=== PATIENT | female | born 1995 | race Caucasian/White ===

== ENCOUNTER → 2016-07-22 | Outpatient (CLI) | payer MEDICAID ==
[2016-07-22 14:05] LABS: ABSOLUTE EOSINOPHILS # (AUTO) 0.1 10^3/uL (0.0-0.6); ABSOLUTE LYMPHOCYTES (AUTO) 1.4 10^3/uL (0.5-4.7); ABSOLUTE MONOCYTES (AUTO) 1.1 10^3/uL (0.1-1.4); ABSOLUTE NEUT (AUTO) 6.2 10^3/uL (1.7-8.2); BASOPHILS % (AUTO) 0.4 % (0-2); EOSINOPHILS % (AUTO) 0.9 % (0-6); HEMATOCRIT 36.9 % (36.0-47.0); HEMOGLOBIN 12.8 g/dL (12.0-15.5); HGB HCT DIFFERENCE 1.5; LYMPHOCYTES % (AUTO) 15.9 % (13-45); MEAN CORPUSCULAR HEMOGLOBIN 30.3 pg (27.0-33.4); MEAN CORPUSCULAR HGB CONC 34.6 g/dL (32.0-36.0); MEAN CORPUSCULAR VOLUME 87 fl (80-97); MONOCYTES % (AUTO) 12.1 % (3-13); RED BLOOD COUNT 4.23 10^6/uL (3.72-5.28); RED CELL DISTRIBUTION WIDTH 12.3 % (11.5-14.0); SEGMENTED NEUTROPHILS % (AUTO) 70.7 % (42-78); WHITE BLOOD COUNT 8.8 10^3/uL (4.0-10.5)
[2016-07-22 14:32] LABS: ALANINE AMINOTRANSFERASE 37 U/L (5-35); ALBUMIN 4.2 g/dL (3.7-5.6); ALKALINE PHOSPHATASE 87 U/L (50-135); ANION GAP 15 (5-19); ASPARTATE AMINO TRANSFERASE 22 U/L (5-30); BILIRUBIN,TOTAL 1.2 mg/dL (0.2-1.3); BLOOD UREA NITROGEN 6 mg/dL (7-20); CALCIUM 9.5 mg/dL (8.4-10.2); CARBON DIOXIDE 23 mmol/L (22-30); CHLORIDE 104 mmol/L (98-107); GLUCOSE 73 mg/dL (75-110); POTASSIUM 3.9 mmol/L (3.6-5.0); SODIUM 141.9 mmol/L (137-145)
== END ==
LOC: OD 12:55
PROVIDERS: ATTEND Nurse Practitioner Acute Care
DX: R19.7 Diarrhea, unspecified (principal); R50.9 Fever, unspecified
CPT/HCPCS: 36415; 80053; 85025; 87804

== ENCOUNTER 2016-08-16 15:06 | Emergency (ER) | payer MEDICAID ==
--- NOTE | 2016-08-16 15:33 | ER Document Report ---
ED Medical Screen (RME) - General Stated Complaint: ABDOMINAL PAIN Notes: compalins of abdominal pain and orange vaginal discharge yesterday did just start a period and gave birht 5 months ago. I greeted and performed a rapid initial assessment of this patient. Comprehensive ED assessment and evaluation of the patient, analysis of test results and completion of the medical decision making process will be conducted by additional ED providers. TRAVEL OUTSIDE OF THE [place] IN LAST 30 DAYS: No - Related Data Allergies/Adverse Reactions: azithromycin [From Zithromax Z-Mark] Allergy (Mild, Verified 05/22/16 09:19) rash adhesive [Adhesive] Allergy (Verified 05/22/16 09:19) codeine [Codeine] Allergy (Verified 05/22/16:19) ITCHING, HIVES latex [Latex] Allergy (Verified 05/22/16 09:19) morphine [Morphine] Allergy (Verified 05/22/16 09:19) ITCHING, HIVES Past Medical History - Past Medical History Cardiac Medical History: Denies: Hx Hypertension - KEN SYNDROME/murmur Pulmonary Medical History: Denies: Hx Asthma Musculoskeltal Medical History: Reports Hx Musculoskeletal Trauma Skin Medical History: Reports Hx Eczema Psychiatric Medical History: Reports: Hx Anxiety, Hx Attention Deficit Hyperactivity Disorder Past Surgical History: Reports: Hx Orthopedic Surgery - left knee, Hx Tonsillectomy - Immunizations Immunizations up to date: Yes Hx Diphtheria, Pertussis, Tetanus Vaccination: Yes Physical Exam - Vital signs Vitals: Temp Pulse Resp BP Pulse Ox 98.0 F 82 18 117/68 100 08/16/16 15:08/16/16 15:08/16/16 15:08/16/16 15:29 08/16/16 15:29 Course - Vital Signs Vital signs: Temp Pulse Resp BP Pulse Ox 98.0 F 82 18 117/68 100 08/16/16 15:29 08/16/16 15:29 08/16/16 15:29 08/16/16 15:29 08/16/16 15:29
[2016-08-16 18:42] LABS: APPEARANCE,URINE SLIGHTLY-CLOUDY; BILIRUBIN,URINE NEGATIVE (NEGATIVE); GLUCOSE, URINE NEGATIVE (NEGATIVE); KETONES,URINE NEGATIVE (NEGATIVE); LEUKOCYTE ESTERASE,URINE TRACE (NEGATIVE); NITRITE,URINE NEGATIVE (NEGATIVE); PROTEIN,URINE NEGATIVE (NEGATIVE); URINE SPECIFIC GRAVITY 1.026; UROBILINOGEN,URINE NEGATIVE mg/dL (<2.0)
[2016-08-16] MEDS ORDERED: AZITHROMYCIN 1 GM SUSP PACKET PO ONE (18:54)
[2016-08-16] MEDS ORDERED: FLUCONAZOLE 100 MG TABLET PO ONE (18:55)
--- NOTE | 2016-08-16 20:07 | ER Document Report ---
ED GI/ - General Chief Complaint: Vaginal Bleeding Stated Complaint: ABDOMINAL PAIN Notes: Patient says that she's had an orange discharge for the past 2 weeks. It's been a daily occurrence and been associated with some abdominal and back pains. Last night, she also noted she was passing some blood with chunks of butler. Patient saw her local [employer] doctor just last Wednesday, 5 days ago, and she did a pelvic exam and took specimens. Patient says that when she told that about the orange discharge, she didn't say anything. Patient is not on any current medications or knows of nothing in her diet that would possibly cause the orange color. Patient has some urinary frequency as well as some burning with urination. Had a fever of the 100.1 last night. Patient is on Depakote for control. Her last cycle was June 24. TRAVEL OUTSIDE OF THE [place] IN LAST 30 DAYS: No - Related Data Allergies/Adverse Reactions: azithromycin [From Zithromax Z-Mark] Allergy (Mild, Verified 08/16/16 20:04) rash adhesive [Adhesive] Allergy (Verified 08/16/16 20:04) codeine [Codeine] Allergy (Verified 08/16/16 20:04) ITCHING, HIVES latex [Latex] Allergy (Verified 08/16/16 20:04) morphine [Morphine] Allergy (Verified 08/16/16 20:04) ITCHING, HIVES Past Medical History - Social History Smoking Status: Unknown if Ever Smoked Cigarette use (# per day): No Family History: Reviewed & Not Pertinent, CVA Patient has suicidal ideation: No Patient has homicidal ideation: No Musculoskeltal Medical History: Reports Hx Musculoskeletal Trauma Skin Medical History: Reports Hx Eczema Psychiatric Medical History: Reports: Hx Anxiety, Hx Attention Deficit Hyperactivity Disorder Past Surgical History: Reports: Hx Cholecystectomy, Hx Orthopedic Surgery - left knee, Hx Tonsillectomy - Immunizations Immunizations up to date: Yes Hx Diphtheria, Pertussis, Tetanus Vaccination: Yes Review of Systems - Review of Systems Notes: REVIEW OF SYSTEMS: CONSTITUTIONAL : Denies fever except for last night of 100.1. EENT: Denies eye, ear, nose or mouth or throat pain or other symptoms. CARDIOVASCULAR: Denies chest pain. RESPIRATORY: Denies cough, chest congestion, or shortness of breath. GASTROINTESTINAL: See history of present illness. GENITOURINARY: See history of present illness. MUSCULOSKELETAL: Denies back or neck pain. Denies joint pain or swelling. SKIN: Denies rash or skin lesions. NEUROLOGICAL: Denies LOC or altered mental status. Denies headache. Denies sensory loss or motor deficits. ALL OTHER SYSTEMS REVIEWED AND NEGATIVE. Physical Exam - Vital signs Vitals: Temp Pulse Resp BP Pulse Ox 98.0 F 82 18 117/68 100 08/16/16 15:29 08/16/16 15:29 08/16/16 15:29 08/16/16 15:29 08/16/16 15:29 - Notes Notes: PHYSICAL EXAMINATION: GENERAL: Well-appearing, in no acute distress. Vital signs are normal. HEAD: Atraumatic, normocephalic. NECK: Normal range of motion, supple. LUNGS: Breath sounds clear and equal bilaterally. HEART: Regular rate and rhythm without murmurs. ABDOMEN: Soft, nontender. No guarding or rebound. BACK: No tenderness throughout entire back. EXTREMITIES: Normal range of motion without pain. NEUROLOGICAL: Normal speech, normal gait. Normal sensory, motor, and reflex exams. Awake, alert, and oriented x3. Cranial nerves normal. SKIN: Warm, dry, no rashes. - Genitourinary External exam: Normal Speculum exam: Cervix closed, Other - Nothing orange seen in the vaginal exam.. No: Vaginal discharge Vaginal bleeding: Mild - couple of small droplets of blood are present at the cervical os. It's a relatively bright, pink color not deep burgundy colored like total blood. I don't characterize it as orange, however. Bimanuel exam: Normal. No: Cervical motion tender, Adnexal mass, Adnexal tenderness, Uterus enlarged Course - Re-evaluation Re-evalutation: 08/16/16 20:39 Plan is to treat the patient is a bacterial vaginosis with multi drug treatment. If her symptoms do not resolve in 3-4 days, advised her to follow back up with Dr. Salamanca in a week. Should she develop fever or significant abdominal pains, patient is advised to return for reevaluation and further testing such as an ultrasound. - Vital Signs Vital signs: Temp Pulse Resp BP Pulse Ox 98.3 F 86 20 115/72 99 08/16/16 20:24 08/16/16 20:24 08/16/16 20:24 08/16/16 20:24 08/16/16 20:24 - Laboratory Laboratory results interpreted by me: 08/16/16 18:10 Urine Blood SMALL H Ur Leukocyte Esterase TRACE H 08/16/16 20:40 Urine test negative. Discharge - Discharge Clinical Impression: Bacterial vaginosis Condition: Stable Disposition: HOME, SELF-CARE Additional Instructions: VAGINITIS: Your exam shows that you have vaginitis, a vaginal infection. The infection can be caused by a many different organisms, including trichomonas or Gardnerella. The usual symptoms are vaginal irritation and discharge. The treatment is usually antibiotics such as Flagyl. Laboratory tests can determine which germ is responsible. Use the medication as prescribed. Because this infection can be transmitted sexually, your sexual partner may need to be checked and treated also. If your physician has not discussed this with you, please check before resuming sexual relations. If a culture shows gonorrhea or chlamydia, the infection must be reported to the health department. Call the doctor if you develop pelvic pain, fever, or problems with urination, or if you don't improve as expected. VAGINOSIS, BACTERIAL: Your exam shows you have bacterial vaginosis. This condition is due to an overgrowth of bacteria in the vagina. Symptoms may include vaginal itching or pain, a smelly discharge, and sometimes burning with urination. Normally this is not transmitted by sexual contact. Vaginosis can be treated with oral or topical antibiotics. Metronidazole ( Flagyl) pills are usually effective. Topical vaginal creams include Cleocin and Metro-Gel. You should avoid sexual contact until your symptoms are all better. Call the doctor if you develop pelvic pain, fever, or problems with urination, or if you don't improve as expected. VAGINAL YEAST INFECTION: You have evidence of a yeast infection -- called "marisela." A vaginal yeast infection often causes itching and discharge. While not dangerous, it can be very unpleasant. A yeast infection often follows the use of powerful antibiotics. It is more likely to occur in diabetics. The treatment now is usually a single pill of Diflucan, but also an antifungal cream or suppository may be used for a few days. You do not need to avoid sexual intercourse. Recurrences are common. You can make a recurrence less likely by wearing cotton underwear and avoiding tight clothing. For mild recurrences, you can try ungo-keh-hozpnrm creams or suppositories that are made specifically for yeast. If the symptoms do not resolve, you should follow up for re-examination. Sometimes treatment of the sexual partner is necessary if infections are recurrent. VAGINAL TRICHOMONAS INFECTION: Trichomoniasis is infection of the vagina or male genital tract with Trichomonas vaginalis. It can be asymptomatic or cause urethritis, vaginitis, or occasionally cystitis, epididymitis, or prostatitis. Diagnosis is by microscopic examination of vaginal or prostatic secretions or by urethral culture. Patients and sex partners are treated with metronidazole. T. vaginalis is a flagellated, sexually transmitted protozoan that more often infects women (about 20% of women of reproductive age) than men. Infection may be asymptomatic in either sex, but asymptomatic is the rule for men. In men, protozoa may persist for long periods in the tract without causing symptoms; thus, protozoa may be transmitted unwittingly to sex partners. Trichomoniasis may account for up to 5% of nongonococcal, nonchlamydial urethritis in men in some areas. Co-infection with gonorrhea and other sexually transmitted diseases (STDs) is common. In women, symptoms range from none to copious, yellow-green, frothy vaginal discharge with soreness of the vulva and perineum, dyspareunia, and dysuria. Asymptomatic infection may become symptomatic at any time as the vulva and perineum become inflamed and edema develops in the labia. The vaginal quinn and surface of the cervix may have punctate, red "strawberry" spots. Urethritis and possibly cystitis may also occur. Men are usually asymptomatic; however, sometimes urethritis results in a discharge that may be transient, frothy, or purulent or that causes dysuria and frequency, usually early in the morning. Often, urethritis is mild and causes only minimal urethral irritation and occasional moisture at the urethral meatus , under the foreskin, or both. Epididymitis and prostatitis are rare complications. Trichomoniasis is suspected in women with vaginitis, in men with urethritis , and in their sex partners. Suspicion is high if symptoms persist after patients have been evaluated and treated for other infections such as gonorrhea and chlamydial, mycoplasmal, and ureaplasmal infections. In women, diagnosis is based on clinical criteria and in-office testing. The saline wet mount is examined microscopically as soon as possible to detect trichomonads.In men, microscopy of urine is insensitive, although occasionally organisms are visible in a first-voided morning specimen or a centrifuged specimen. Cultures of urine and urethral swabs are more sensitive. As with diagnosis of any STD, patients with trichomoniasis should be tested to exclude other common STDs such as gonorrhea and chlamydial infection. Metronidazole or tinidazole 2 g po in a single dose cures up to 95% of women if sex partners are treated simultaneously. Effectiveness of single-dose regimens in men is not as clear, so treatment is typically with metronidazole or tinidazole 500 mg bid for 5 to 7 days. Sex partners should be screened and treated for trichomoniasis and other STDs. If poor adherence to follow-up is likely, treatment can be initiated in sex partners of patients with documented trichomoniasis without confirming the diagnosis in the partner. Metronidazole Metronidazole (Flagyl) has been prescribed. This medication is used to kill a type of bacteria called anaerobes, and protozoan parasites such as trichomonas and Giardia. Flagyl often causes a metallic taste in the mouth and mild nausea. Do not use alcohol in any form with Flagyl (including alcohol in medication elixirs). Flagyl interacts with alcohol to cause flushing, palpitations, headache, stomach cramps, and vomiting. Do not use Flagyl if you are taking Antabuse (disulfiram). Call the doctor at once if you develop rash, shortness of breath, itching, or lightheadedness. Doxycycline Doxycycline (Vibramycin, Doryx) is an antibiotic of the tetracycline family. This type of drug is useful for infections of the respiratory tract and genital tract, and is sometimes used for intestinal infections. Unlike most tetracyclines, doxycycline can be taken with food. It is longer acting, and (usually) less prone to side effects than regular tetracycline. Tetracycline antibiotics can stain immature teeth and SHOULD NOT BE TAKEN BY CHILDREN, NURSING MOTHERS, OR WOMEN. Tetracyclines can make you more prone to sunburn. Abdominal cramping, nausea, and diarrhea are occasional side effects. Women may experience vaginal yeast infections. Call the doctor at once if you develop hives, itching, shortness of breath , or lightheadedness. FLUCONAZOLE: Fluconazole (Diflucan) is an antifungal drug. It is useful for serious fungal infections, but is also excellent for oral or vaginal yeast infections. Diflucan interacts with some medicines. This is a concern if you are taking anticoagulants (such as Coumadin), phenytoin (Dilantin), cyclosporin, or oral hypoglycemics (such as tolbutamide, Orinase, glipizide, Glucotrol, glyburide, DiaBeta, Glynase, and Micronase). Be sure the doctor knows if you are taking one of these medicines. We don't know how Diflucan affects . If you are planning to become , discuss this with your doctor. Diflucan has few side effects. Minor side effects may include nausea, headache, or diarrhea. Call the doctor if you develop a skin rash, shortness of breath, or other new symptoms. FOLLOW-UP CARE: If you have been referred to a physician for follow-up care, call the physician s office for an appointment as you were instructed or within the next two days. If you experience worsening or a significant change in your symptoms, notify the physician immediately or return to the Emergency Department at any time for re-evaluation. Don't nurse your baby while you are taking these prescribed medications. Prescriptions: Doxycycline Hyclate 100 mg PO BID #14 capsule Fluconazole [Diflucan] 150 mg PO ONCE PRN #1 tablet PRN Reason: Metronidazole 500 mg PO BID #14 tablet Promethazine HCl [Phenergan 25 mg Tablet] 1 - 2 tab PO Q6H PRN #20 tablet PRN Reason: Referrals: JONATHAN SALAMANCA MD [[facility]] - Follow up in 3-5 days
[2016-08-16 20:13] LABS: CHLAM PCR NOT DETECTED (NOT DETECT)
[2016-08-16 20:25] VITALS: BP 115/72
== END 2016-08-16 20:26 | disposition home or self-care (01) ==
LOC: ER 15:06
DX: N76.0 Acute vaginitis (principal); B96.89 Other specified bacterial agents as the cause of diseases classified elsewhere; Z91.040 Latex allergy status; Z88.6 Allergy status to analgesic agent; Z88.3 Allergy status to other anti-infective agents; Z90.49 Acquired absence of other specified parts of digestive tract
CPT/HCPCS: 81001; 81025; 87210; 87491; 87591; 99283

== ENCOUNTER → 2016-09-18 | Outpatient (CLI) | payer MEDICAID | LOC: WI 07:04 | PROVIDERS: ATTEND Nurse Practitioner | DX: R10.9 Unspecified abdominal pain (principal) | CPT/HCPCS: 76700; 76856 ==

== ENCOUNTER → 2016-09-29 | Outpatient (CLI) | payer MEDICAID | LOC: RAD 10:49 | PROVIDERS: ATTEND Nurse Practitioner | DX: R10.9 Unspecified abdominal pain (principal) | CPT/HCPCS: 76830 ==

== ENCOUNTER 2016-10-20 13:39 | Emergency (ER) | payer MEDICAID ==
[2016-10-20] MEDS ORDERED: KETOROLAC TROMETHAMINE 60 MG/2 ML SDV IM ONE (14:52)
[2016-10-20] MEDS ORDERED: NORMAL SALINE 1000 ML 1,000 ML IV ONE (14:52)
[2016-10-20] MEDS ORDERED: ONDANSETRON 4 MG TAB.RAPDIS PO ONE (14:52)
--- NOTE | 2016-10-20 15:00 | ER Document Report ---
ED Medical Screen (RME) - General Mode of Arrival: Ambulatory Information source: Patient TRAVEL OUTSIDE OF THE [place] IN LAST 30 DAYS: No - HPI Patient complains to provider of: Abdominal pain and vomiting Onset: Other - 2 days ago Associated Symptoms: Other - see notes above <ZE TRUJILLO - Last Filed: 10/20/16 14:52> <BETTY BEASLEY - Last Filed: 10/20/16 15:24> - General Chief Complaint: Nausea/Vomiting Stated Complaint: VOMITING Notes: 20 year old female with history of emergency cholecystectomy presents to the ED complaining of vomiting and right abdominal pain that started 2 days ago. Patient reports that ever since she had the cholecystectomy she has been passing dark urine with some blood. Patient was seen by her primary care physician 3 weeks ago where there was a positive test of blood in her urine. Patient denies dysuria or history of kidney stones. (ZE TRUJILLO) - Related Data Allergies/Adverse Reactions: azithromycin [From Zithromax Z-Mark] Allergy (Mild, Verified 10/20/16 14:49) rash adhesive [Adhesive] Allergy (Verified 10/20/16 14:49) codeine [Codeine] Allergy (Verified 10/20/16 14:49) ITCHING, HIVES latex [Latex] Allergy (Verified 10/20/16 14:49) morphine [Morphine] Allergy (Verified 10/20/16 14:49) ITCHING, HIVES Home Medications: Current Home Medications No Home Medications 10/20/16 [History] Past Medical History - General Information source: Patient - Past Medical History Cardiac Medical History: Denies: Hx Hypertension - KEN SYNDROME/murmur Pulmonary Medical History: Denies: Hx Asthma Renal/ Medical History: Denies: Hx Peritoneal Dialysis Musculoskeltal Medical History: Reports Hx Musculoskeletal Trauma Skin Medical History: Reports Hx Eczema Psychiatric Medical History: Reports: Hx Anxiety, Hx Attention Deficit Hyperactivity Disorder Past Surgical History: Reports: Hx Cholecystectomy, Hx Orthopedic Surgery - left knee, Hx Tonsillectomy - Immunizations Immunizations up to date: Yes Hx Diphtheria, Pertussis, Tetanus Vaccination: Yes <ZE TRUJILLO - Last Filed: 10/20/16 14:52> Review of Systems - Review of Systems Constitutional: No symptoms reported EENT: No symptoms reported Cardiovascular: No symptoms reported Respiratory: No symptoms reported Gastrointestinal: See HPI, Abdominal pain - right side, Vomiting Genitourinary: No symptoms reported Female Genitourinary: No symptoms reported Musculoskeletal: No symptoms reported Skin: No symptoms reported Hematologic/Lymphatic: No symptoms reported Neurological/Psychological: No symptoms reported -: Yes All other systems reviewed and negative <ZE TRUJILLO - Last Filed: 10/20/16 14:52> Physical Exam - General General appearance: Alert In distress: None - Respiratory Respiratory status: No respiratory distress - Abdominal Inspection: Normal Distension: No distension Tenderness: Tender - RUQ and RLQ tenderness to palpation <ZE TRUJILLO - Last Filed: 10/20/16 14:52> Course <ZE TRUJILLO - Last Filed: 10/20/16 14:52> - Laboratory Result Diagrams: 10/20/16 14:59 10/20/16 14:59 <BETTY BEASLEY - Last Filed: 10/20/16 15:24> - Re-evaluation Re-evalutation: 10/20/16 15:24 I personally performed the services described in the documentation, reviewed and edited the documentation which was dictated to the scribe in my presence, and it accurately records my words and actions. (BETTY BEASLEY) - Vital Signs Vital signs: Temp Pulse Resp BP Pulse Ox 97.4 F 90 16 128/62 H 99 10/20/16 13:47 10/20/16 13:47 10/20/16 13:47 10/20/16 13:47 10/20/16 13:47 - Laboratory Laboratory results interpreted by me: 10/20/16 14:59 Urine Ketones TRACE H Scribe Documentation - Scribe Written by Scribe:: Luis Felipe Greenberg, 10/20/2016 1500 acting as scribe for :: Olga <ZE TRUJILLO - Last Filed: 10/20/16 14:52>
[2016-10-20 15:11] LABS: ABSOLUTE BASOPHILS # (AUTO) 0.1 10^3/uL (0.0-0.2); ABSOLUTE EOSINOPHILS # (AUTO) 0.2 10^3/uL (0.0-0.6); ABSOLUTE LYMPHOCYTES (AUTO) 2.3 10^3/uL (0.5-4.7); ABSOLUTE MONOCYTES (AUTO) 0.7 10^3/uL (0.1-1.4); BASOPHILS % (AUTO) 0.8 % (0-2); EOSINOPHILS % (AUTO) 2.3 % (0-6); HEMATOCRIT 43.1 % (36.0-47.0); HEMOGLOBIN 14.5 g/dL (12.0-15.5); HGB HCT DIFFERENCE 0.4; MEAN CORPUSCULAR HEMOGLOBIN 29.2 pg (27.0-33.4); MEAN CORPUSCULAR HGB CONC 33.7 g/dL (32.0-36.0); MEAN CORPUSCULAR VOLUME 87 fl (80-97); MONOCYTES % (AUTO) 8.5 % (3-13); RED BLOOD COUNT 4.97 10^6/uL (3.72-5.28); RED CELL DISTRIBUTION WIDTH 13.9 % (11.5-14.0); SEGMENTED NEUTROPHILS % (AUTO) 60.4 % (42-78); WHITE BLOOD COUNT 8.4 10^3/uL (4.0-10.5)
[2016-10-20 15:16] LABS: APPEARANCE,URINE SLIGHTLY-CLOUDY; BILIRUBIN,URINE NEGATIVE (NEGATIVE); GLUCOSE, URINE NEGATIVE (NEGATIVE); KETONES,URINE TRACE mg/dL (NEGATIVE); LEUKOCYTE ESTERASE,URINE NEGATIVE (NEGATIVE); NITRITE,URINE NEGATIVE (NEGATIVE); PROTEIN,URINE NEGATIVE (NEGATIVE); URINE SPECIFIC GRAVITY 1.031; UROBILINOGEN,URINE NEGATIVE mg/dL (<2.0)
[2016-10-20 15:28] LABS: ALANINE AMINOTRANSFERASE 28 U/L (5-35); ALKALINE PHOSPHATASE 91 U/L (50-135); ANION GAP 13 (5-19); ASPARTATE AMINO TRANSFERASE 20 U/L (5-30); BILIRUBIN,DIRECT 0.1 mg/dL (0.0-0.4); BILIRUBIN,TOTAL 0.7 mg/dL (0.2-1.3); BLOOD UREA NITROGEN 11 mg/dL (7-20); CALCIUM 10.7 mg/dL (8.4-10.2); CARBON DIOXIDE 28 mmol/L (22-30); CHLORIDE 104 mmol/L (98-107); CREATININE RESULT 0.78 mg/dL (0.52-1.25); GLUCOSE 52 mg/dL (75-110); POTASSIUM 4.2 mmol/L (3.6-5.0); SODIUM 145.4 mmol/L (137-145); TOTAL PROTEIN 7.8 g/dL (6.3-8.2)
--- NOTE | 2016-10-20 15:32 | ER Document Report ---
ED GI/ - General Chief Complaint: Nausea/Vomiting Stated Complaint: VOMITING Mode of Arrival: Ambulatory Information source: Patient TRAVEL OUTSIDE OF THE [place] IN LAST 30 DAYS: No - HPI Patient complains to provider of: Abdominal pain. No: Diarrhea Onset: Other - 2 days ago Quality of pain: Dull Severity at maximum: Moderate Associated symptoms: Diarrhea, Nausea, Vomiting. denies: Chest pain, Chills, Constipation, Dizzy, Dysuria, Fever, Hard stool, Hematuria, Odor, Shortness of breath, Sweaty, Syncope, Urinary hesitancy, Urinary frequency, Urinary retention , Urinary urgency, Vaginal discharge Notes: 10/20/16 15:30 Patient arrives with complaints of abdominal pain. She states she's had constant right-sided abdominal pain for the last few days. She had associated nausea vomiting and diarrhea as well. No fever. No dysuria or hematuria. She had her gallbladder removed in May. She states that she was seen by her primary care physician approximately 3 weeks ago was noted to have blood in her urine. She denies any history of kidney stones. She denies any rash. No injury. She is breast-feeding at this time. She denies any other complaints at this time. Nothing makes the pain better or worse. - Related Data Allergies/Adverse Reactions: azithromycin [From Zithromax Z-Mrak] Allergy (Mild, Verified 10/20/16 14:49) rash adhesive [Adhesive] Allergy (Verified 10/20/16 14:49) codeine [Codeine] Allergy (Verified 10/20/16 14:49) ITCHING, HIVES latex [Latex] Allergy (Verified 10/20/16 14:49) morphine [Morphine] Allergy (Verified 10/20/16 14:49) ITCHING, HIVES Past Medical History - General Information source: Patient - Social History Smoking Status: Unknown if Ever Smoked Family History: Reviewed & Not Pertinent, CVA Patient has suicidal ideation: No Patient has homicidal ideation: No - Past Medical History Cardiac Medical History: Denies: Hx Hypertension - KEN SYNDROME/murmur Pulmonary Medical History: Denies: Hx Asthma Renal/ Medical History: Denies: Hx Peritoneal Dialysis Musculoskeltal Medical History: Reports Hx Musculoskeletal Trauma Skin Medical History: Reports Hx Eczema Psychiatric Medical History: Reports: Hx Anxiety, Hx Attention Deficit Hyperactivity Disorder Past Surgical History: Reports: Hx Cholecystectomy, Hx Orthopedic Surgery - left knee, Hx Tonsillectomy - Immunizations Immunizations up to date: Yes Hx Diphtheria, Pertussis, Tetanus Vaccination: Yes Review of Systems - Review of Systems -: Yes All other systems reviewed and negative Physical Exam - Vital signs Vitals: Temp Pulse Resp BP Pulse Ox 97.4 F 90 16 128/62 H 99 10/20/16 13:47 10/20/16 13:47 10/20/16 13:47 10/20/16 13:47 10/20/16 13:47 Interpretation: Normal - General General appearance: Appears well, Alert - HEENT Head: Normocephalic, Atraumatic Eyes: Normal Pupils: PERRL Mucous membranes: Normal Pharynx: Normal - Respiratory Respiratory status: No respiratory distress Breath sounds: Normal - Cardiovascular Rhythm: Regular Heart sounds: Normal auscultation Murmur: No - Abdominal Inspection: Normal Distension: No distension Bowel sounds: Normal Tenderness: Tender - Right mid abdomen. No guarding or rebound. Organomegaly: No organomegaly - Back Back: Normal, Nontender, CVA tenderness - Extremities General upper extremity: Normal inspection, Nontender, Normal color, Normal ROM , Normal temperature General lower extremity: Normal inspection, Nontender, Normal color, Normal ROM , Normal temperature, Normal weight bearing. No: Esequiel's sign - Neurological Neuro grossly intact: Yes Cognition: Normal Orientation: AAOx4 Edda Coma Scale Eye Opening: Spontaneous Edda Coma Scale Verbal: Oriented Edda Coma Scale Motor: Obeys Commands [place] Coma Scale Total: 15 Speech: Normal Motor strength normal: LUE, RUE, LLE, RLE Sensory: Normal - Psychological Associated symptoms: Normal affect, Normal mood - Skin Skin Temperature: Warm Skin Moisture: Dry Skin Color: Normal Course - Re-evaluation Re-evalutation: 10/20/16 17:42 Patient is nontoxic-appearing and stable vitals. The patient arrives with right sided abdominal pain for the last few days. She has mild tenderness to palpation of the right abdomen. There is no rebound or guarding. Lab work is all unremarkable with a normal white count and normal LFTs. Urine shows no signs of infection. is negative. Patient is breast-feeding and refused IV contrast as this would cause her to have to pump and dump her breast milk for 24 hours, therefore a noncontrast CT was obtained. There were not able to visualize the appendix, but there was no other signs of inflammation noted, and the patient was noted to have a large amount of stool within the ascending colon. It is possible that this constipation could be the source of her pain. I also explained to the patient that the fact that we did a noncontrast study that is not completely impossible to completely rule out acute appendicitis although this is less likely with a normal white count as well. She was instructed to follow up if her pain does not improve in the next 24-48 hours and return sooner if her pain worsens or she may require a contrasted CAT scan to further evaluate her symptoms. Patient will be discharged home with MiraLAX Zoan. She is instructed Tylenol or Motrin is here for pain. The patient is noted to have elevated blood pressure during today's emergency department visit. The patient was informed of this finding. The patient was instructed that this may be related to pre-hypertension and requires further evaluation with a primary care provider. The patient has no hypertensive symptoms at this time. The patient's evaluation of abdominal pain showed no obvious reason for pain during this emergency department visit today. I explained that there is the possibility that there could be a serious reason for the abdominal pain that was not discovered with today's workup. I stressed the importance of close observation as well as close follow-up for re-evaluation of the abdominal pain. The patient and/or family verbalized understanding of these instructions. He will be instructed to return immediately to the emergency department for increased abdominal pain, persistent vomiting, blood in vomit or stool, or any other change in symptoms or concerns. The patient's emergency department workup and current diagnosis were explained to the patient and or family. Follow-up instructions were provided. Medications if prescribed were discussed. Instructions for when to return to the emergency department including specific worrisome symptoms were discussed with the patient and/or family. - Vital Signs Vital signs: Temp Pulse Resp BP Pulse Ox 97.4 F 90 16 128/62 H 99 10/20/16 13:47 10/20/16 13:47 10/20/16 13:47 10/20/16 13:47 10/20/16 13:47 - Laboratory Result Diagrams: 10/20/16 14:59 10/20/16 14:59 Laboratory results interpreted by me: 10/20/16 10/20/16 14:59 14:59 Sodium 145.4 H Glucose 52 L Calcium 10.7 H Urine Ketones TRACE H - Diagnostic Test Radiology reviewed: Image reviewed, Reports reviewed - CT shows nonvisualization of the appendix, no other signs of inflammation, large amount of stool within the ascending colon. Discharge - Discharge Clinical Impression: Abdominal pain Qualifiers: Abdominal location: right lower quadrant Qualified Code(s): R10.31 - Right lower quadrant pain Constipation Qualifiers: Constipation type: unspecified constipation type Qualified Code(s): K59.00 - Constipation, unspecified Condition: Stable Disposition: HOME, SELF-CARE Instructions: Abdominal Pain ([facility]), Constipation ([facility]) Additional Instructions: Take medications as prescribed. Drink plenty of fluids. Follow-up with your doctor if not better in 24-48 hours, return to emergency Department for increased pain, high fever, persistent vomiting, or any further concerns. Your blood pressure was elevated during today's visit. Have this rechecked with your doctor. Prescriptions: Ondansetron HCl [Zofran 4 mg Tablet] 1 tab PO Q6H PRN #10 tablet PRN Reason: Polyethylene Glycol 3350 [Miralax] 119 gm PO DAILY #1 bottle Forms: Elevated Blood Pressure
[2016-10-20 17:53] VITALS: BP 103/63
== END 2016-10-20 18:01 | disposition home or self-care (01) ==
LOC: ER 13:39
DX: R10.31 Right lower quadrant pain (principal); K59.00 Constipation, unspecified; R11.2 Nausea with vomiting, unspecified; R10.9 Unspecified abdominal pain
CPT/HCPCS: 99284; 96372; 36415; 84703; 85025; 80053; 81001; 74176; J1885; S0119; J7030

== ENCOUNTER → 2016-11-10 | Outpatient (CLI) | payer MEDICAID ==
[2016-11-10 15:19] LABS: CHLAM PCR NOT DETECTED (NOT DETECT)
== END ==
LOC: LAB 13:41
PROVIDERS: ATTEND Nurse Practitioner Acute Care
DX: N91.2 Amenorrhea, unspecified (principal); N89.8 Other specified noninflammatory disorders of vagina
CPT/HCPCS: 36415; 84703; 87210; 87491; 87591

== ENCOUNTER 2016-11-21 14:07 | Emergency (ER) | payer MEDICAID ==
--- NOTE | 2016-11-21 14:55 | ER Document Report ---
HPI - HPI Patient complains to provider of: streaking in her right breast, vaginal itch, Onset: Other - Few days Onset/Duration: Gradual Pain Level: 4 Context: 20-year-old female that is breast-feeding with multiple complaints. The thing this bothering her most is the red streaks in her right breast and vaginal itching. She also states that she is now taking acyclovir for recurrent left facial shingles. She also got a itchy Yudy area mid upper thoracic back the base of her neck and was worried that she was developing shingles there is well. The pain from that area radiates to both shoulders. Associated Symptoms: None Exacerbated by: Denies Relieved by: Denies Similar symptoms previously: No Recently seen / treated by doctor: No - ROS ROS below otherwise negative: Yes Systems Reviewed and Negative: Yes All other systems reviewed and negative - REPRODUCTIVE Reproductive: DENIES: : - DERM Skin Color: Normal Past Medical History - General Information source: Patient - Social History Smoking Status: Never Smoker Frequency of alcohol use: None Drug Abuse: None Family History: Reviewed & Not Pertinent, CVA Patient has suicidal ideation: No Patient has homicidal ideation: No Renal/ Medical History: Denies: Hx Peritoneal Dialysis Musculoskeltal Medical History: Reports Hx Musculoskeletal Trauma Skin Medical History: Reports Hx Eczema Psychiatric Medical History: Reports: Hx Anxiety, Hx Attention Deficit Hyperactivity Disorder Past Surgical History: Reports: Hx Cholecystectomy, Hx Orthopedic Surgery - left knee, Hx Tonsillectomy - Immunizations Immunizations up to date: Yes Hx Diphtheria, Pertussis, Tetanus Vaccination: Yes Vertical Provider Document - CONSTITUTIONAL Agree With Documented VS: Yes Exam Limitations: No Limitations - INFECTION CONTROL TRAVEL OUTSIDE OF THE [place] IN LAST 30 DAYS: No - HEENT HEENT: Normocephalic, Pharyngeal Erythema. negative: Tympanic Membrane Red Notes: no rash on upper back or face - NECK Neck: Supple. negative: Lymphadenopathy-Left, Lymphadenopathy-Right - RESPIRATORY Respiratory: Breath Sounds Normal, No Respiratory Distress O2 Sat by Pulse Oximetry: 100 Notes: pink streaks, no mass right breast, pt states nipple is sore - CARDIOVASCULAR Cardiovascular: Regular Rate, Regular Rhythm - GI/ABDOMEN Gastrointestinal: Abdomen Soft, Abdomen Non-Tender, No Organomegaly - BACK Back: Normal Inspection - MUSCULOSKELETAL/EXTREMETIES Musculoskeletal/Extremeties: FIDE NINO - NEURO Level of Consciousness: Awake, Alert, Appropriate - DERM Integumentary: Warm, Dry Course - Vital Signs Vital signs: Temp Pulse Resp BP Pulse Ox 97.6 F 84 18 111/72 100 11/21/16 14:14 11/21/16 14:14 11/21/16 14:14 11/21/16 14:14 11/21/16 14:14 Discharge - Discharge Clinical Impression: early mastitis, Vaginal itching Condition: Good Disposition: HOME, SELF-CARE Instructions: Nystatin ([facility]), Cephalexin ([facility]) Additional Instructions: see your doctor for follow up to er any increased swelling, pain, fever, reddness it is OK to nurse after applying the nystatin to nipples Please complete the patient satisfaction survey if you get one, and return it.. If you do not receive a survey, then you can go to the [facility] website, [email or web address] and place your comments about your very good care. Thank you very much. It was a pleasure being your medical provider today. Prescriptions: Cephalexin Monohydrate [Keflex 500 mg Capsule] 500 mg PO QID #28 capsule Nystatin 100,000 unit TOP QID #60 ml Referrals: XAVI THOMAS, MONONITROTOLUENE OPERATOR [Primary Care Provider] - Follow up as needed
[2016-11-21 16:39] VITALS: BP 108/57
== END 2016-11-21 16:39 | disposition home or self-care (01) ==
LOC: ER 14:07
DX: N61.0 Mastitis without abscess (principal); L29.8 Other pruritus; B02.9 Zoster without complications; R20.2 Paresthesia of skin
CPT/HCPCS: 87210; 99283

== ENCOUNTER 2016-12-06 03:00 | Emergency (ER) | payer MEDICAID ==
[2016-12-06 05:17] VITALS: BP 101/67
== END 2016-12-06 05:20 | disposition left against medical advice (07) ==
LOC: ER 03:00
DX: Z53.9 Procedure and treatment not carried out, unspecified reason (principal); F41.9 Anxiety disorder, unspecified

== ENCOUNTER 2016-12-29 20:59 | Emergency (ER) | payer MEDICAID ==
--- NOTE | 2016-12-29 22:29 | EKG REPORT ---
SEVERITY:- BORDERLINE ECG - SINUS TACHYCARDIA PROBABLE LEFT ATRIAL ABNORMALITY : Confirmed by: Whitley Arenas 29-Dec-2016 22:28:23
--- NOTE | 2016-12-30 00:14 | ER Document Report ---
ED General - General Mode of Arrival: Ambulatory Information source: Patient TRAVEL OUTSIDE OF THE [place] IN LAST 30 DAYS: No <MARY JO FUENTES - Last Filed: 12/30/16 03:54> <LUIS FERNANDO CEDEÑO - Last Filed: 01/11/17 11:21> - General Chief Complaint: Chest Pain Stated Complaint: CHEST PAIN Time Seen by Provider: 12/29/16 23:43 Notes: patient is a 21-year-old female that presents to the emergency department today with complaints of chest pain that began around 2030 today. Patient states the pain seemed to radiate to her back and she noticed that she was feeling tingling around her lips and her fingertip when this occurred. Patient states she does have a history of panic attacks. Patient complains of left calf pain as well. Patient denies a history of any clotting disorders or usage of control. (MARY JO FUENTES) - Related Data Allergies/Adverse Reactions: azithromycin [From Zithromax Z-Mark] Allergy (Mild, Verified 01/09/17 17:07) rash adhesive [Adhesive] Allergy (Verified 01/09/17 17:07) codeine [Codeine] Allergy (Verified 01/09/17 17:07) ITCHING, HIVES latex [Latex] Allergy (Verified 01/09/17 17:07) morphine [Morphine] Allergy (Verified 01/09/17 17:07) ITCHING, HIVES Past Medical History - General Information source: Patient - Social History Smoking Status: Never Smoker Frequency of alcohol use: None Drug Abuse: None Lives with: Family Family History: Reviewed & Not Pertinent, CVA Patient has suicidal ideation: No Patient has homicidal ideation: No - Past Medical History Cardiac Medical History: Denies: Hx Hypertension - KEN SYNDROME/murmur Pulmonary Medical History: Denies: Hx Asthma Renal/ Medical History: Denies: Hx Peritoneal Dialysis Musculoskeltal Medical History: Reports Hx Musculoskeletal Trauma Skin Medical History: Reports Hx Eczema Psychiatric Medical History: Reports: Hx Anxiety, Hx Attention Deficit Hyperactivity Disorder Past Surgical History: Reports: Hx Cholecystectomy, Hx Orthopedic Surgery - left knee, Hx Tonsillectomy - Immunizations Immunizations up to date: Yes Hx Diphtheria, Pertussis, Tetanus Vaccination: Yes <MARY JO FUENTES - Last Filed: 12/30/16 03:54> Review of Systems - Review of Systems Constitutional: No symptoms reported EENT: No symptoms reported Cardiovascular: See HPI, Chest pain Respiratory: No symptoms reported Gastrointestinal: No symptoms reported Genitourinary: No symptoms reported Female Genitourinary: No symptoms reported Musculoskeletal: See HPI, Other - left calf pain Skin: No symptoms reported Hematologic/Lymphatic: No symptoms reported Neurological/Psychological: No symptoms reported -: Yes All other systems reviewed and negative <MARY JO FUENTES - Last Filed: 12/30/16 03:54> Physical Exam <MARY JO FUENTES - Last Filed: 12/30/16 03:54> <LUIS FERNANDO CEDEÑO - Last Filed: 01/11/17 11:21> - Vital signs Vitals: Temp Pulse Resp BP Pulse Ox 97.9 F 113 H 16 127/65 H 96 12/29/16 21:13 12/29/16 21:13 12/29/16 21:13 12/29/16 21:13 12/29/16 21:13 - Notes Notes: Physical Exam: General: Alert, appears well. HEENT: Normocephalic. Atraumatic. PERRL. Extraocular movements intact. Oropharynx clear. Neck: Supple. Non-tender. Respiratory: No respiratory distress. Clear and equal breath sounds bilaterally. Cardiovascular: Regular rate and rhythm. Abdominal: Normal Inspection. Non-tender. No distension. Normal Bowel Sounds. Back: Non-tender. No deformity or step off. Extremities: Moves all four extremities. Upper extremities: Normal inspection. Normal ROM. Lower extremities: Normal inspection. No edema. Normal ROM. Calves are symmetric in size and nontender bilaterally. Neurological: Normal cognition. AAOx4. Normal speech. Psychological: Normal affect. Normal Mood. Skin: Warm. Dry. Normal color. (MARY JO FUENTES) Course - Laboratory Result Diagrams: 12/30/16 00:37 12/30/16 00:37 <MARY JO FUENTES - Last Filed: 12/30/16 03:54> - Laboratory Result Diagrams: 12/30/16 00:37 12/30/16 00:37 <LUIS FERNANDO CEDEÑO - Last Filed: 01/11/17 11:21> - Re-evaluation Re-evalutation: 12/30/16 03:04 Patient presents emergency department chief complaint of chest pain panic attack. She states prior to arrival she started to develop sharp stabbing chest pain that hurt when she took a deep breath. She does run a 30 at night took some aspirin. She has a history of anxiety and depression but states did not feel like an anxiety attack. She denies any recent history of travel surgery immobilization DVT or pulmonary emboli. On arrival she is afebrile normotensive slightly tachycardic with sinus tachycardia on EKG. No reproducible tenderness palpation left anterior chest wall. Concerns for pulmonary embolism and there is some genetic disorder in the family which she thinks predisposes to that. She is initially refusing to CT contrast because she breast-feeds and states that her daughter will not eat anything that breast milk. She asked her to bring a breast pump down which we have. This delayed the CT scan. (LUIS FERNANDO CEDEÑO) - Vital Signs Vital signs: Temp Pulse Resp BP Pulse Ox 98.4 F 75 18 109/62 99 12/30/16 03:37 12/30/16 04:42 12/30/16 04:42 12/30/16 04:42 12/30/16 04:42 - Laboratory Laboratory results interpreted by me: 12/30/16 00:37 Potassium 3.3 L Discharge <MARY JO FUENTES - Last Filed: 12/30/16 03:54> <LUIS FERNANDO CEDEÑO - Last Filed: 01/11/17 11:21> - Discharge Clinical Impression: Pleurodynia, Tachycardia Condition: Stable Disposition: HOME, SELF-CARE Additional Instructions: Chest Pain of Unclear Cause The exact cause of your chest pain isn't clear. Fortunately, there is no evidence of a dangerous medical condition. Further testing may be required to find the source of the pain. Most often, we find that this pain is coming from the chest wall -- the muscles or rib joints in the chest. But chest pain can come from the lung and lung lining, the esophagus, the heart valves or heart lining, and even the stomach or gallbladder. Rest. Eat lightly until the pain is gone. We may prescribe medicine for pain and inflammation. You should call the physician immediately if the pain radiates to the shoulder, jaw or arms; if you start to run a fever or develop a cough; or if you develop shortness of breath, or other new or alarming symptoms. Referrals: JORDIN ZIMMERMAN MD [Primary Care Provider] - (Call for an appointment to be seen in follow-up in 2-3 days return for increasing worsening or new symptoms) Scribe Attestation: 12/30/16 04:22 12/30/16 04:23 I personally performed the services described in the documentation reviewed the documentation recorded by my scribe in my presence and it accurately and completely records my words and actions (LUIS FERNANDO CEDEÑO) Scribe Documentation - Scribe Written by [employer]:: Luis Felipe Christensen, 12/30/2016 [id number] acting as scribe for :: Delgado <MARY JO FUENTES - Last Filed: 12/30/16 03:54>
[2016-12-30 00:54] LABS: ANION GAP 14 (5-19); BLOOD UREA NITROGEN 10 mg/dL (7-20); CARBON DIOXIDE 24 mmol/L (22-30); CHLORIDE 106 mmol/L (98-107); CREATININE RESULT 0.73 mg/dL (0.52-1.25); GLUCOSE 102 mg/dL (75-110); POTASSIUM 3.3 mmol/L (3.6-5.0)
[2016-12-30 00:55] LABS: ABSOLUTE EOSINOPHILS # (AUTO) 0.2 10^3/uL (0.0-0.6); ABSOLUTE LYMPHOCYTES (AUTO) 2.1 10^3/uL (0.5-4.7); ABSOLUTE MONOCYTES (AUTO) 0.6 10^3/uL (0.1-1.4); ABSOLUTE NEUT (AUTO) 5.4 10^3/uL (1.7-8.2); BASOPHILS % (AUTO) 0.5 % (0-2); EOSINOPHILS % (AUTO) 2.5 % (0-6); HEMATOCRIT 38.5 % (36.0-47.0); HEMOGLOBIN 13.1 g/dL (12.0-15.5); HGB HCT DIFFERENCE 0.8; LYMPHOCYTES % (AUTO) 25.4 % (13-45); MEAN CORPUSCULAR VOLUME 88 fl (80-97); RED BLOOD COUNT 4.36 10^6/uL (3.72-5.28); RED CELL DISTRIBUTION WIDTH 12.9 % (11.5-14.0); SEGMENTED NEUTROPHILS % (AUTO) 64.6 % (42-78); WHITE BLOOD COUNT 8.4 10^3/uL (4.0-10.5)
--- NOTE | 2016-12-30 04:21 | RADIOLOGY REPORT (SQ) ---
EXAM DESCRIPTION: CTA CHEST COMPLETED DATE/TIME: 12/30/2016 3:45 am REASON FOR STUDY: pleuritic chest pain tachycardia COMPARISON: Chest x-ray 10/22/2010. TECHNIQUE: CT scan of the chest performed using helical scanning technique with dynamic intravenous contrast injection. Images reviewed with lung, soft tissue and bone windows. Reconstructed coronal and sagittal MPR images reviewed. Additional 3 dimensional post-processing performed to develop Maximal Intensity Projection images (MT P). All images stored on PACS. All CT scanners at this facility use dose modulation, iterative reconstruction, and/or weight based d osing when appropriate to reduce radiation dose to as low as reasonably achievable (ALARA). [facility]: Dose Right [facility]: CareDose [facility]: Dose Right [facility]: Teradose 4D [facility]: CORD:USE Cord Blood Bank CONTRAST TYPE AND DOSE: contrast/concentration: Isovue 370 mg/ml; Total Contrast Delivered: 63.0 ml; Total Saline Delivered: 104.0 ml RENAL FUNCTION: Creatinine 0.73. RADIATION DOSE: 27.67 . LIMITATIONS: None. FINDINGS: LUNGS AND PLEURA: No consolidation, pleural effusion or pneumothorax. AORTA AND GREAT VESSELS: No thoracic aortic aneurysm. HEART: No pericardial effusion. PULMONARY ARTERIES: No emboli visualized in the main pulmonary arteries or the segmental branches. HILAR AND MEDIASTINAL STRUCTURES: No identified masses or abnormal nodes. HARDWARE: None in the chest. UPPER ABDOMEN: No significant findings. Limited exam. THYROID AND OTHER SOFT TISSUES: No masses. No adenopathy. BONES: No acute finding. 3D MIPS: Confirm above findings. IMPRESSION: No pulmonary emboli. TECHNICAL DOCUMENTATION: JOB ID: [id number] IN-64 Quality ID # [id number]: Final reports with documentation of one or more dose reduction techniques (e.g., Au tomated exposure control, adjustment of the mA and/or kV according to patient size, use of iterative reconstruction technique) 2010 [employer]- All Rights Reserved
[2016-12-30 04:43] VITALS: BP 109/62
== END 2016-12-30 04:42 | disposition home or self-care (01) ==
LOC: ER 20:59
DX: R07.81 Pleurodynia (principal); R00.0 Tachycardia, unspecified; R07.9 Chest pain, unspecified; R20.2 Paresthesia of skin; Z88.3 Allergy status to other anti-infective agents; Z88.6 Allergy status to analgesic agent; Z91.040 Latex allergy status
CPT/HCPCS: 36415; 71275; 80048; 85025; 93005; 93010; 99285

== ENCOUNTER 2017-01-09 17:03 | Emergency (ER) | payer MEDICAID ==
--- NOTE | 2017-01-09 17:15 | ER Document Report ---
ED Medical Screen (RME) - General Chief Complaint: Abdominal Pain Stated Complaint: SIDE PAIN Time Seen by Provider: 01/09/17 17:11 TRAVEL OUTSIDE OF THE [place] IN LAST 30 DAYS: No - HPI Notes: 01/09/17 17:14 Pain nausea vomiting no fevers no chills seen in by urgent care - Related Data Allergies/Adverse Reactions: azithromycin [From Zithromax Z-Mark] Allergy (Mild, Verified 01/09/17 17:07) rash adhesive [Adhesive] Allergy (Verified 01/09/17 17:07) codeine [Codeine] Allergy (Verified 01/09/17 17:07) ITCHING, HIVES latex [Latex] Allergy (Verified 01/09/17 17:07) morphine [Morphine] Allergy (Verified 01/09/17 17:07) ITCHING, HIVES Past Medical History - Past Medical History Cardiac Medical History: Denies: Hx Hypertension - KEN SYNDROME/murmur Pulmonary Medical History: Denies: Hx Asthma Renal/ Medical History: Denies: Hx Peritoneal Dialysis Musculoskeltal Medical History: Reports Hx Musculoskeletal Trauma Skin Medical History: Reports Hx Eczema Psychiatric Medical History: Reports: Hx Anxiety, Hx Attention Deficit Hyperactivity Disorder Past Surgical History: Reports: Hx Cholecystectomy, Hx Orthopedic Surgery - left knee, Hx Tonsillectomy - Immunizations Immunizations up to date: Yes Hx Diphtheria, Pertussis, Tetanus Vaccination: Yes Review of Systems - Review of Systems Gastrointestinal: Abdominal pain Physical Exam - Vital signs Vitals: Temp Pulse Resp BP Pulse Ox 98.5 F 70 14 114/53 L 98 01/09/17 17:07 01/09/17 17:07 01/09/17 17:07 01/09/17 17:07 01/09/17 17:07 - Notes Notes: no Pain upon jumping on her right leg Course - Re-evaluation Re-evalutation: 01/09/17 17:14 - Vital Signs Vital signs: Temp Pulse Resp BP Pulse Ox 98.5 F 70 14 114/53 L 98 01/09/17 17:07 01/09/17 17:07 01/09/17 17:07 01/09/17 17:07 01/09/17 17:07
[2017-01-09 17:50] LABS: ABSOLUTE BASOPHILS # (AUTO) 0.1 10^3/uL (0.0-0.2); ABSOLUTE EOSINOPHILS # (AUTO) 0.8 10^3/uL (0.0-0.6); ABSOLUTE LYMPHOCYTES (AUTO) 2.2 10^3/uL (0.5-4.7); ABSOLUTE MONOCYTES (AUTO) 0.6 10^3/uL (0.1-1.4); ABSOLUTE NEUT (AUTO) 4.3 10^3/uL (1.7-8.2); BASOPHILS % (AUTO) 1.2 % (0-2); EOSINOPHILS % (AUTO) 10.5 % (0-6); HEMATOCRIT 36.6 % (36.0-47.0); HEMOGLOBIN 11.9 g/dL (12.0-15.5); HGB HCT DIFFERENCE -0.9; LYMPHOCYTES % (AUTO) 27.1 % (13-45); MEAN CORPUSCULAR HEMOGLOBIN 29.4 pg (27.0-33.4); MEAN CORPUSCULAR HGB CONC 32.4 g/dL (32.0-36.0); MEAN CORPUSCULAR VOLUME 91 fl (80-97); MONOCYTES % (AUTO) 7.8 % (3-13); RED BLOOD COUNT 4.03 10^6/uL (3.72-5.28); RED CELL DISTRIBUTION WIDTH 12.9 % (11.5-14.0); SEGMENTED NEUTROPHILS % (AUTO) 53.4 % (42-78)
[2017-01-09 17:52] LABS: APPEARANCE,URINE SLIGHTLY-CLOUDY; BILIRUBIN,URINE NEGATIVE (NEGATIVE); GLUCOSE, URINE NEGATIVE (NEGATIVE); KETONES,URINE NEGATIVE (NEGATIVE); LEUKOCYTE ESTERASE,URINE TRACE (NEGATIVE); NITRITE,URINE NEGATIVE (NEGATIVE); PROTEIN,URINE 30 mg/dL (NEGATIVE); URINE SPECIFIC GRAVITY 1.033
[2017-01-09 18:00] LABS: BACTERIA,URINE TRACE /HPF; RBC,URINE 0-1 /HPF; WBC,URINE 0-1 /HPF
[2017-01-09 18:06] LABS: ALANINE AMINOTRANSFERASE 32 U/L (9-52); ALBUMIN 4.3 g/dL (3.5-5.0); ALKALINE PHOSPHATASE 83 U/L (38-126); ANION GAP 10 (5-19); ASPARTATE AMINO TRANSFERASE 18 U/L (14-36); BILIRUBIN,DIRECT 0.3 mg/dL (0.0-0.4); BILIRUBIN,TOTAL 0.6 mg/dL (0.2-1.3); BLOOD UREA NITROGEN 10 mg/dL (7-20); CALCIUM 9.6 mg/dL (8.4-10.2); CARBON DIOXIDE 28 mmol/L (22-30); CHLORIDE 106 mmol/L (98-107); CREATININE RESULT 0.89 mg/dL (0.52-1.25); GLUCOSE 71 mg/dL (75-110); LIPASE 82.5 U/L (23-300); POTASSIUM 3.7 mmol/L (3.6-5.0); SODIUM 143.8 mmol/L (137-145); TOTAL PROTEIN 7.1 g/dL (6.3-8.2)
--- NOTE | 2017-01-09 18:14 | ER Document Report ---
ED General - General Chief Complaint: Abdominal Pain Stated Complaint: SIDE PAIN Time Seen by Provider: 01/09/17 17:11 Mode of Arrival: Ambulatory Information source: Patient Notes: 21-year-old female presents with complaints of right lower quadrant abdominal pain. Patient denies any fevers or chills nausea vomiting or diarrhea. Patient notes she was seen in urgent care, concern for appy . TRAVEL OUTSIDE OF THE [place] IN LAST 30 DAYS: No - HPI Onset: Other - 3 days Onset/Duration: Persistent Quality of pain: Achy Severity: Mild Pain Level: 1 Associated symptoms: None Exacerbated by: Denies Relieved by: Denies Similar symptoms previously: Yes Recently seen / treated by doctor: Yes - Related Data Allergies/Adverse Reactions: azithromycin [From Zithromax Z-Mark] Allergy (Mild, Verified 01/09/17 17:07) rash adhesive [Adhesive] Allergy (Verified 01/09/17 17:07) codeine [Codeine] Allergy (Verified 01/09/17 17:07) ITCHING, HIVES latex [Latex] Allergy (Verified 01/09/17 17:07) morphine [Morphine] Allergy (Verified 01/09/17 17:07) ITCHING, HIVES Past Medical History - Social History Smoking Status: Never Smoker Cigarette use (# per day): No Chew tobacco use (# tins/day): No Smoking Education Provided: No Frequency of alcohol use: Rare Drug Abuse: None Family History: Reviewed & Not Pertinent, CVA Patient has suicidal ideation: No Patient has homicidal ideation: No - Past Medical History Cardiac Medical History: Denies: Hx Hypertension - KEN SYNDROME/murmur Pulmonary Medical History: Denies: Hx Asthma Renal/ Medical History: Denies: Hx Peritoneal Dialysis Musculoskeltal Medical History: Reports Hx Musculoskeletal Trauma Skin Medical History: Reports Hx Eczema Psychiatric Medical History: Reports: Hx Anxiety, Hx Attention Deficit Hyperactivity Disorder, Hx Depression - & anxiety Past Surgical History: Reports: Hx Cholecystectomy, Hx Orthopedic Surgery - left knee, Hx Tonsillectomy - Immunizations Immunizations up to date: Yes Hx Diphtheria, Pertussis, Tetanus Vaccination: Yes Review of Systems - Review of Systems Notes: REVIEW OF SYSTEMS: CONSTITUTIONAL : Denies fever, chills, or sweats. Denies recent illness. EENT: Denies eye, ear, throat, or mouth pain or symptoms. Denies nasal or sinus congestion or discharge. Denies throat, tongue, or mouth swelling or difficulty swallowing. CARDIOVASCULAR: Denies chest pain. Denies palpitations or racing or irregular heart beat. Denies ankle edema. RESPIRATORY: Denies cough, cold, or chest congestion. Denies shortness of breath, difficulty breathing, or wheezing. GASTROINTESTINAL: admits to abd pain RLQ . GENITOURINARY: Denies difficulty urinating, painful urination, burning, frequency, blood in urine, or discharge. FEMALE GENITOURINARY: Denies vaginal bleeding, heavy or abnormal periods, irregular periods. Denies vaginal discharge or odor. MUSCULOSKELETAL: Denies back or neck pain or stiffness. Denies joint pain or swelling. SKIN: Denies rash, lesions or sores. HEMATOLOGIC : Denies easy bruising or bleeding. LYMPHATIC: Denies swollen, enlarged glands. NEUROLOGICAL: Denies confusion or altered mental status. Denies passing out or loss of consciousness. Denies dizziness or lightheadedness. Denies headache. Denies weakness or paralysis or loss of use of either side. Denies problems with gait or speech. Denies sensory loss, numbness, or tingling. Denies seizures. PSYCHIATRIC: Denies anxiety or stress. Denies depression, suicidal ideation, or homicidal ideation. ALL OTHER SYSTEMS REVIEWED AND NEGATIVE. PHYSICAL EXAMINATION: GENERAL: Well-appearing, well-nourished and in no acute distress. HEAD: Atraumatic, normocephalic. EYES: Pupils equal round and reactive to light, extraocular movements intact, conjunctiva are normal. ENT: Nares patent, oropharynx clear without exudates. Moist mucous membranes. NECK: Normal range of motion, supple without lymphadenopathy LUNGS: Breath sounds clear to auscultation bilaterally and equal. No wheezes rales or rhonchi. HEART: Regular rate and rhythm without murmurs ABDOMEN: Soft, mildly tender in the RLQ no rebound or guarding Female : deferred Musculoskeletal: Normal range of motion, no pitting or edema. No cyanosis. NEUROLOGICAL: Cranial nerves grossly intact. Normal speech, normal gait. Normal sensory, motor exams PSYCH: Normal mood, normal affect. SKIN: Warm, Dry, normal turgor, no rashes or lesions noted. Dictation was performed using [employer] voice recognition software Physical Exam - Vital signs Vitals: Temp Pulse Resp BP Pulse Ox 98.5 F 70 14 114/53 L 98 01/09/17 17:07 01/09/17 17:07 01/09/17 17:07 01/09/17 17:07 01/09/17 17:07 Course - Re-evaluation Re-evalutation: 01/09/17 18:[address] abd pelvis for rule out appy, she wishes to have an u/s for ovary instead , pt understands this will not rule out an appy. 01/09/17 20:31 Ultrasound notes no acute abnormality, patient still defers on a CT, I explained risks benefits and she wishes ot watch and wait After performing a Medical Screening Examination, I estimate there is LOW risk for ACUTE APPENDICITIS, BOWEL OBSTRUCTION, ACUTE CHOLECYSTITIS, PERFORATED DIVERTICULITIS, INCARCERATED HERNIA, PANCREATITIS, PELVIC INFLAMMATORY DISEASE, PERFORATED ULCER, ECTOPIC , or TUBO-OVARIAN ABSCESS, thus I consider the discharge disposition reasonable. Also, there is no evidence or peritonitis , sepsis, or toxicity. I have reevaluated this patient multiple times and no significant life threatening changes are noted. The patient and I have discussed the diagnosis and risks, and we agree with discharging home with close follow-up with the understanding that symptoms and presentations can change. We also discussed returning to the Emergency Department immediately if new or worsening symptoms occur. We have discussed the symptoms which are most concerning (e.g., bloody stool, fever, changing or worsening pain, vomiting) that necessitate immediate return. - Vital Signs Vital signs: Temp Pulse Resp BP Pulse Ox 98.5 F 70 14 114/53 L 98 01/09/17 17:07 01/09/17 17:07 01/09/17 17:07 01/09/17 17:07 01/09/17 17:07 - Laboratory Result Diagrams: 01/09/17 17:40 01/09/17 17:40 Laboratory results interpreted by me: 01/09/17 01/09/17 01/09/17 17:40 17:40 17:40 Hgb 11.9 L Eosinophils % 10.5 H Absolute Eosinophils 0.8 H Glucose 71 L Urine Protein 30 H Urine Urobilinogen 2.0 H Ur Leukocyte Esterase TRACE H - Diagnostic Test Radiology reviewed: Image reviewed, Reports reviewed - No acute abnormality Discharge - Discharge Clinical Impression: RLQ abdominal pain Condition: Stable Disposition: HOME, SELF-CARE Instructions: Abdominal Pain ([facility]) Referrals: SHIN CLARK NP-C [Primary Care Provider] - Follow up tomorrow
[2017-01-09] MEDS ORDERED: ACETAMINOPHEN 325 MG TABLET PO ONE (19:04)
--- NOTE | 2017-01-09 20:13 | RADIOLOGY REPORT (SQ) ---
EXAM DESCRIPTION: U/S NON OB PEL TV W/DOPPLER COMPLETED DATE/TIME: 01/09/2017 8:04 pm REASON FOR STUDY: RLQ pain COMPARISON: 09/29/2016 TECHNIQUE: Dynamic and static grayscale images acquired of the pelvis via transvaginal approach and recorded on PACS. Additional selected color Doppler and spectral images recorded. LIMITATIONS: None. FINDINGS: UTERUS: Contour normal. No mass. ENDOMETRIAL STRIPE: No focal or generalized thickening. No masses. CERVIX: No nabothian cysts. RIGHT OVARY: No abnormal masses. RIGHT OVARY DOPPLER: Normal arterial vascular flow without evidence for torsion. LEFT OVARY: No abnormal masses. LEFT OVARY DOPPLER: Normal arterial vascular flow without evidence for torsion. FREE FLUID: Small amount of physiologic free fluid. OTHER: No other significant finding. MEASUREMENTS: UTERUS: 6.3 x 4.3 x 3.2 cm ENDOMETRIAL STRIPE: 0.2 cm RIGHT OVARY: 2.7 x 1.7 x 1.4 cm LEFT OVARY: 2.6 x 1.9 x 1.8 cm IMPRESSION: NORMAL TRANSVAGINAL PELVIC ULTRASOUND. TECHNICAL DOCUMENTATION: JOB ID: [id number]- All Rights Reserved
[2017-01-09 20:56] VITALS: BP 124/77
== END 2017-01-09 20:40 | disposition home or self-care (01) ==
LOC: ER 17:03
DX: R10.31 Right lower quadrant pain (principal)
CPT/HCPCS: 36415; 76830; 80053; 81001; 83690; 84702; 85025; 93976; 99284

== ENCOUNTER 2017-01-15 17:58 | Emergency (ER) | payer MEDICAID ==
--- NOTE | 2017-01-15 19:17 | ER Document Report ---
ED Medical Screen (RME) - General Mode of Arrival: Ambulatory Information source: Patient TRAVEL OUTSIDE OF THE [place] IN LAST 30 DAYS: No - HPI Patient complains to provider of: Abdominal Pain Onset: Last week Associated Symptoms: Other - see notes above <ZE TRUJILLO - Last Filed: 01/15/17 20:15> <DAYAN CRUM - Last Filed: 01/15/17 21:13> - General Chief Complaint: Abdominal Pain Stated Complaint: VAGINAL IRRITATION Time Seen by Provider: 01/15/17 19:06 Notes: 21 year old female presents to the ED complaining of RLQ abdominal pain and nausea that started last week. Patient was seen by UrgentCare last week and was told to come to the ED for possible appendicitis. Work up of the patient was benign, but she was told that she is . Patient has taken 4 home tests which have resulted in a 'slightly positive' reading and was called by a nurse from [facility] 2 days ago stating that the patient had an elevated hCG level. Patient is also concerned over genital warts, but denies seeing any lesions on herself, but states her boyfriend has cauliflower like lesions. ( ZE TRUJILLO) - Related Data Allergies/Adverse Reactions: azithromycin [From Zithromax Z-Mark] Allergy (Mild, Verified 01/09/17 17:07) rash adhesive [Adhesive] Allergy (Verified 01/09/17 17:07) codeine [Codeine] Allergy (Verified 01/09/17 17:07) ITCHING, HIVES latex [Latex] Allergy (Verified 01/09/17 17:07) morphine [Morphine] Allergy (Verified 01/09/17 17:07) ITCHING, HIVES Past Medical History - General Information source: Patient - Past Medical History Cardiac Medical History: Denies: Hx Hypertension - KEN SYNDROME/murmur Pulmonary Medical History: Denies: Hx Asthma Renal/ Medical History: Denies: Hx Peritoneal Dialysis Musculoskeltal Medical History: Reports Hx Musculoskeletal Trauma Skin Medical History: Reports Hx Eczema Psychiatric Medical History: Reports: Hx Anxiety, Hx Attention Deficit Hyperactivity Disorder, Hx Depression - & anxiety Past Surgical History: Reports: Hx Cholecystectomy, Hx Orthopedic Surgery - left knee, Hx Tonsillectomy - Immunizations Immunizations up to date: Yes Hx Diphtheria, Pertussis, Tetanus Vaccination: Yes <ZE TRUJILLO - Last Filed: 01/15/17 20:15> Review of Systems - Review of Systems Constitutional: No symptoms reported EENT: No symptoms reported Cardiovascular: No symptoms reported Respiratory: No symptoms reported Gastrointestinal: See HPI, Abdominal pain, Nausea Genitourinary: No symptoms reported Female Genitourinary: No symptoms reported Musculoskeletal: No symptoms reported Skin: No symptoms reported Hematologic/Lymphatic: No symptoms reported Neurological/Psychological: No symptoms reported -: Yes All other systems reviewed and negative <ZE TRUJILLO - Last Filed: 01/15/17 20:15> Physical Exam - General General appearance: Alert In distress: None - Respiratory Respiratory status: No respiratory distress - Abdominal Inspection: Normal Distension: No distension Bowel sounds: Normal Tenderness: Tender - Transient RLQ tenderness to palpation. Gas bubble was palpated to the RLQ., Other - no rigidity. No: Guarding, Rebound <ZE TRUJILLO - Last Filed: 01/15/17 20:15> Course - Laboratory Result Diagrams: 01/15/17 19:42 01/15/17 19:42 <ZE TRUJILLO - Last Filed: 01/15/17 20:15> - Laboratory Result Diagrams: 01/15/17 19:42 01/15/17 19:42 <DAYAN CRUM - Last Filed: 01/15/17 21:13> - Vital Signs Vital signs: Temp Pulse Resp BP Pulse Ox 98.2 F 78 15 114/46 L 100 01/15/17 18:33 01/15/17 18:33 01/15/17 18:33 01/15/17 18:33 01/15/17 18:33 - Laboratory Laboratory results interpreted by me: 01/15/17 19:42 Glucose 67 L Scribe Documentation - Scribe Written by Luis Felipe:: Luis Felipe Greenberg, 01/15/[id number] acting as scribe for :: Hollie <ZE TRUJILLO - Last Filed: 01/15/17 20:15>
[2017-01-15 20:28] LABS: ABSOLUTE BASOPHILS # (AUTO) 0.1 10^3/uL (0.0-0.2); ABSOLUTE EOSINOPHILS # (AUTO) 0.3 10^3/uL (0.0-0.6); ABSOLUTE LYMPHOCYTES (AUTO) 2.1 10^3/uL (0.5-4.7); ABSOLUTE MONOCYTES (AUTO) 0.7 10^3/uL (0.1-1.4); ABSOLUTE NEUT (AUTO) 4.9 10^3/uL (1.7-8.2); BASOPHILS % (AUTO) 1.1 % (0-2); EOSINOPHILS % (AUTO) 4.3 % (0-6); HEMATOCRIT 39.2 % (36.0-47.0); HEMOGLOBIN 12.7 g/dL (12.0-15.5); HGB HCT DIFFERENCE -1.1; LYMPHOCYTES % (AUTO) 26.5 % (13-45); MEAN CORPUSCULAR HEMOGLOBIN 29.3 pg (27.0-33.4); MEAN CORPUSCULAR HGB CONC 32.3 g/dL (32.0-36.0); MEAN CORPUSCULAR VOLUME 91 fl (80-97); MONOCYTES % (AUTO) 8.1 % (3-13); RED BLOOD COUNT 4.33 10^6/uL (3.72-5.28); RED CELL DISTRIBUTION WIDTH 12.8 % (11.5-14.0); WHITE BLOOD COUNT 8.1 10^3/uL (4.0-10.5)
[2017-01-15 20:41] LABS: ALANINE AMINOTRANSFERASE 39 U/L (9-52); ALBUMIN 4.7 g/dL (3.5-5.0); ALKALINE PHOSPHATASE 92 U/L (38-126); ANION GAP 13 (5-19); ASPARTATE AMINO TRANSFERASE 24 U/L (14-36); BILIRUBIN,DIRECT 0.3 mg/dL (0.0-0.4); BILIRUBIN,TOTAL 0.7 mg/dL (0.2-1.3); BLOOD UREA NITROGEN 9 mg/dL (7-20); CALCIUM 9.3 mg/dL (8.4-10.2); CARBON DIOXIDE 27 mmol/L (22-30); CHLORIDE 104 mmol/L (98-107); CREATININE RESULT 0.83 mg/dL (0.52-1.25); GLUCOSE 67 mg/dL (75-110); POTASSIUM 3.8 mmol/L (3.6-5.0); SODIUM 144.3 mmol/L (137-145); TOTAL PROTEIN 7.4 g/dL (6.3-8.2)
[2017-01-15] MEDS ORDERED: PROMETHAZINE HCL 25 MG TABLET PO ONE (21:33)
--- NOTE | 2017-01-15 21:35 | ER Document Report ---
ED GI/ - General Chief Complaint: Abdominal Pain Stated Complaint: VAGINAL IRRITATION Time Seen by Provider: 01/15/17 19:06 Mode of Arrival: Ambulatory Notes: Patient is a 21-year-old female that comes emergency department for chief complaint of intermittent right lower quadrant pain over the past week, she states she was evaluated for this once before already, she states that in addition to this she has occasional vaginal discharge, she states that she has some nausea but no vomiting, she denies fever, she denies flank pain, she denies dysuria. She denies any rash. She takes no daily medications, past medical history of cholecystectomy and ovarian cysts. TRAVEL OUTSIDE OF THE [place] IN LAST 30 DAYS: No - Related Data Allergies/Adverse Reactions: azithromycin [From Zithromax Z-Mark] Allergy (Mild, Verified 01/09/17 17:07) rash adhesive [Adhesive] Allergy (Verified 01/09/17 17:07) codeine [Codeine] Allergy (Verified 01/09/17 17:07) ITCHING, HIVES latex [Latex] Allergy (Verified 01/09/17 17:07) morphine [Morphine] Allergy (Verified 01/09/17 17:07) ITCHING, HIVES Past Medical History - General Information source: Patient - Social History Smoking Status: Never Smoker Frequency of alcohol use: Occasional Drug Abuse: None Lives with: Family Family History: Reviewed & Not Pertinent, CVA Patient has suicidal ideation: No Patient has homicidal ideation: No - Past Medical History Cardiac Medical History: Denies: Hx Hypertension - KEN SYNDROME/murmur Pulmonary Medical History: Denies: Hx Asthma Renal/ Medical History: Denies: Hx Peritoneal Dialysis Musculoskeltal Medical History: Reports Hx Musculoskeletal Trauma Skin Medical History: Reports Hx Eczema Psychiatric Medical History: Reports: Hx Anxiety, Hx Attention Deficit Hyperactivity Disorder, Hx Depression - & anxiety Past Surgical History: Reports: Hx Cholecystectomy, Hx Orthopedic Surgery - left knee, Hx Tonsillectomy - Immunizations Immunizations up to date: Yes Hx Diphtheria, Pertussis, Tetanus Vaccination: Yes Review of Systems - Review of Systems Constitutional: No symptoms reported EENT: No symptoms reported Cardiovascular: No symptoms reported Respiratory: No symptoms reported Gastrointestinal: See HPI Genitourinary: See HPI Female Genitourinary: See HPI Musculoskeletal: No symptoms reported Skin: No symptoms reported Hematologic/Lymphatic: No symptoms reported Neurological/Psychological: No symptoms reported Physical Exam - Vital signs Vitals: Temp Pulse Resp BP Pulse Ox 98.2 F 78 15 114/46 L 100 01/15/17 18:33 01/15/17 18:33 01/15/17 18:33 01/15/17 18:33 01/15/17 18:33 Interpretation: Normal - General General appearance: Appears well, Alert In distress: None - HEENT Head: Normocephalic, Atraumatic Eyes: Normal Conjunctiva: Normal Extraocular movements intact: Yes Eyelashes: Normal Pupils: PERRL Nasal: Normal Mouth/Lips: Normal Mucous membranes: Normal Pharynx: Normal Neck: Normal - Respiratory Respiratory status: No respiratory distress Chest status: Nontender Breath sounds: Normal. No: Decreased air movement, Wheezing Chest palpation: Normal - Cardiovascular Rhythm: Regular Heart sounds: Normal auscultation Murmur: No - Abdominal Inspection: Normal Distension: No distension Bowel sounds: Normal Tenderness: Nontender - Completely nontender abdomen, no guarding, no tenderness even in the right lower quadrant, no rebound tenderness, no rigidity or distention. No: Tender Organomegaly: No organomegaly - Genitourinary External exam: Normal. No: Lesions Speculum exam: Cervix closed, Vaginal discharge - Moderately large amount of whitish vaginal discharge, slightly irritated cervix in appearance, no lesions, no other abnormalities noted Vaginal bleeding: None Bimanuel exam: No: Cervical motion tender - Back Back: Normal, Nontender. No: Tender, CVA tenderness - Extremities General upper extremity: Normal inspection, Nontender, Normal ROM, Normal strength General lower extremity: Normal inspection, Nontender, Normal ROM, Normal strength - Neurological Neuro grossly intact: Yes Cognition: Normal Orientation: AAOx4 Edda Coma Scale Eye Opening: Spontaneous [place] Coma Scale Verbal: Oriented Edda Coma Scale Motor: Obeys Commands Edda Coma Scale Total: 15 Speech: Normal Motor strength normal: LUE, RUE, LLE, RLE Sensory: Normal - Psychological Associated symptoms: Normal affect, Normal mood - Skin Skin Temperature: Warm Skin Moisture: Dry Skin Color: Normal Course - Re-evaluation Re-evalutation: Patient just had an ultrasound that showed no cysts or abnormalities. Patient with soft abdomen, CBC and chemistry reviewed, unremarkable except for some hypoglycemia, will give nourishment. Physical examination unremarkable except for vaginal exam showing moderately large amount of vaginal discharge, no cervical motion tenderness, no fever. Trichomonas, gonorrhea, chlamydia all negative. 4+ Bacteria and white blood cells on wet mount, treating for bacterial vaginosis. Patient telling me that her has genital warts, advised her that she probably has HPV exposure as a result, however patient has no warts or rash on exam, recommended persistent follow-up with primary care/PHYSIOLOGIST for Pap smears and general monitoring/management. Patient states understanding and agreement. Discussed treatment, return precautions, patient verbalizes understanding. - Vital Signs Vital signs: Temp Pulse Resp BP Pulse Ox 97.6 F 61 16 114/76 100 01/15/17 22:51 01/15/17 22:51 01/15/17 22:51 01/15/17 22:51 01/15/17 22:51 - Laboratory Result Diagrams: 01/15/17 19:42 01/15/17 19:42 Laboratory results interpreted by me: 01/15/17 19:42 Glucose 67 L Discharge - Discharge Clinical Impression: Vaginal discharge, Nausea Abdominal pain Qualifiers: Abdominal location: generalized Qualified Code(s): R10.84 - Generalized abdominal pain Condition: Stable Disposition: HOME, SELF-CARE Additional Instructions: Examination and workup shows bacterial vaginosis, no other concerning abnormalities are found. Recent ultrasound was normal. Take Zofran if needed for nausea, take the prescribed medication for bacterial vaginosis to completion. Follow-up with primary care. Return to emergency department for any concerning or worsening symptoms including return or worsening pain, fever, vomiting, or any other concerning symptoms. Prescriptions: Metronidazole [Metrogel-Vaginal] 70 gm VG ASDIR #1 gel.w.appl Ondansetron [Zofran Odt 4 mg Tablet] 1 - 2 tab PO Q4H PRN #12 tab.rapdis PRN Reason: For Nausea/Vomiting
[2017-01-15 21:40] LABS: CHLAM PCR NOT DETECTED (NOT DETECT)
[2017-01-15] MEDS ORDERED: ONDANSETRON ODT 4 MG TAB (6 TAB/DSPK) PO PRN (22:31)
[2017-01-15 22:53] VITALS: BP 114/76
== END 2017-01-15 22:53 | disposition home or self-care (01) ==
LOC: ER 17:58
DX: N76.0 Acute vaginitis (principal); B96.89 Other specified bacterial agents as the cause of diseases classified elsewhere; R10.84 Generalized abdominal pain; R11.0 Nausea; E16.2 Hypoglycemia, unspecified; Z90.49 Acquired absence of other specified parts of digestive tract; Z87.42 Personal history of other diseases of the female genital tract; Z88.1 Allergy status to other antibiotic agents; Z91.048 Other nonmedicinal substance allergy status; Z88.5 Allergy status to narcotic agent; Z91.040 Latex allergy status; Z20.2 Contact with and (suspected) exposure to infections with a predominantly sexual mode of transmission
CPT/HCPCS: 36415; 80053; 84703; 85025; 87210; 87491; 87591; 99284

== ENCOUNTER 2017-02-17 09:03 | Emergency (ER) | payer MEDICAID ==
[2017-02-17 09:12] VITALS: BP 123/74
[2017-02-17 10:22] LABS: APPEARANCE,URINE SLIGHTLY-CLOUDY; BILIRUBIN,URINE NEGATIVE (NEGATIVE); GLUCOSE, URINE NEGATIVE (NEGATIVE); KETONES,URINE NEGATIVE (NEGATIVE); LEUKOCYTE ESTERASE,URINE NEGATIVE (NEGATIVE); NITRITE,URINE NEGATIVE (NEGATIVE); PROTEIN,URINE NEGATIVE (NEGATIVE); URINE SPECIFIC GRAVITY 1.025
[2017-02-17 10:48] LABS: ABSOLUTE EOSINOPHILS # (AUTO) 0.2 10^3/uL (0.0-0.6); ABSOLUTE LYMPHOCYTES (AUTO) 1.7 10^3/uL (0.5-4.7); ABSOLUTE MONOCYTES (AUTO) 0.6 10^3/uL (0.1-1.4); BASOPHILS % (AUTO) 0.7 % (0-2); EOSINOPHILS % (AUTO) 2.7 % (0-6); HEMATOCRIT 36.9 % (36.0-47.0); HEMOGLOBIN 12.6 g/dL (12.0-15.5); HGB HCT DIFFERENCE 0.9; LYMPHOCYTES % (AUTO) 26.1 % (13-45); MEAN CORPUSCULAR HEMOGLOBIN 30.8 pg (27.0-33.4); MEAN CORPUSCULAR HGB CONC 34.2 g/dL (32.0-36.0); MEAN CORPUSCULAR VOLUME 90 fl (80-97); MONOCYTES % (AUTO) 9.5 % (3-13); RED CELL DISTRIBUTION WIDTH 12.8 % (11.5-14.0); WHITE BLOOD COUNT 6.5 10^3/uL (4.0-10.5)
--- NOTE | 2017-02-17 10:50 | ER Document Report ---
ED Medical Screen (RME) - General Chief Complaint: Abdominal Pain Stated Complaint: ABDOMINAL PAIN Time Seen by Provider: 02/17/17 09:30 Notes: Patient reports several days of suprapubic abdominal pain. She denies vaginal bleeding or discharge. No pain with urination. Some nausea. TRAVEL OUTSIDE OF THE [place] IN LAST 30 DAYS: No - Related Data Allergies/Adverse Reactions: azithromycin [From Zithromax Z-Mark] Allergy (Mild, Verified 02/17/17 09:12) rash adhesive [Adhesive] Allergy (Verified 02/17/17 09:12) codeine [Codeine] Allergy (Verified 02/17/17 09:12) ITCHING, HIVES latex [Latex] Allergy (Verified 02/17/17 09:12) morphine [Morphine] Allergy (Verified 02/17/17 09:12) ITCHING, HIVES Past Medical History - Social History Chew tobacco use (# tins/day): No Frequency of alcohol use: Occasional Drug Abuse: None - Past Medical History Cardiac Medical History: Denies: Hx Hypertension - KEN SYNDROME/murmur Pulmonary Medical History: Denies: Hx Asthma Renal/ Medical History: Denies: Hx Peritoneal Dialysis Musculoskeltal Medical History: Reports Hx Musculoskeletal Trauma Skin Medical History: Reports Hx Eczema Psychiatric Medical History: Reports: Hx Anxiety, Hx Attention Deficit Hyperactivity Disorder, Hx Depression - & anxiety Past Surgical History: Reports: Hx Cholecystectomy, Hx Orthopedic Surgery - left knee, Hx Tonsillectomy - Immunizations Immunizations up to date: Yes Hx Diphtheria, Pertussis, Tetanus Vaccination: Yes Physical Exam - Vital signs Vitals: Temp Pulse Resp BP Pulse Ox 97.9 F 76 16 123/74 100 02/17/17 09:09 02/17/17 09:09 02/17/17 09:09 02/17/17 09:09 02/17/17 09:09 Course - Vital Signs Vital signs: Temp Pulse Resp BP Pulse Ox 97.9 F 76 16 123/74 100 02/17/17 09:09 02/17/17 09:09 02/17/17 09:09 02/17/17 09:09 02/17/17 09:09 - Laboratory Result Diagrams: 02/17/17 10:33 02/17/17 10:33 Laboratory results interpreted by me: 02/17/17 10:00 Urine Urobilinogen 2.0 H
[2017-02-17 10:58] LABS: ALANINE AMINOTRANSFERASE 29 U/L (9-52); ALBUMIN 4.4 g/dL (3.5-5.0); ALKALINE PHOSPHATASE 87 U/L (38-126); ANION GAP 10 (5-19); ASPARTATE AMINO TRANSFERASE 16 U/L (14-36); BILIRUBIN,DIRECT 0.2 mg/dL (0.0-0.4); BILIRUBIN,TOTAL 0.8 mg/dL (0.2-1.3); BLOOD UREA NITROGEN 7 mg/dL (7-20); CARBON DIOXIDE 27 mmol/L (22-30); CHLORIDE 106 mmol/L (98-107); CREATININE RESULT 0.78 mg/dL (0.52-1.25); GLUCOSE 71 mg/dL (75-110); POTASSIUM 4.6 mmol/L (3.6-5.0)
--- NOTE | 2017-02-17 12:47 | ER Document Report ---
ED GI/ - General Chief Complaint: Abdominal Pain Stated Complaint: ABDOMINAL PAIN Time Seen by Provider: 02/17/17 09:30 Mode of Arrival: Ambulatory Information source: Patient Notes: 21-year-old female presents to ED for suprapubic abdominal pain with vaginal discharge and some nausea. Denies any pain with urination TRAVEL OUTSIDE OF THE [place] IN LAST 30 DAYS: No - HPI Patient complains to provider of: Pelvic pain, Vaginal discharge Onset: Other - 4 days Timing/Duration: Intermittent Quality of pain: Cramping Severity at maximum: Moderate Severity in ED: Moderate Pain Level: 4 Location: Pelvis Vaginal bleeding (Compared to normal period): None Sexual history: Active Associated symptoms: Nausea, Other - Pain Exacerbated by: Denies Relieved by: Denies Similar symptoms previously: No Recently seen / treated by doctor: No - Related Data Allergies/Adverse Reactions: azithromycin [From Zithromax Z-Mark] Allergy (Mild, Verified 02/17/17 09:12) rash adhesive [Adhesive] Allergy (Verified 02/17/17 09:12) codeine [Codeine] Allergy (Verified 02/17/17 09:12) ITCHING, HIVES latex [Latex] Allergy (Verified 02/17/17 09:12) morphine [Morphine] Allergy (Verified 02/17/17 09:12) ITCHING, HIVES Past Medical History - General Information source: Patient - Social History Smoking Status: Never Smoker Cigarette use (# per day): No Chew tobacco use (# tins/day): No Smoking Education Provided: No Frequency of alcohol use: Occasional Drug Abuse: None Lives with: Family Family History: Reviewed & Not Pertinent, CVA Patient has suicidal ideation: No Patient has homicidal ideation: No - Past Medical History Cardiac Medical History: Denies: Hx Hypertension - KEN SYNDROME/murmur Pulmonary Medical History: Reports: None EENT Medical History: Reports: None Neurological Medical History: Reports: None Endocrine Medical History: Reports: None Renal/ Medical History: Reports: None GI Medical History: Reports: None Musculoskeltal Medical History: Reports Hx Musculoskeletal Trauma Skin Medical History: Reports Hx Eczema Psychiatric Medical History: Reports: Hx Anxiety, Hx Attention Deficit Hyperactivity Disorder, Hx Depression - & anxiety Traumatic Medical History: Reports: None Infectious Medical History: Reports: None Past Surgical History: Reports: Hx Cholecystectomy, Hx Orthopedic Surgery - left knee, Hx Tonsillectomy - Immunizations Immunizations up to date: Yes Hx Diphtheria, Pertussis, Tetanus Vaccination: Yes Review of Systems - Review of Systems Constitutional: No symptoms reported EENT: No symptoms reported Cardiovascular: No symptoms reported Respiratory: No symptoms reported Gastrointestinal: No symptoms reported Genitourinary: No symptoms reported Female Genitourinary: Other - Pain Musculoskeletal: No symptoms reported Skin: No symptoms reported Hematologic/Lymphatic: No symptoms reported Neurological/Psychological: No symptoms reported -: Yes All other systems reviewed and negative Physical Exam - Vital signs Vitals: Temp Pulse Resp BP Pulse Ox 97.9 F 76 16 123/74 100 02/17/17 09:09 02/17/17 09:09 02/17/17 09:09 02/17/17 09:09 02/17/17 09:09 Interpretation: Normal - General General appearance: Appears well, Alert - HEENT Head: Normocephalic, Atraumatic Eyes: Normal Pupils: PERRL - Respiratory Respiratory status: No respiratory distress Chest status: Nontender Breath sounds: Normal Chest palpation: Normal - Cardiovascular Rhythm: Regular Heart sounds: Normal auscultation Murmur: No - Abdominal Inspection: Normal Distension: No distension Bowel sounds: Normal Tenderness: Nontender Organomegaly: No organomegaly - Genitourinary External exam: Normal Speculum exam: Normal Vaginal bleeding: None Bimanuel exam: Cervical motion tender, Adnexal tenderness - Back Back: Normal, Nontender - Extremities General upper extremity: Normal inspection, Nontender, Normal color, Normal ROM , Normal temperature General lower extremity: Normal inspection, Nontender, Normal color, Normal ROM , Normal temperature, Normal weight bearing. No: Esequiel's sign - Neurological Neuro grossly intact: Yes Cognition: Normal Orientation: AAOx4 [place] Coma Scale Eye Opening: Spontaneous [place] Coma Scale Verbal: Oriented [place] Coma Scale Motor: Obeys Commands [place] Coma Scale Total: 15 Speech: Normal Motor strength normal: LUE, RUE, LLE, RLE Sensory: Normal - Psychological Associated symptoms: Normal affect, Normal mood - Skin Skin Temperature: Warm Skin Moisture: Dry Skin Color: Normal Course - Re-evaluation Re-evalutation: 02/17/17 21:22 Labs and ultrasound discussed with patient patient discharged home to follow-up with her primary doctor and [employer] - Vital Signs Vital signs: Temp Pulse Resp BP Pulse Ox 97.9 F 76 16 123/74 100 08/02/17 09:09 02/17/17 09:09 02/17/17 09:09 02/17/17 09:09 02/17/17 09:09 - Laboratory Result Diagrams: 02/17/17 10:33 02/17/17 10:33 Laboratory results interpreted by me: 02/17/17 02/17/17 10:00 10:33 Glucose 71 L Urine Urobilinogen 2.0 H - Diagnostic Test Radiology reviewed: Image reviewed, Reports reviewed Discharge - Discharge Clinical Impression: Ovarian cyst Condition: Stable Disposition: HOME, SELF-CARE Additional Instructions: Ovarian Cyst Your examination shows the presence of an ovarian cyst. This is a ball of fluid attached to the ovary. Ovarian cysts in women of child-bearing age are usually innocent. However, the cyst may cause pain when it grows or bursts. An innocent ovarian cyst will usually go away by itself. When the cyst becomes painful, you should rest. Pain medication may be required. Some women find a hot water bottle soothing. The pain usually resolves within one or two days. After menopause, an ovarian cyst may mean a tumor, and requires more aggressive evaluation -- usually surgery is recommended to remove or biopsy the cyst. A very large cyst requires evaluation at any age. Most cysts (even the innocent ones) require follow-up examination. Call the doctor or return at any time if the pain increases significantly, if you become faint, or if you experience vaginal bleeding. USE OF [id number] IBUPROFEN: Ibuprofen (Advil, Nuprin, Medipren, Motrin IB) is a medication for fever and pain control. In addition, it has anti- inflammatory effects which may be beneficial, especially in the treatment of injuries. It's best to take ibuprofen with food. Persons with ulcer disease or allergy to aspirin should notify their physician of this before taking ibuprofen. Ibuprofen can be given every four to six hours, for a total of four doses daily. Age Pain or fever dose Antiinflammatory dose 6-8 yr 200 mg (1 tab) 200 mg (1 tab) 9-11 yr 200 mg (1 tab) 200-400 mg (1-2 tab) 11-14 yr 200-400 mg (1-2 tab) 400 mg (2 tab) 15-adult 400 mg (2 tab) 600 mg (3 tab) FOLLOW-UP CARE: If you have been referred to a physician for follow-up care, call the physician s office for an appointment as you were instructed or within the next two days. If you experience worsening or a significant change in your symptoms, notify the physician immediately or return to the Emergency Department at any time for re-evaluation. Referrals: SHIN CLARK NP-C [Primary Care Provider] - Follow up as needed
--- NOTE | 2017-02-17 13:12 | RADIOLOGY REPORT (SQ) ---
EXAM DESCRIPTION: U/S NON-OB PELVIS TV W/O DOP COMPLETED DATE/TIME: 02/17/2017 1:02 pm REASON FOR STUDY: pelvic pain COMPARISON: 01/09/2017 TECHNIQUE: Dynamic and static grayscale images acquired of the pelvis via transvaginal approach and recorded on PACS. Additional selected color Doppler and spectral images recorded. LIMITATIONS: None. FINDINGS: UTERUS: Contour normal. No mass. ENDOMETRIAL STRIPE: No focal or generalized thickening. No masses. CERVIX: No nabothian cysts. RIGHT OVARY: No abnormal masses. Simple cyst noted measuring 1.9 x 1.7 x 1.4 cm RIGHT OVARY DOPPLER: Normal arterial vascular flow without evidence for torsion. LEFT OVARY: No abnormal masses. LEFT OVARY DOPPLER: Normal arterial vascular flow without evidence for torsion. FREE FLUID: Small amount of free fluid noted in the posterior cul-de-sac. OTHER: No other significant finding. MEASUREMENTS: UTERUS: In 7.4 x 5.4 x 4.0 cm ENDOMETRIAL STRIPE: 9 mm RIGHT OVARY: 2.7 x 2.3 x 1.9 cm LEFT OVARY: 2.6 x 1.8 x 1.8 Cm IMPRESSION: Simple right ovarian cyst. Small amount of free fluid within the pelvis, a normal findi ng for menstruating female. No other significant abnormality identified. COMMENT: Followup of asymptomatic benign ovarian cysts detected by ultrasound in PREMENOPAUSAL erick ents Simple cyst: *? 5 cm: no followup *> 5 and ? 7 cm: yearly followup ultrasound *> 7 cm: further imaging (MRI) or surgical followup Hemorrhagic cyst *? 5 cm: no followup *> 5 cm: 6-12 week followup ultrasound to ensure resolution Endometrioma *Initial followup ultrasound 6-12 weeks, then yearly if not surgically removed Dermoid *Yearly followup ultrasound if not surgically removed Note: If cyst is clinically symptomatic or otherwise concerning, other followup may be warranted. Based on recommendations of the Society for Radiologists in Ultrasound Consensus Conference Statement 2010 on management of asymptomatic ovarian and other adnexal cysts imaged at ultrasound. TECHNICAL DOCUMENTATION: JOB ID: [id number] [employer]- All Rights Reserved
[2017-02-17 13:24] LABS: CHLAM PCR NOT DETECTED (NOT DETECT)
== END 2017-02-17 13:59 | disposition home or self-care (01) ==
LOC: ER 09:03
DX: N83.291 Other ovarian cyst, right side (principal); R11.0 Nausea; N89.8 Other specified noninflammatory disorders of vagina; R10.2 Pelvic and perineal pain; Z88.1 Allergy status to other antibiotic agents; Z91.048 Other nonmedicinal substance allergy status; Z88.5 Allergy status to narcotic agent; Z91.040 Latex allergy status
CPT/HCPCS: 36415; 76830; 80053; 81001; 81025; 84703; 85025; 87210; 87491; 87591; 99284

== ENCOUNTER 2017-02-19 19:25 | Emergency (ER) | payer MEDICAID ==
[2017-02-19] MEDS ORDERED: DIPHENHYDRAMINE HCL 50 MG/ML VIAL IV ONE (20:34)
[2017-02-19] MEDS ORDERED: PROCHLORPERAZINE EDISYLATE INJ 10 MG/2 ML VIAL IV ONE (20:34)
[2017-02-19] MEDS ORDERED: KETOROLAC TROMETHAMINE INJ/PF 30 MG/1 ML SDV IV ONE (20:34)
[2017-02-19] MEDS ORDERED: LORAZEPAM INJ 2 MG/1 ML VIAL IV ONE (20:34)
[2017-02-19] MEDS ORDERED: NORMAL SALINE 1000 ML 1,000 ML IV ONE (20:35)
--- NOTE | 2017-02-19 20:39 | ER Document Report ---
ED General - General Chief Complaint: Chest Pain Stated Complaint: ABDOMINAL PAIN Time Seen by Provider: 02/19/17 20:06 Notes: Patient is a 21-year-old female with past medical history of pseudoseizures, Ken disease, who presents after having multiple near syncopal or syncopal episode at work and presents stating that she is unable to move her bilateral upper extremities. She does also complain of an associated dull, throbbing headache. States since arriving the emergency room she has also developed a constant, stabbing sensation over her left chest without associated shortness of breath. No use of estrogen. No cardiac history or history of DVT or pulmonary embolus. States her symptoms progressively worse while at work. Nothing improves or worsens her symptoms. Has a history of similar episodes in the past. She has not seen a primary care doctor regarding today's concerns. Denies any new or recent medication changes. Does admit to significant anxiety. TRAVEL OUTSIDE OF THE [place] IN LAST 30 DAYS: No - Related Data Allergies/Adverse Reactions: azithromycin [From Zithromax Z-Mark] Allergy (Mild, Verified 02/19/17 19:57) rash adhesive [Adhesive] Allergy (Verified 02/19/17 19:57) codeine [Codeine] Allergy (Verified 02/19/17 19:57) ITCHING, HIVES latex [Latex] Allergy (Verified 02/19/17 19:57) morphine [Morphine] Allergy (Verified 02/19/17 19:57) ITCHING, HIVES Past Medical History - General Information source: Patient - Social History Smoking Status: Never Smoker Frequency of alcohol use: None Drug Abuse: None Lives with: Spouse/Significant other Family History: Reviewed & Not Pertinent, CVA Patient has suicidal ideation: No Patient has homicidal ideation: No - Past Medical History Cardiac Medical History: Denies: Hx Hypertension - KEN SYNDROME/murmur Pulmonary Medical History: Denies: Hx Asthma Renal/ Medical History: Denies: Hx Peritoneal Dialysis Musculoskeltal Medical History: Reports Hx Musculoskeletal Trauma Skin Medical History: Reports Hx Eczema Psychiatric Medical History: Reports: Hx Anxiety, Hx Attention Deficit Hyperactivity Disorder, Hx Depression - & anxiety Past Surgical History: Reports: Hx Cholecystectomy, Hx Orthopedic Surgery - left knee, Hx Tonsillectomy - Immunizations Immunizations up to date: Yes Hx Diphtheria, Pertussis, Tetanus Vaccination: Yes Review of Systems - Review of Systems Notes: Constitutional: Negative for fever. HENT: Negative for sore throat. Eyes: Negative for visual changes. Cardiovascular: Positive for chest pain. Respiratory: Negative for shortness of breath. Gastrointestinal: Negative for abdominal pain, vomiting or diarrhea. Genitourinary: Negative for dysuria. Musculoskeletal: Negative for back pain. Skin: Negative for rash. Neurological: Positive for headaches, negative for weakness or numbness. 10 point ROS negative except as marked above and in HPI. Physical Exam - Vital signs Vitals: Temp Pulse Resp BP Pulse Ox 97.9 F 98 12 122/86 H 100 02/19/17 19:47 02/19/17 19:47 02/19/17 19:47 02/19/17 19:47 02/19/17 19:47 Interpretation: Normal Notes: PHYSICAL EXAMINATION: GENERAL: Well-appearing, well-nourished and in no acute distress. HEAD: Atraumatic, normocephalic. EYES: Pupils equal round and reactive to light, extraocular movements intact, sclera anicteric, conjunctiva are normal. ENT: nares patent, oropharynx clear without exudates. Moderately dry mucous membranes. NECK: Normal range of motion, supple without lymphadenopathy LUNGS: Breath sounds clear to auscultation bilaterally and equal. No wheezes rales or rhonchi. HEART: Regular rate and rhythm without murmurs ABDOMEN: Soft, nontender, normoactive bowel sounds. No guarding, no rebound. No masses appreciated. EXTREMITIES: Normal range of motion, no pitting or edema. No cyanosis. NEUROLOGICAL: No focal neurological deficits. Moves all extremities spontaneously and on command. PSYCH: Somewhat anxious SKIN: Warm, Dry, normal turgor, no rashes or lesions noted. Course - Re-evaluation Re-evalutation: 02/19/17 20:36 Patient presents with multiple vague complaints that did not appear to be concerning for any acute life-threatening pathology. Vitals are within normal limits at triage and at time of discharge. Physical examination is unremarkable. Patient has tolerated oral intake without difficulty. Patient was not noted to be in distress at any point during their ER visit. At this time, based on the reassuring evaluation, I do not suspect an acute IA, pulmonary embolus, aortic dissection, acute intra-abdominal pathology, stroke, or sepsis. Suspect large portion of patient's symptoms are secondary to anxiety given her reported inability to move her bilateral upper extremities which however she does without difficulty when she is not thinking about it. Repeat labs today unremarkable. Patient also has POTS disease and reports multiple near syncopal episodes which she states is typical for her pots disease. EKG unremarkable. Patient did have resolution of her symptoms after receiving IV Ativan, Benadryl and Compazine. Will discharge with return precautions and follow-up recommendations. Verbal discharge instructions given a the bedside and opportunity for questions given. Medication warnings reviewed. Patient is in agreement with this plan and has verbalized understanding of return precautions and the need for primary care follow-up in the next 24-72 hours. - Vital Signs Vital signs: Temp Pulse Resp BP Pulse Ox 98.4 F 81 16 119/79 99 02/19/17 22:29 02/19/17 22:29 02/19/17 22:29 02/19/17 22:29 02/19/17 22:29 - Laboratory Result Diagrams: 02/19/17 20:35 - EKG Interpretation by Me Additional EKG results interpreted by me: 02/19/17 22:17 Normal sinus rhythm. Rate 92. No ST elevations or depressions. QTC is 451. Discharge - Discharge Clinical Impression: Chest wall pain, Anxiety reaction Syncope Qualifiers: Syncope type: unspecified Qualified Code(s): R55 - Syncope and collapse Headache Qualifiers: Headache type: unspecified Headache chronicity pattern: acute headache Intractability: not intractable Qualified Code(s): R51 - Headache Condition: Good Disposition: HOME, SELF-CARE Additional Instructions: Please return to the emergency room immediately if you experience any concerning symptoms including high fevers, severe headache, chest pain, difficulty breathing, abdominal pain, slurred speech, numbness or weakness in your arms or legs, or any other symptom that concerns you. Referrals: XAVI THOMAS NP [Primary Care Provider] - Follow up as needed
[2017-02-19 21:17] LABS: ABSOLUTE EOSINOPHILS # (AUTO) 0.1 10^3/uL (0.0-0.6); ABSOLUTE LYMPHOCYTES (AUTO) 1.5 10^3/uL (0.5-4.7); ABSOLUTE MONOCYTES (AUTO) 0.8 10^3/uL (0.1-1.4); ABSOLUTE NEUT (AUTO) 7.8 10^3/uL (1.7-8.2); BASOPHILS % (AUTO) 0.5 % (0-2); EOSINOPHILS % (AUTO) 0.5 % (0-6); HEMATOCRIT 37.1 % (36.0-47.0); HEMOGLOBIN 12.7 g/dL (12.0-15.5); LYMPHOCYTES % (AUTO) 14.6 % (13-45); MEAN CORPUSCULAR HEMOGLOBIN 30.7 pg (27.0-33.4); MEAN CORPUSCULAR HGB CONC 34.1 g/dL (32.0-36.0); MEAN CORPUSCULAR VOLUME 90 fl (80-97); MONOCYTES % (AUTO) 7.7 % (3-13); RED BLOOD COUNT 4.13 10^6/uL (3.72-5.28); SEGMENTED NEUTROPHILS % (AUTO) 76.7 % (42-78); WHITE BLOOD COUNT 10.1 10^3/uL (4.0-10.5)
[2017-02-19 22:31] VITALS: BP 119/79
--- NOTE | 2017-02-20 09:53 | EKG REPORT ---
SEVERITY:- ABNORMAL ECG - SINUS RHYTHM PROBABLE LEFT ATRIAL ABNORMALITY BORDERLINE RIGHT AXIS DEVIATION INFERIOR Q WAVES, PROBABLY NORMAL VARIATION BORDERLINE T ABNORMALITIES, ANTERIOR LEADS : Confirmed by: Giovanny Brito MD 20-Feb-2017 09:53:15
== END 2017-02-19 22:29 | disposition home or self-care (01) ==
LOC: ER 19:25
DX: R07.89 Other chest pain (principal); R55 Syncope and collapse; R51 Headache; F41.1 Generalized anxiety disorder; Z88.1 Allergy status to other antibiotic agents; Z91.048 Other nonmedicinal substance allergy status; Z88.5 Allergy status to narcotic agent; Z91.040 Latex allergy status; Z86.79 Personal history of other diseases of the circulatory system
CPT/HCPCS: 93005; 99285; 96361; 96374; 96375; 36415; 84703; 85025; 93010; J1200; J1885; J2060; J0780; J7030

== ENCOUNTER 2017-02-23 13:56 | Emergency (ER) | payer MEDICAID ==
[2017-02-23] MEDS ORDERED: KETOROLAC TROMETHAMINE 60 MG/2 ML SDV IM ONE (15:01)
[2017-02-23] MEDS ORDERED: ONDANSETRON 4 MG TAB.RAPDIS PO ONE (15:01)
--- NOTE | 2017-02-23 15:05 | ER Document Report ---
ED Headache - General Chief Complaint: Headache Stated Complaint: URINARY PROBLEM Time Seen by Provider: 02/23/17 14:50 Mode of Arrival: Ambulatory Notes: 21-year-old female presents to ED for headache and urinary tract infection. She states she went to the urgent care and was told that she needed to come to the ED for her urinary tract infection. TRAVEL OUTSIDE OF THE [place] IN LAST 30 DAYS: No - HPI Patient complains to provider of: Headache Patient reports: Hx chronic headaches Onset: Other - Wednesday Onset was: Gradual Timing: Still present Quality of pain: Sharp Severity: Moderate Pain Level: 4 Associated symptoms: Nausea/vomiting, Other - headache Exacerbated by: Movement Similar symptoms previously: Yes Recently seen / treated by doctor: Yes - Related Data Allergies/Adverse Reactions: azithromycin [From Zithromax Z-Mark] Allergy (Mild, Verified 02/23/17 13:58) rash adhesive [Adhesive] Allergy (Verified 02/23/17 13:58) codeine [Codeine] Allergy (Verified 02/23/17 13:58) ITCHING, HIVES latex [Latex] Allergy (Verified 02/23/17 13:58) morphine [Morphine] Allergy (Verified 02/23/17 13:58) ITCHING, HIVES Past Medical History - General Information source: Patient - Social History Smoking Status: Never Smoker Cigarette use (# per day): No Chew tobacco use (# tins/day): No Smoking Education Provided: No Frequency of alcohol use: None Drug Abuse: None Lives with: Family Family History: Reviewed & Not Pertinent, CVA Patient has suicidal ideation: No Patient has homicidal ideation: No - Past Medical History Cardiac Medical History: Reports: Other - POTS Pulmonary Medical History: Reports: None EENT Medical History: Reports: None Neurological Medical History: Reports: None Endocrine Medical History: Reports: None Renal/ Medical History: Reports: Hx Ovarian Cysts Malignancy Medical History: Reports: None GI Medical History: Reports: None Musculoskeltal Medical History: Reports Hx Musculoskeletal Trauma Skin Medical History: Reports Hx Eczema Psychiatric Medical History: Reports: Hx Anxiety, Hx Attention Deficit Hyperactivity Disorder, Hx Depression - & anxiety Traumatic Medical History: Reports: None Infectious Medical History: Reports: None Past Surgical History: Reports: Hx Cholecystectomy, Hx Orthopedic Surgery - left knee, Hx Tonsillectomy - Immunizations Immunizations up to date: Yes Hx Diphtheria, Pertussis, Tetanus Vaccination: Yes Review of Systems - Review of Systems Constitutional: No symptoms reported EENT: No symptoms reported Cardiovascular: No symptoms reported Respiratory: No symptoms reported Gastrointestinal: Nausea Genitourinary: Frequency Female Genitourinary: Other - pelvic pain Musculoskeletal: No symptoms reported Skin: No symptoms reported Hematologic/Lymphatic: No symptoms reported Neurological/Psychological: Headaches -: Yes All other systems reviewed and negative Physical Exam - Vital signs Vitals: Temp Pulse Resp BP Pulse Ox 98.4 F 75 15 120/67 100 02/23/17 13:59 02/23/17 13:59 02/23/17 13:59 02/23/17 13:59 02/23/17 13:59 Interpretation: Normal - General General appearance: Appears well, Alert - HEENT Head: Normocephalic, Atraumatic Eyes: Normal Pupils: PERRL - Respiratory Respiratory status: No respiratory distress Chest status: Nontender Breath sounds: Normal Chest palpation: Normal - Cardiovascular Rhythm: Regular Heart sounds: Normal auscultation Murmur: No - Abdominal Inspection: Normal Distension: No distension Bowel sounds: Normal Tenderness: Nontender Organomegaly: No organomegaly - Back Back: Normal, Nontender - Extremities General upper extremity: Normal inspection, Nontender, Normal color, Normal ROM , Normal temperature General lower extremity: Normal inspection, Nontender, Normal color, Normal ROM , Normal temperature, Normal weight bearing. 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 Urine was negative. Patient requested Toradol and Zofran for her headache. She was seen in the emergency room on Wednesday and Wednesday and had complete workups. She knows she has an ovarian cyst and she states that is hurting some. She was given Toradol and Zofran for the pain in her pelvic and for her headache. She states her headache was much better before leaving. She was discharged home to follow-up with primary doctor. - Vital Signs Vital signs: Temp Pulse Resp BP Pulse Ox 98.4 F 75 15 120/67 100 02/23/17 13:59 02/23/17 13:59 02/23/17 13:59 02/23/17 13:59 02/23/17 13:59 - Laboratory Laboratory results interpreted by me: 02/23/17 15:06 Urine Urobilinogen 4.0 H Ur Leukocyte Esterase TRACE H Discharge - Discharge Clinical Impression: Headache Qualifiers: Headache type: unspecified Headache chronicity pattern: acute headache Intractability: not intractable Qualified Code(s): R51 - Headache Condition: Stable Disposition: HOME, SELF-CARE Additional Instructions: HEADACHE: The physician does not feel that the headache you are experiencing has a serious underlying cause. Most headaches are due to emotional stress, with resultant muscle tension (tension headache). Occasionally, headaches are secondary to changes in the blood vessels of the scalp (vascular headache and migraine headache). Sometimes, a headache is the first symptom of another developing illness, such as a viral infection. You have no evidence of stroke, bleeding, meningitis, or other serious cause of your headache. The treatment of headaches varies with the severity and cause of the pain. Not all headaches need pain shots. In fact, there is evidence that using narcotics for headaches may make them worse in the long run. The physician will determine the therapy that's in your best interest. If you develop a fever, if the headache is different from any you've previously experienced, or if the headache progressively worsens, then call your physician at once or go to the emergency room. ANT[place]AUSEA MEDICATION: You have been given a medication to suppress nausea and vomiting. This type of medication can be given as a shot, pill, or suppository. It will usually last for many hours. Pills and shots usually last six to eight hours, suppositories last about 12 hours. For the typical illness, only one or two doses of the medication may be necessary. Mild lightheadedness may occur. This type of medicine can cause drowsiness. Do not drive or operate dangerous machinery while under its influence. Do not mix with alcohol. See your doctor at once if you have muscle spasms or tightness, or uncontrollable motions (particularly of the neck, mouth, or jaw). Persistent vomiting or severe lightheadedness should also be evaluated by the physician. TORADOL INJECTION: You have been given an injection of ketorolac tromethamine (Toradol). This is an excellent, safe drug for pain control. It also has potent antiinflammatory action. You should have significant pain relief within about one hour. Toradol is not addicting and is non-sedating. It does not interfere with driving or work. Call or return if you develop itching, hives, shortness of breath, or rash. FOLLOW-UP CARE: If you have been referred to a physician for follow-up care, call the physician s office for an appointment as you were instructed or within the next two days. If you experience worsening or a significant change in your symptoms, notify the physician immediately or return to the Emergency Department at any time for re-evaluation. Prescriptions: Ibuprofen 600 mg PO Q6HP PRN #20 tablet PRN Reason: Ondansetron [Zofran Odt 4 mg Tablet] 1 tab PO Q6H #15 tab.leticia Referrals: SHIN CLARK NP-C [Primary Care Provider] - Follow up as needed
[2017-02-23 15:17] LABS: APPEARANCE,URINE SLIGHTLY-CLOUDY; BILIRUBIN,URINE NEGATIVE (NEGATIVE); GLUCOSE, URINE NEGATIVE (NEGATIVE); KETONES,URINE NEGATIVE (NEGATIVE); LEUKOCYTE ESTERASE,URINE TRACE (NEGATIVE); NITRITE,URINE NEGATIVE (NEGATIVE); PROTEIN,URINE NEGATIVE (NEGATIVE); URINE SPECIFIC GRAVITY 1.016
[2017-02-23 15:59] VITALS: BP 120/67
== END 2017-02-23 16:06 | disposition home or self-care (01) ==
LOC: ER 13:56
DX: R51 Headache (principal); R35.0 Frequency of micturition; R11.2 Nausea with vomiting, unspecified; Z88.3 Allergy status to other anti-infective agents; Z91.040 Latex allergy status; Z90.49 Acquired absence of other specified parts of digestive tract
CPT/HCPCS: 99284; 96372; 87086; 87088; 81001; J1885; S0119

== ENCOUNTER 2017-03-04 01:38 | Emergency (ER) | payer MEDICAID ==
[2017-03-04 01:46] VITALS: BP 105/56
== END 2017-03-04 03:18 | disposition left against medical advice (07) ==
LOC: ER 01:38
DX: Z53.21 Procedure and treatment not carried out due to patient leaving prior to being seen by health care provider (principal)

== ENCOUNTER 2017-03-04 14:32 | Emergency (ER) | payer MEDICAID ==
[2017-03-04 15:05] VITALS: BP 112/50
--- NOTE | 2017-03-04 15:21 | ER Document Report ---
ED Medical Screen (RME) - General Chief Complaint: Abdominal Pain Stated Complaint: ABDOMINAL PAIN Time Seen by Provider: 03/04/17 15:18 Notes: Patient says that she is here for abdominal cramping and a bloody discharge that began last night. Says that she is in her fourth , but is not certain as to her dates. Her last period was in January 31. Denies fever. Denies vomiting or diarrhea or UTI symptoms. PMH: Cholecystectomy. Only medication vitamins. TRAVEL OUTSIDE OF THE [place] IN LAST 30 DAYS: No - Related Data Allergies/Adverse Reactions: azithromycin [From Zithromax Z-Mark] Allergy (Mild, Verified 03/04/17 15:04) rash adhesive [Adhesive] Allergy (Verified 03/04/17 15:04) codeine [Codeine] Allergy (Verified 03/04/17 15:04) ITCHING, HIVES latex [Latex] Allergy (Verified 03/04/17 15:04) morphine [Morphine] Allergy (Verified 03/04/17 15:04) ITCHING, HIVES Past Medical History - Social History Chew tobacco use (# tins/day): No Frequency of alcohol use: None Drug Abuse: None - Past Medical History Cardiac Medical History: Denies: Hx Hypertension - KEN SYNDROME/murmur Pulmonary Medical History: Denies: Hx Asthma Renal/ Medical History: Reports: Hx Ovarian Cysts. Denies: Hx Peritoneal Dialysis Musculoskeltal Medical History: Reports Hx Musculoskeletal Trauma Skin Medical History: Reports Hx Eczema Psychiatric Medical History: Reports: Hx Anxiety, Hx Attention Deficit Hyperactivity Disorder, Hx Depression - & anxiety Past Surgical History: Reports: Hx Cholecystectomy, Hx Orthopedic Surgery - left knee, Hx Tonsillectomy - Immunizations Immunizations up to date: Yes Hx Diphtheria, Pertussis, Tetanus Vaccination: Yes Physical Exam - Vital signs Vitals: Temp Pulse Resp BP Pulse Ox 98.3 F 76 16 112/50 L 100 03/04/17 15:03 03/04/17 15:03 03/04/17 15:03 03/04/17 15:03 03/04/17 15:03 Course - Vital Signs Vital signs: Temp Pulse Resp BP Pulse Ox 98.3 F 76 16 112/50 L 100 03/04/17 15:03 03/04/17 15:03 03/04/17 15:03 03/04/17 15:03 03/04/17 15:03
[2017-03-04 16:23] LABS: ABSOLUTE BASOPHILS # (AUTO) 0.1 10^3/uL (0.0-0.2); ABSOLUTE EOSINOPHILS # (AUTO) 0.3 10^3/uL (0.0-0.6); ABSOLUTE MONOCYTES (AUTO) 0.7 10^3/uL (0.1-1.4); ABSOLUTE NEUT (AUTO) 5.5 10^3/uL (1.7-8.2); BASOPHILS % (AUTO) 0.8 % (0-2); EOSINOPHILS % (AUTO) 3.3 % (0-6); HEMATOCRIT 38.3 % (36.0-47.0); HEMOGLOBIN 12.8 g/dL (12.0-15.5); HGB HCT DIFFERENCE 0.1; LYMPHOCYTES % (AUTO) 23.2 % (13-45); MEAN CORPUSCULAR HEMOGLOBIN 29.8 pg (27.0-33.4); MEAN CORPUSCULAR HGB CONC 33.4 g/dL (32.0-36.0); MEAN CORPUSCULAR VOLUME 89 fl (80-97); MONOCYTES % (AUTO) 8.7 % (3-13); RED CELL DISTRIBUTION WIDTH 13.4 % (11.5-14.0); WHITE BLOOD COUNT 8.6 10^3/uL (4.0-10.5)
--- NOTE | 2017-03-05 15:17 | RADIOLOGY REPORT (SQ) ---
EXAM DESCRIPTION: U/S OB TRANSVAG W/DOPPLER COMPLETED DATE/TIME: 03/04/2017 5:46 pm REASON FOR STUDY: , abdominal cramping, bloody discharge COMPARISON: None. TECHNIQUE: Dynamic and static grayscale images acquired of the pelvis via transvaginal approach and recorded on PACS. Additional selected color Doppler and spectral images recorded. LIMITATIONS: None. FINDINGS: UTERUS: Contour normal. No mass. ENDOMETRIAL STRIPE: No focal or generalized thickening. No masses. CERVIX: No nabothian cysts. RIGHT OVARY: 2 x 1.6 x 1.1 cm complex cyst. RIGHT OVARY DOPPLER: Normal arterial vascular flow without evidence for torsion. LEFT OVARY: No abnormal masses. LEFT OVARY DOPPLER: Normal arterial vascular flow without evidence for torsion. FREE FLUID: Trace cul-de-sac free fluid. OTHER: No other significant finding. MEASUREMENTS: UTERUS: 6.1 x 5.3 x 4.4 cm ENDOMETRIAL STRIPE: 11 mm RIGHT OVARY: 3.4 x 1.8 x 1.7 cm LEFT OVARY: 1.4 x 1.5 x 2.2 cm IMPRESSION: 2 x 1.6 x 1.1 cm complex right ovarian cyst. Otherwise unremarkable exam. TECHNICAL DOCUMENTATION: JOB ID: [id number] [employer]- All Rights Reserved
== END 2017-03-04 17:18 | disposition home or self-care (01) ==
LOC: ER 14:32
DX: O26.891 Other specified pregnancy related conditions, first trimester (principal); R10.9 Unspecified abdominal pain; O20.9 Hemorrhage in early pregnancy, unspecified; Z3A.01 Less than 8 weeks gestation of pregnancy; Z53.29 Procedure and treatment not carried out because of patient's decision for other reasons
CPT/HCPCS: 36415; 76817; 84702; 85025; 86900; 86901; 93976; 99284

== ENCOUNTER 2017-04-28 14:09 | Emergency (ER) | payer MEDICAID ==
[2017-04-28] MEDS ORDERED: IBUPROFEN 600 MG TABLET PO ONE (15:13)
[2017-04-28 16:03] LABS: ABSOLUTE BASOPHILS # (AUTO) 0.1 10^3/uL (0.0-0.2); ABSOLUTE EOSINOPHILS # (AUTO) 0.1 10^3/uL (0.0-0.6); ABSOLUTE MONOCYTES (AUTO) 0.6 10^3/uL (0.1-1.4); ABSOLUTE NEUT (AUTO) 6.1 10^3/uL (1.7-8.2); BASOPHILS % (AUTO) 0.7 % (0-2); EOSINOPHILS % (AUTO) 1.6 % (0-6); HEMATOCRIT 32.5 % (36.0-47.0); HEMOGLOBIN 11.3 g/dL (12.0-15.5); HGB HCT DIFFERENCE 1.4; LYMPHOCYTES % (AUTO) 22.6 % (13-45); MEAN CORPUSCULAR HEMOGLOBIN 30.8 pg (27.0-33.4); MEAN CORPUSCULAR HGB CONC 34.7 g/dL (32.0-36.0); MEAN CORPUSCULAR VOLUME 89 fl (80-97); RED BLOOD COUNT 3.66 10^6/uL (3.72-5.28); SEGMENTED NEUTROPHILS % (AUTO) 68.1 % (42-78)
[2017-04-28 16:14] LABS: APPEARANCE,URINE SLIGHTLY-CLOUDY; BILIRUBIN,URINE NEGATIVE (NEGATIVE); GLUCOSE, URINE NEGATIVE (NEGATIVE); KETONES,URINE NEGATIVE (NEGATIVE); LEUKOCYTE ESTERASE,URINE TRACE (NEGATIVE); NITRITE,URINE NEGATIVE (NEGATIVE); PROTEIN,URINE NEGATIVE (NEGATIVE); URINE SPECIFIC GRAVITY 1.019; UROBILINOGEN,URINE NEGATIVE mg/dL (<2.0)
[2017-04-28 16:16] LABS: ALANINE AMINOTRANSFERASE 37 U/L (9-52); ALBUMIN 4.9 g/dL (3.5-5.0); ALKALINE PHOSPHATASE 78 U/L (38-126); ANION GAP 15 (5-19); ASPARTATE AMINO TRANSFERASE 20 U/L (14-36); BILIRUBIN,DIRECT 0.4 mg/dL (0.0-0.4); BILIRUBIN,TOTAL 0.7 mg/dL (0.2-1.3); BLOOD UREA NITROGEN 11 mg/dL (7-20); CARBON DIOXIDE 25 mmol/L (22-30); CHLORIDE 103 mmol/L (98-107); CREATININE RESULT 0.73 mg/dL (0.52-1.25); GLUCOSE 82 mg/dL (75-110); POTASSIUM 4.2 mmol/L (3.6-5.0); SODIUM 142.6 mmol/L (137-145); TOTAL PROTEIN 7.7 g/dL (6.3-8.2)
--- NOTE | 2017-04-28 16:28 | RADIOLOGY REPORT (SQ) ---
EXAM DESCRIPTION: U/S NON-OB PELVIS TV W/O DOP COMPLETED DATE/TIME: 04/28/2017 4:17 pm REASON FOR STUDY: ?retained products COMPARISON: 02/17/2017 TECHNIQUE: Dynamic and static grayscale images acquired of the pelvis via transvaginal approach and recorded on PACS. Additional selected color Doppler and spectral images recorded. LIMITATIONS: None. FINDINGS: UTERUS: Contour normal. No mass. ENDOMETRIAL STRIPE: No focal or generalized thickening. No masses. CERVIX: 2.4 cm. No nabothian cysts. RIGHT OVARY: There is a 14 x 12 x 7 mm cyst. RIGHT OVARY DOPPLER: Normal arterial vascular flow without evidence for torsion. LEFT OVARY: Not seen. LEFT OVARY DOPPLER: Ovary not seen. FREE FLUID: None noted. OTHER: No other significant finding. MEASUREMENTS: UTERUS: 6.6 x 5.2 x 4.6 cm. ENDOMETRIAL STRIPE: 11 mm. RIGHT OVARY: 3.4 x 2.1 x 1.6 cm. LEFT OVARY: Not seen. IMPRESSION: The study is essentially normal. There is a small right ovarian cyst. This is smaller than on the previous study. TECHNICAL DOCUMENTATION: JOB ID: [id number] [employer]- All Rights Reserved
[2017-04-28 18:26] VITALS: BP 104/60
--- NOTE | 2017-04-28 18:29 | ER Document Report ---
ED General - General Chief Complaint: Abdominal Pain Stated Complaint: DIZZY,ABDOMINAL PAIN,HEADACHE Time Seen by Provider: 04/28/17 15:07 Mode of Arrival: Ambulatory Information source: Patient Notes: Patient has bilateral lower abdominal crampy pain. She also has some vaginal bleeding. This began approximate 2 weeks ago after a D&C. She states she does have an appointment in 2 days with her [facility] however she is having trouble sleeping secondary to the pain. Therefore she in the emergency department for evaluation. The pain is constant and radiates to her low back. Nothing makes it better or worse. It is moderate in intensity. It is crampy in nature. She has some nausea but no vomiting. No problems with urine or stool. No fevers. TRAVEL OUTSIDE OF THE [place] IN LAST 30 DAYS: No - Related Data Allergies/Adverse Reactions: azithromycin [From Zithromax Z-Mark] Allergy (Mild, Verified 04/28/17 14:17) rash adhesive [Adhesive] Allergy (Verified 04/28/17 14:17) codeine [Codeine] Allergy (Verified 04/28/17 14:17) ITCHING, HIVES latex [Latex] Allergy (Verified 04/28/17 14:17) morphine [Morphine] Allergy (Verified 04/28/17 14:17) ITCHING, HIVES Past Medical History - Social History Smoking Status: Never Smoker Chew tobacco use (# tins/day): No Frequency of alcohol use: None Drug Abuse: None Family History: Reviewed & Not Pertinent, CVA - Past Medical History Cardiac Medical History: Denies: Hx Hypertension - KEN SYNDROME/murmur Pulmonary Medical History: Denies: Hx Asthma Renal/ Medical History: Reports: Hx Ovarian Cysts. Denies: Hx Peritoneal Dialysis Musculoskeltal Medical History: Reports Hx Musculoskeletal Trauma Skin Medical History: Reports Hx Eczema Psychiatric Medical History: Reports: Hx Anxiety, Hx Attention Deficit Hyperactivity Disorder, Hx Depression - & anxiety Past Surgical History: Reports: Hx Cholecystectomy, Hx Orthopedic Surgery - left knee, Hx Tonsillectomy - Immunizations Immunizations up to date: Yes Hx Diphtheria, Pertussis, Tetanus Vaccination: Yes Review of Systems - Review of Systems Constitutional: denies: Chills, Fever Cardiovascular: denies: Chest pain, Palpitations Respiratory: denies: Cough, Short of breath Musculoskeletal: Back pain -: Yes All other systems reviewed and negative Physical Exam - Vital signs Vitals: Temp Pulse Resp BP Pulse Ox 98.9 F 98 19 112/64 100 04/28/17 14:12 04/28/17 14:12 04/28/17 14:12 04/28/17 14:12 04/28/17 14:12 Interpretation: Normal - General General appearance: Appears well, Alert - HEENT Head: Normocephalic, Atraumatic Eyes: Normal Pupils: PERRL - Respiratory Respiratory status: No respiratory distress Chest status: Nontender Breath sounds: Normal Chest palpation: Normal - Cardiovascular Rhythm: Regular Heart sounds: Normal auscultation Murmur: No - Abdominal Inspection: Normal Distension: No distension Bowel sounds: Normal Tenderness: Tender - Patient has mild bilateral lower quadrant tenderness to palpation. No rebound or guarding. Organomegaly: No organomegaly - Back Back: Normal, Nontender - Extremities General upper extremity: Normal inspection, Nontender, Normal color, Normal ROM , Normal temperature General lower extremity: Normal inspection, Nontender, Normal color, Normal ROM , Normal temperature, Normal weight bearing. No: Esequiel's sign - Neurological Neuro grossly intact: Yes Cognition: Normal Orientation: AAOx4 [place] Coma Scale Eye Opening: Spontaneous [place]da Coma Scale Verbal: Oriented [place] Coma Scale Motor: Obeys Commands [place] Coma Scale Total: 15 Speech: Normal Motor strength normal: LUE, RUE, LLE, RLE Sensory: Normal - Psychological Associated symptoms: Normal affect, Normal mood - Skin Skin Temperature: Warm Skin Moisture: Dry Skin Color: Normal Course - Re-evaluation Re-evalutation: 04/28/17 18:28 I discussed the case with Dr. Crowe from [facility]. He felt that patient should follow-up with her [facility] within the next 1-2 days as scheduled. - Vital Signs Vital signs: Temp Pulse Resp BP Pulse Ox 98.9 F 98 19 112/64 100 04/28/17 14:12 04/28/17 14:12 04/28/17 14:12 04/28/17 14:12 04/28/17 14:12 - Laboratory Result Diagrams: 04/28/17 15:30 04/28/17 15:30 Laboratory results interpreted by me: 04/28/17 04/28/17 04/28/17 15:30 15:30 15:30 RBC 3.66 L Hgb 11.3 L Hct 32.5 L Beta HCG, Quant 455.73 H Urine Blood LARGE H Ur Leukocyte Esterase TRACE H Urine HCG, Qual POSITIVE H - Diagnostic Test Radiology reviewed: Image reviewed, Reports reviewed - Ultrasound shows no evidence of retained products. Discharge - Discharge Clinical Impression: Pelvic pain Condition: Stable Disposition: HOME, SELF-CARE Instructions: Abdominal Pain ([facility]) Additional Instructions: Please follow-up with your [facility] provider as scheduled. Prescriptions: Hydrocodone/Acetaminophen [[place] 5-325 mg Tablet] 1 tab PO Q6 PRN #15 tablet PRN Reason:
== END 2017-04-28 18:27 | disposition home or self-care (01) ==
LOC: ER 14:09
DX: R10.2 Pelvic and perineal pain (principal); R10.9 Unspecified abdominal pain; R42 Dizziness and giddiness; R51 Headache; M54.5 Low back pain
CPT/HCPCS: 36415; 84702; 85025; 81025; 80053; 81001; 76830; J3490

== ENCOUNTER 2017-05-14 20:25 | Emergency (ER) | payer MEDICAID ==
[2017-05-14] MEDS ORDERED: ASPIRIN 81 MG TABLET, CHEWABLE PO ONE (21:26)
[2017-05-14 22:07] LABS: ABSOLUTE BASOPHILS # (AUTO) 0.1 10^3/uL (0.0-0.2); ABSOLUTE EOSINOPHILS # (AUTO) 0.1 10^3/uL (0.0-0.6); ABSOLUTE LYMPHOCYTES (AUTO) 2.2 10^3/uL (0.5-4.7); ABSOLUTE MONOCYTES (AUTO) 0.7 10^3/uL (0.1-1.4); ABSOLUTE NEUT (AUTO) 7.7 10^3/uL (1.7-8.2); BASOPHILS % (AUTO) 0.7 % (0-2); EOSINOPHILS % (AUTO) 1.2 % (0-6); HEMATOCRIT 34.1 % (36.0-47.0); HEMOGLOBIN 11.5 g/dL (12.0-15.5); HGB HCT DIFFERENCE 0.4; LYMPHOCYTES % (AUTO) 20.8 % (13-45); MEAN CORPUSCULAR HEMOGLOBIN 29.7 pg (27.0-33.4); MEAN CORPUSCULAR HGB CONC 33.8 g/dL (32.0-36.0); MEAN CORPUSCULAR VOLUME 88 fl (80-97); MONOCYTES % (AUTO) 6.1 % (3-13); RED BLOOD COUNT 3.88 10^6/uL (3.72-5.28); RED CELL DISTRIBUTION WIDTH 13.3 % (11.5-14.0); SEGMENTED NEUTROPHILS % (AUTO) 71.2 % (42-78); WHITE BLOOD COUNT 10.8 10^3/uL (4.0-10.5)
[2017-05-14 22:25] LABS: ALANINE AMINOTRANSFERASE 29 U/L (9-52); ALBUMIN 4.5 g/dL (3.5-5.0); ALKALINE PHOSPHATASE 82 U/L (38-126); ANION GAP 13 (5-19); ASPARTATE AMINO TRANSFERASE 24 U/L (14-36); BILIRUBIN,DIRECT 0.4 mg/dL (0.0-0.4); BILIRUBIN,TOTAL 0.7 mg/dL (0.2-1.3); BLOOD UREA NITROGEN 12 mg/dL (7-20); CALCIUM 9.7 mg/dL (8.4-10.2); CARBON DIOXIDE 25 mmol/L (22-30); CHLORIDE 105 mmol/L (98-107); CREATINE KINASE 44 U/L (30-135); CREATININE RESULT 0.66 mg/dL (0.52-1.25); GLUCOSE 114 mg/dL (75-110); POTASSIUM 3.9 mmol/L (3.6-5.0); SODIUM 142.8 mmol/L (137-145)
[2017-05-14 22:37] LABS: CREATINE KINASE MB 0.25 ng/mL (<4.55)
--- NOTE | 2017-05-14 22:37 | RADIOLOGY REPORT (SQ) ---
EXAM DESCRIPTION: CHEST SINGLE VIEW COMPLETED DATE/TIME: 05/14/2017 10:19 pm REASON FOR STUDY: chest pain COMPARISON: 10/22/2010 EXAM PARAMETERS: NUMBER OF VIEWS: One view. TECHNIQUE: Single frontal radiographic view of the chest acquired. RADIATION DOSE: NA LIMITATIONS: None. FINDINGS: LUNGS AND PLEURA: No opacities, masses or pneumothorax. No pleural effusion. MEDIASTINUM AND HILAR STRUCTURES: No masses. Contour normal. HEART AND VASCULAR STRUCTURES: Heart normal in size. Normal vasculature. BONES: No acute findings. HARDWARE: None in the chest. OTHER: No other significant finding. IMPRESSION: NO ACUTE RADIOGRAPHIC FINDING IN THE CHEST. TECHNICAL DOCUMENTATION: JOB ID: [id number]
[2017-05-14 22:38] LABS: TROPONIN I < 0.012 ng/mL
[2017-05-14] MEDS ORDERED: FAMOTIDINE 20 MG TABLET PO ONE (23:44)
--- NOTE | 2017-05-14 23:44 | ER Document Report ---
ED General - General Chief Complaint: Chest Pain Stated Complaint: CHEST PAINS, NECK TIGHTNESS, DIFFICULTY BREATHING Time Seen by Provider: 05/14/17 23:08 Notes: Patient is a 21-year-old female presents with complaint of chest pain and tightness. She says it feels as if there is a burning sensation in her upper chest going into her throat. She says she is concerned because she has a history of some hyperthyroidism and the burning is right behind her thyroid gland in her throat. She also has a history of pulmonary stenosis. She is followed with yearly echocardiograms. She says that since the child her pulmonary stenosis has remained the same she does not require surgery. Her heart doctors in [place]. She denies any fevers. No infections. No abdominal pain. Some nausea but no vomiting. No other complaints at this time. TRAVEL OUTSIDE OF THE [place] IN LAST 30 DAYS: No - Related Data Allergies/Adverse Reactions: azithromycin [From Zithromax Z-Mark] Allergy (Mild, Verified 05/14/17 20:41) rash adhesive [Adhesive] Allergy (Verified 05/14/17 20:41) codeine [Codeine] Allergy (Verified 05/14/17 20:41) ITCHING, HIVES latex [Latex] Allergy (Verified 05/14/17 20:41) morphine [Morphine] Allergy (Verified 05/14/17 20:41) ITCHING, HIVES Past Medical History - Social History Smoking Status: Never Smoker Frequency of alcohol use: None Drug Abuse: None Family History: Reviewed & Not Pertinent, CVA Patient has suicidal ideation: No Patient has homicidal ideation: No - Past Medical History Cardiac Medical History: Denies: Hx Hypertension - KEN SYNDROME/murmur Pulmonary Medical History: Denies: Hx Asthma Renal/ Medical History: Reports: Hx Ovarian Cysts. Denies: Hx Peritoneal Dialysis Musculoskeltal Medical History: Reports Hx Musculoskeletal Trauma Skin Medical History: Reports Hx Eczema Psychiatric Medical History: Reports: Hx Anxiety, Hx Attention Deficit Hyperactivity Disorder, Hx Depression - & anxiety Past Surgical History: Reports: Hx Cholecystectomy, Hx Gynecologic Surgery - d&C , Hx Orthopedic Surgery - left knee, Hx Tonsillectomy - Immunizations Immunizations up to date: Yes Hx Diphtheria, Pertussis, Tetanus Vaccination: Yes Review of Systems - Review of Systems Notes: My Normal Review Basic REVIEW OF SYSTEMS: CONSTITUTIONAL : Denies fever, chills, or sweats. Denies recent illness. EENT: Denies eye, ear, throat, or mouth pain or symptoms. Denies nasal or sinus congestion. CARDIOVASCULAR: Some chest pain. RESPIRATORY: Denies cough, cold, or chest congestion. Denies shortness of breath, difficulty breathing, or wheezing. GASTROINTESTINAL: Denies abdominal pain. Denies nausea, vomiting, or diarrhea. Denies constipation. Last BM: MUSCULOSKELETAL: Denies neck or back pain or joint pain or swelling. SKIN: Denies rash or skin lesions. NEUROLOGICAL: Had a syncopal episode. denies headache. Denies weakness or paralysis or loss of use of either side. Denies problems with gait or speech. Denies sensory or motor loss. ALL OTHER SYSTEMS REVIEWED AND NEGATIVE. Physical Exam - Vital signs Vitals: Temp Pulse Resp BP Pulse Ox 98.4 F 87 16 118/70 100 05/14/17 20:41 05/14/17 20:41 05/14/17 20:41 05/14/17 20:41 05/14/17 20:41 - Notes Notes: General Appearance: Well nourished, alert, cooperative, no acute distress, no obvious discomfort. Well-appearing. Vitals: reviewed, See vital signs table. Head: no swelling or tenderness to the head Eyes: PERRL, EOMI, Conjuctiva clear Mouth: No decreasd moisture Throat: No tonsillar inflammation, No airway obstruction, No lymphadenopathy Neck: Supple, no neck tenderness, No thyromegaly Lungs: No wheezing, No rales, No rhonci, No accessory muscle use, good air exchange bilaterally. Heart: Normal rate, Regular rythm, No murmur, no rub Abdomen: Normal BS, soft, No rigidity, No abdominal tenderness, No guarding, no rebound, no abdominal masses, no organomegaly Extremities: strength 5/5 in all extremities, good pulses in all extremities, no swelling or tenderness in the extremities, no edema. Skin: warm, dry, appropriate color, no rash Neuro: speech clear, oriented x 3, normal affect, responds appropriately to questions. Course - Re-evaluation Re-evalutation: 05/15/17 06:09 Patient is very well-appearing on exam. Her laboratory evaluation and chest x- ray and EKG are negative. She describes her symptoms as a burning sensation going into her throat. This sounds most consistent with acid reflux. I will place her on Pepcid. She has no edema on her extremities. No edema in her lungs. I do not see any physical exam findings to suggest that her symptoms are related to her pulmonary valve stenosis. I do not suspect this hyperthyroidism being that her vital signs are normal. At this time I will have her follow-up closely with her primary care doctor and isolation washer for reevaluation this week. I will start on the Pepcid. Encouraged her return to ER immediately if she has syncopal episodes, worsening chest pain, difficulty breathing, or she feels unwell. Patient agrees with plan will be discharged home. Dictation of this chart was performed using voice recognition software; therefore, there may be some unintended grammatical errors. - Vital Signs Vital signs: Temp Pulse Resp BP Pulse Ox 98.7 F 86 20 114/65 100 05/15/17 00:11 05/15/17 00:11 05/15/17 00:11 05/15/17 00:11 05/15/17 00:11 - Laboratory Result Diagrams: 05/14/17 21:51 05/14/17 21:51 Laboratory results interpreted by me: 05/14/17 05/14/17 21:51 21:51 WBC 10.8 H Hgb 11.5 L Hct 34.1 L Glucose 114 H Discharge - Discharge Clinical Impression: Chest pain Qualifiers: Chest pain type: unspecified Qualified Code(s): R07.9 - Chest pain, unspecified Syncope Qualifiers: Syncope type: unspecified Qualified Code(s): R55 - Syncope and collapse Condition: Good Disposition: HOME, SELF-CARE Additional Instructions: Please return to the ER immediately if you develop recurrent passing out, worsening chest pain, fevers, or feel unwell. Please call your isolation washer for a close follow up appointment. Please rest over the next few days and do not do anything exertional. Prescriptions: Famotidine [Pepcid 20 mg Tablet] 20 mg PO DAILY #30 tablet
[2017-05-15 00:12] VITALS: BP 114/65
--- NOTE | 2017-05-15 13:33 | EKG REPORT ---
SEVERITY:- OTHERWISE NORMAL ECG - SINUS RHYTHM BORDERLINE RIGHT AXIS DEVIATION : Confirmed by: Whitley Arenas 15-May-2017 13:32:51
== END 2017-05-14 23:55 | disposition home or self-care (01) ==
LOC: ER 20:25
DX: R07.89 Other chest pain (principal); R55 Syncope and collapse; E05.90 Thyrotoxicosis, unspecified without thyrotoxic crisis or storm; I37.0 Nonrheumatic pulmonary valve stenosis; R11.0 Nausea; Z88.1 Allergy status to other antibiotic agents; Z91.048 Other nonmedicinal substance allergy status; Z91.040 Latex allergy status; Z88.5 Allergy status to narcotic agent
CPT/HCPCS: 93005; 99285; 36415; 82553; 82550; 85025; 80053; 84484; 71010; 93010; J3490

== ENCOUNTER → 2017-06-17 | Outpatient (CLI) | payer MEDICAID | LOC: OD 16:15 | PROVIDERS: ATTEND Physician Assistant | DX: Z32.01 Encounter for pregnancy test, result positive (principal); Z98.890 Other specified postprocedural states | CPT/HCPCS: 36415; 84702 ==

== ENCOUNTER 2017-07-24 19:30 | Emergency (ER) | payer MEDICAID ==
--- NOTE | 2017-07-24 19:50 | ER Document Report ---
ED GI/ - General Chief Complaint: Vaginal Bleeding Stated Complaint: VAGINAL BLEEDING Time Seen by Provider: 07/24/17 19:44 Mode of Arrival: Ambulatory Information source: Patient, [facility] Records Notes: 21-year-old female patient comes emergency room for red and brown blood spotting off and on since early June. She had her first positive test about 2 weeks ago at home. She did have a negative serum hCG on 2016. This was follow-up from a D&C in April done at just over 10 weeks to be sure her hormone level did go back to 0. There are no cramps, no clots, no pain. Other than the fact that she has been spotting and knows she has positive test, she feels fine. TRAVEL OUTSIDE OF THE [place] IN LAST 30 DAYS: No - Related Data Allergies/Adverse Reactions: azithromycin [From Zithromax Z-Mark] Allergy (Mild, Verified 05/25/17 17:33) rash adhesive [Adhesive] Allergy (Verified 05/25/17 17:33) codeine [Codeine] Allergy (Verified 05/25/17 17:33) ITCHING, HIVES latex [Latex] Allergy (Verified 05/25/17 17:33) morphine [Morphine] Allergy (Verified 05/25/17 17:33) ITCHING, HIVES Past Medical History - General Information source: Patient, [facility] Records - Social History Smoking Status: Never Smoker Cigarette use (# per day): No Chew tobacco use (# tins/day): No Smoking Education Provided: No Frequency of alcohol use: None Drug Abuse: None Lives with: Family Family History: Reviewed & Not Pertinent, CVA - Past Medical History Cardiac Medical History: Denies: Hx Hypertension - KEN SYNDROME/murmur Pulmonary Medical History: Reports: None EENT Medical History: Reports: None Neurological Medical History: Reports: None Endocrine Medical History: Reports: None Renal/ Medical History: Reports: Hx Ovarian Cysts GI Medical History: Reports: None Musculoskeltal Medical History: Reports Hx Musculoskeletal Trauma, 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 Skin Medical History: Reports Hx Eczema Psychiatric Medical History: Reports: Hx Anxiety, Hx Attention Deficit Hyperactivity Disorder, Hx Depression - & anxiety Past Surgical History: Reports: Hx Cholecystectomy, Hx Gynecologic Surgery - d&C , Hx Orthopedic Surgery - left knee, Hx Tonsillectomy - Immunizations Immunizations up to date: Yes Hx Diphtheria, Pertussis, Tetanus Vaccination: Yes Review of Systems - Review of Systems Constitutional: No symptoms reported EENT: No symptoms reported Cardiovascular: No symptoms reported Respiratory: No symptoms reported Gastrointestinal: No symptoms reported Genitourinary: No symptoms reported Female Genitourinary: See HPI Musculoskeletal: No symptoms reported Skin: No symptoms reported Hematologic/Lymphatic: No symptoms reported Neurological/Psychological: No symptoms reported Physical Exam - Vital signs Vitals: Temp Pulse Resp BP Pulse Ox 98.2 F 85 14 120/70 100 07/24/17 19:40 07/24/17 19:40 07/24/17 19:40 07/24/17 19:40 07/24/17 19:40 Interpretation: Normal - General General appearance: Appears well, Alert In distress: None - HEENT Head: Normocephalic, Atraumatic Eyes: Normal Pupils: PERRL - Respiratory Respiratory status: No respiratory distress - Cardiovascular Rhythm: Regular - Abdominal Inspection: Normal Tenderness: Nontender - Back Back: Normal - Extremities General upper extremity: Other - Upper extremity exam is consistent with the patient's description of having Quinten-Danlos syndrome General lower extremity: Normal inspection - Neurological Neuro grossly intact: Yes - Psychological Associated symptoms: Normal affect, Normal mood - Skin Skin Temperature: Warm Skin Moisture: Dry Skin Color: Normal Course - Re-evaluation Re-evalutation: 07/24/17 21:02 Serum hCG is 62.23 Given that she had a positive home 2 weeks ago, and her current symptoms she has most likely suffered a miscarriage. She will be advised to follow-up [facility] to recheck her hormone level and symptoms. 07/24/17 21:13 Late history the patient provided at discharge is that she had positive home test, saw Dr. Salamanca on 1229 and had a negative urine in the office and a serum sent off which came back negative. She reports having positive urine pregnancies since then at home. It is confusing if all these positive and negative pregnancies were accurate. - Vital Signs Vital signs: Temp Pulse Resp BP Pulse Ox 98.2 F 85 14 120/70 100 07/24/17 19:40 07/24/17 19:40 07/24/17 19:40 07/24/17 19:40 07/24/17 19:40 - Laboratory Result Diagrams: 07/24/17 20:10 Laboratory results interpreted by me: 07/24/17 07/24/17 20:10 20:10 Hgb 11.2 L Hct 34.2 L RDW 15.7 H Beta HCG, Quant 62.23 H Discharge - Discharge Clinical Impression: Miscarriage Condition: Stable Disposition: HOME, SELF-CARE Additional Instructions: Miscarriage: You have MOST LIKELY had a miscarriage (medically called a "spontaneous "). You should rest in bed for two or three days. As there is some risk of infection of the uterus, you should not have intercourse for one week (or until okayed by your physician). You might not have a period for six to eight weeks. You should not become again for at least three months -- the uterus requires time to get back to normal. Call the doctor or return for re-examination if there is heavy or persistent vaginal bleeding, fever, foul discharge, continued cramping pains, or abdominal pain. //////////////////////////////////////////////////////////////////////////////// //////////////////////////////////////////////////////////////////////////////// ///////////////// Your serum hCG level is only 62.23 Given that you had a positive home test 2 weeks ago, it should be a few thousand by now. With the symptoms you have been having along with a very low hormone level, it is most likely that you have suffered a miscarriage. You should follow-up with your [facility] doctor on Wednesday to repeat your hormone level and be sure that it is continuing to decline. RETURN TO THE EMERGENCY ROOM IF ANY NEW OR WORSENING SYMPTOMS.
[2017-07-24 20:23] LABS: ABSOLUTE EOSINOPHILS # (AUTO) 0.1 10^3/uL (0.0-0.6); ABSOLUTE LYMPHOCYTES (AUTO) 1.9 10^3/uL (0.5-4.7); ABSOLUTE MONOCYTES (AUTO) 0.6 10^3/uL (0.1-1.4); ABSOLUTE NEUT (AUTO) 3.8 10^3/uL (1.7-8.2); BASOPHILS % (AUTO) 0.8 % (0-2); EOSINOPHILS % (AUTO) 1.6 % (0-6); HEMATOCRIT 34.2 % (36.0-47.0); HEMOGLOBIN 11.2 g/dL (12.0-15.5); LYMPHOCYTES % (AUTO) 29.9 % (13-45); MEAN CORPUSCULAR HGB CONC 32.8 g/dL (32.0-36.0); MEAN CORPUSCULAR VOLUME 82 fl (80-97); MONOCYTES % (AUTO) 8.8 % (3-13); PLATELET COUNT 348 10^3/uL (150-450); RED BLOOD COUNT 4.16 10^6/uL (3.72-5.28); RED CELL DISTRIBUTION WIDTH 15.7 % (11.5-14.0); SEGMENTED NEUTROPHILS % (AUTO) 58.9 % (42-78); TOTAL CELLS COUNTED % (AUTO) 100 %; WHITE BLOOD COUNT 6.4 10^3/uL (4.0-10.5)
[2017-07-24 21:19] VITALS: BP 125/78
== END 2017-07-24 21:10 | disposition home or self-care (01) ==
LOC: ER 19:30
DX: O03.9 Complete or unspecified spontaneous abortion without complication (principal); Z88.1 Allergy status to other antibiotic agents; Z91.048 Other nonmedicinal substance allergy status; Z88.5 Allergy status to narcotic agent; Z91.040 Latex allergy status
CPT/HCPCS: 36415; 84702; 85025; 99284

== ENCOUNTER 2017-07-26 20:38 | Emergency (ER) | payer MEDICAID ==
[2017-07-26] MEDS ORDERED: ACETAMINOPHEN 325 MG TABLET PO ONE (20:42)
--- NOTE | 2017-07-26 22:29 | RADIOLOGY REPORT (SQ) ---
EXAM DESCRIPTION: HAND RIGHT 3 VIEWS COMPLETED DATE/TIME: 07/26/2017 10:00 pm REASON FOR STUDY: pain , slammed hand in the door. COMPARISON: Right wrist x-ray 07/04/2010. EXAM PARAMETERS: NUMBER OF VIEWS: Three views. TECHNIQUE: AP, lateral and oblique radiographic images acquired of the right hand. LIMITATIONS: None. FINDINGS: MINERALIZATION: Normal. BONES: No acute fracture or dislocation. SOFT TISSUES: No soft tissue swelling. No radiopaque foreign body. IMPRESSION: No radiographic evidence of acute injury. TECHNICAL DOCUMENTATION: JOB ID: [id number] 2010 [employer]- All Rights Reserved
--- NOTE | 2017-07-26 23:01 | ER Document Report ---
HPI - HPI Patient complains to provider of: Hand injury Pain Level: 5 Context: Patient is a 21-year-old female who is right-hand dominant presents to the ER complaining of right hand injury. Patient states that she was getting out of her car and her fianc accidentally closed the door on her hand. She admits to discomfort at the base of her thumb is full range of motion denies any numbness or tingling. He is able to make a fist with some pain. She did not take anything prior to arrival. Otherwise healthy female. - CONSTITUTIONAL Constitutional: DENIES: Fever, Chills - EENT EENT: DENIES: Sore Throat, Ear Pain, Eye problems - NEURO Neurology: DENIES: Headache, Weakness, Vision blurred, Dizzinesss / Vertigo - CARDIOVASCULAR Cardiovascular: DENIES: Chest pain - RESPIRATORY Respiratory: DENIES: Trouble Breathing, Coughing - GASTROINTESTINAL Gastrointestinal: REPORTS: Abdominal Pain. DENIES: Black / Bloody Stools - URINARY Urinary: DENIES: Dysuria, Urgency, Frequency - REPRODUCTIVE LMP: 06-21-17 Reproductive: DENIES: : - MUSCULOSKELETAL Musculoskeletal: REPORTS: Extremity pain - R hand/ arm Past Medical History - Social History Smoking Status: Never Smoker Family History: Reviewed & Not Pertinent, CVA Patient has suicidal ideation: No Patient has homicidal ideation: No - Past Medical History Cardiac Medical History: Comment Only: Hx Hypertension - KEN SYNDROME/murmur Pulmonary Medical History: Denies: Hx Asthma Renal/ Medical History: Reports: Hx Ovarian Cysts. Denies: Hx Peritoneal Dialysis Musculoskeltal Medical History: Reports Hx Musculoskeletal Trauma Skin Medical History: Reports Hx Eczema Psychiatric Medical History: Reports: Hx Anxiety, Hx Attention Deficit Hyperactivity Disorder, Hx Depression - & anxiety Past Surgical History: Reports: Hx Cholecystectomy, Hx Gynecologic Surgery - d&C , Hx Orthopedic Surgery - left knee, Hx Tonsillectomy - Immunizations Immunizations up to date: Yes Hx Diphtheria, Pertussis, Tetanus Vaccination: Yes Vertical Provider Document - CONSTITUTIONAL Agree With Documented VS: Yes Notes: PHYSICAL EXAM GENERAL: Alert, interacts well. EXTREMITIES: Moves all 4 extremities spontaneously with guarding of the right thumb. Mild bruising along the base and across the palm of the right hand but full range of motion in all digits. Cap refill less than 2 seconds in all upper extremity digits. Wrist full range of motion nontender. No edema, radial pulses 2/4 bilaterally. No cyanosis. NEUROLOGICAL: Alert and oriented x4. Normal speech. PSYCH: Normal affect, normal mood. SKIN: Warm, dry, normal turgor. No rashes or lesions noted. - INFECTION CONTROL TRAVEL OUTSIDE OF THE [place] IN LAST 30 DAYS: No - RESPIRATORY O2 Sat by Pulse Oximetry: 100 Course - Re-evaluation Re-evalutation: 07/26/17 23:01 Patient is a 21-year-old female is hemodynamically stable, no acute distress. No evidence of a dislocation, or fracture on exam and imaging. Vitals wnl. At this time, I do not see an indication for labs or further imaging. Will discharge with conservative measures, return precautions, and follow-up recommendations. - Vital Signs Vital signs: Temp Pulse Resp BP Pulse Ox 98.2 F 94 16 115/68 100 07/26/17 20:48 07/26/17 20:48 07/26/17 20:48 07/26/17 20:48 07/26/17 20:48 - Diagnostic Test Radiology reviewed: Image reviewed, Reports reviewed Discharge - Discharge Clinical Impression: Hand injury Qualifiers: Encounter type: initial encounter Laterality: right Qualified Code(s): S69.91XA - Unspecified injury of right wrist, hand and finger(s), initial encounter Condition: Good Disposition: HOME, SELF-CARE Instructions: Contusion ([facility]), Use of [id number] Ibuprofen ([facility]), Ice & Elevation ([facility]) Referrals: SHIN CLARK NP-C [Primary Care Provider] - Follow up as needed
[2017-07-26 23:34] VITALS: BP 108/61
== END 2017-07-26 23:25 | disposition home or self-care (01) ==
LOC: ER 20:38
DX: S69.91XA Unspecified injury of right wrist, hand and finger(s), initial encounter (principal); W20.8XXA Other cause of strike by thrown, projected or falling object, initial encounter; Z90.49 Acquired absence of other specified parts of digestive tract
CPT/HCPCS: 99283; 73130; J3490

== ENCOUNTER 2017-09-29 15:45 | Emergency (ER) | payer MEDICAID ==
[2017-09-29] MEDS ORDERED: ACETAMINOPHEN 325 MG TABLET PO ONE (16:00)
[2017-09-29] MEDS ORDERED: METOCLOPRAMIDE HCL INJ/PF 10 MG/2 ML SDV IV ONE (16:00)
[2017-09-29] MEDS ORDERED: DIPHENHYDRAMINE HCL 50 MG/ML VIAL IV ONE (16:00)
--- NOTE | 2017-09-29 16:03 | ER Document Report ---
ED General - General Chief Complaint: Headache, Worst Ever Stated Complaint: SEVERE HEADACHES/ NUMBNESS ON LT SIDE Time Seen by Provider: 09/29/17 15:55 Mode of Arrival: Ambulatory Information source: Patient Notes: 21-year-old female presents with 1 week duration of generalized headache. 14 week Patient notes it has been gradual worsening over the past 2-3 days. She notes only left facial numbness. She denies any weakness or other neurological deficits. Patient denies any trauma Patient notes she has had headaches before TRAVEL OUTSIDE OF THE [place] IN LAST 30 DAYS: No - HPI Onset: Last week Onset/Duration: Intermittent Quality of pain: Pressure Severity: Moderate Pain Level: 2 Associated symptoms: Headache Exacerbated by: Denies Relieved by: Denies Similar symptoms previously: No Recently seen / treated by doctor: No - Related Data Allergies/Adverse Reactions: azithromycin [From Zithromax Z-Mark] Allergy (Mild, Verified 09/29/17 15:48) rash adhesive [Adhesive] Allergy (Verified 09/29/17 15:48) codeine [Codeine] Allergy (Verified 09/29/17 15:48) ITCHING, HIVES latex [Latex] Allergy (Verified 09/29/17 15:48) morphine [Morphine] Allergy (Verified 09/29/17 15:48) ITCHING, HIVES Past Medical History - Social History Smoking Status: Never Smoker Cigarette use (# per day): No Chew tobacco use (# tins/day): No Smoking Education Provided: No Family History: Reviewed & Not Pertinent, CVA - Past Medical History Cardiac Medical History: Comment Only: Hx Hypertension - KEN SYNDROME/murmur Pulmonary Medical History: Denies: Hx Asthma Renal/ Medical History: Reports: Hx Ovarian Cysts. Denies: Hx Peritoneal Dialysis Musculoskeltal Medical History: Reports Hx Musculoskeletal Trauma Skin Medical History: Reports Hx Eczema Psychiatric Medical History: Reports: Hx Anxiety, Hx Attention Deficit Hyperactivity Disorder, Hx Depression - & anxiety Past Surgical History: Reports: Hx Cholecystectomy, Hx Gynecologic Surgery - d&C , Hx Orthopedic Surgery - left knee, Hx Tonsillectomy - Immunizations Immunizations up to date: Yes Hx Diphtheria, Pertussis, Tetanus Vaccination: Yes Review of Systems - Review of Systems Notes: REVIEW OF SYSTEMS: CONSTITUTIONAL : Denies fever, chills, or sweats. Denies recent illness. EENT: Denies eye, ear, throat, or mouth pain or symptoms. Denies nasal or sinus congestion or discharge. Denies throat, tongue, or mouth swelling or difficulty swallowing. CARDIOVASCULAR: Denies chest pain. Denies palpitations or racing or irregular heart beat. Denies ankle edema. RESPIRATORY: Denies cough, cold, or chest congestion. Denies shortness of breath, difficulty breathing, or wheezing. GASTROINTESTINAL: Denies abdominal pain or distention. Denies nausea, vomiting , or diarrhea. Denies blood in vomitus, stools, or per rectum. Denies black, tarry stools. Denies constipation. GENITOURINARY: Denies difficulty urinating, painful urination, burning, frequency, blood in urine, or discharge. FEMALE GENITOURINARY: Denies vaginal bleeding, heavy or abnormal periods, irregular periods. Denies vaginal discharge or odor. MUSCULOSKELETAL: Denies back or neck pain or stiffness. Denies joint pain or swelling. SKIN: Denies rash, lesions or sores. HEMATOLOGIC : Denies easy bruising or bleeding. LYMPHATIC: Denies swollen, enlarged glands. NEUROLOGICAL: Admits to headache PSYCHIATRIC: Denies anxiety or stress. Denies depression, suicidal ideation, or homicidal ideation. ALL OTHER SYSTEMS REVIEWED AND NEGATIVE. PHYSICAL EXAMINATION: GENERAL: Well-appearing, well-nourished and in no acute distress. HEAD: Atraumatic, normocephalic. EYES: Pupils equal round and reactive to light, extraocular movements intact, conjunctiva are normal. ENT: Nares patent, oropharynx clear without exudates. Moist mucous membranes. NECK: Normal range of motion, supple without lymphadenopathy LUNGS: Breath sounds clear to auscultation bilaterally and equal. No wheezes rales or rhonchi. HEART: Regular rate and rhythm without murmurs ABDOMEN: Soft, nontender, nondistended abdomen. No guarding, no rebound. No masses appreciated. Female : deferred Musculoskeletal: Normal range of motion, no pitting or edema. No cyanosis. NEUROLOGICAL: Cranial nerves grossly intact. Normal speech, normal gait. Normal sensory, motor exams except for subjective paresthesia of the left cheek PSYCH: Normal mood, normal affect. SKIN: Warm, Dry, normal turgor, no rashes or lesions noted. Dictation was performed using [employer] voice recognition software Physical Exam - Vital signs Vitals: Resp Pulse Ox 16 100 09/29/17 16:07 03/14/18 16:07 Course - Re-evaluation Re-evalutation: 09/29/17 16:02 Patient's neurological exam is quite benign she looks quite well, patient will be treated for a headache limited medication since she is CT was immediately ordered, I did discuss the use of lumbar puncture if CT was normal patient is already deferring on this, I talked about risks and benefits and will readdress this again 09/29/17 16:28 Patient's heart rate suddenly went to 150s 160s, patient notes that she does have a history of anxiety EKG was performed initially was believe she was in SVT now appears to be in sinus tachycardia 09/29/17 16:43 Patient's heart rate has improved to 120s, no intervention was performed IV fluids will be started 09/29/17 18:03 Patient's heart rate has improved to 97 after fluids, she is in no distress she is no longer anxious well-appearing and is stable for discharge she has had no abdominal pain no pelvic pain I spoke with the patient at length in regards to having a lumbar puncture performed. Pt was told the risks and benefits of the procedure in length. I do not believe the patient should leave without the LP being performed but the patient is alert oriented x4, understands the risks and benefits of staying and leaving including disability and . Pt understands that she can return at any time for further care and is more than welcome to do so. After performing a Medical Screening Examination, I estimate there is LOW risk for ACUTE GLAUCOMA, TEMPORAL ARTERITIS, MENINGITIS, INCRANIAL HEMORRHAGE, or ISCHEMIC STROKE thus I consider the discharge disposition reasonable. I have reevaluated this patient multiple times and no significant life threatening changes are noted. The patient and I have discussed the diagnosis and risks, and we agree with discharging home with close follow-up with the understanding that symptoms and presentations can change. We also discussed returning to the Emergency Department immediately if new or worsening symptoms occur. We have discussed the symptoms which are most concerning (e.g., changing or worsening symptoms, new numbness or weakness, vomiting, fever) that necessitate immediate return. - Vital Signs Vital signs: Temp Pulse Resp BP Pulse Ox 15 100 09/29/17 17:01 09/29/17 17:01 - Laboratory Result Diagrams: 09/29/17 16:10 09/29/17 16:10 Laboratory results interpreted by me: 09/29/17 09/29/17 09/29/17 16:10 16:10 16:10 WBC 10.6 H RDW 16.3 H Glucose 73 L TSH 0.18 L - Diagnostic Test Radiology reviewed: Image reviewed - no acute abnormality , report given to patient, Reports reviewed Discharge - Discharge Clinical Impression: Anxiety Headache Qualifiers: Headache type: unspecified Headache chronicity pattern: acute headache Intractability: not intractable Qualified Code(s): R51 - Headache Medication reaction Qualifiers: Encounter type: initial encounter Qualified Code(s): T88.7XXA - Unspecified adverse effect of drug or medicament, initial encounter Condition: Stable Disposition: HOME, SELF-CARE Instructions: Headache ([facility]) Referrals: [facility] [Provider Group] - Follow up tomorrow
--- NOTE | 2017-09-29 16:08 | RADIOLOGY REPORT (SQ) ---
EXAM DESCRIPTION: CT HEAD WITHOUT COMPLETED DATE/TIME: 09/29/2017 3:56 pm REASON FOR STUDY: headache, facial numbness and left arm numbness COMPARISON: None. TECHNIQUE: Axial images acquired through the brain without intravenous contrast. Images reviewed wi th bone, brain and subdural windows. Images stored on PACS. All CT scanners at this facility use dose modulation, iterative reconstruction, and/or weight based d osing when appropriate to reduce radiation dose to as low as reasonably achievable (ALARA). [facility]: Dose Right [facility]: CareDose [facility]: Dose Right [facility]: Teradose 4D [facility]: Medio RADIATION DOSE: mGy. LIMITATIONS: None. FINDINGS: VENTRICLES: There is some prominence of the ventricular system. CEREBRUM: No masses. No hemorrhage. No midline shift. No evidence for acute infarction. Normal gra y/white matter differentiation. No areas of low density in the white matter. CEREBELLUM: No masses. No hemorrhage. No alteration of density. No evidence for acute infarction. EXTRAAXIAL SPACES: No fluid collections. No masses. ORBITS AND GLOBE: No intra- or extraconal masses. Normal contour of globe without masses. CALVARIUM: No fracture. PARANASAL SINUSES: No fluid or mucosal thickening. SOFT TISSUES: No mass or hematoma. OTHER: No other significant finding. IMPRESSION: There is some prominence of the ventricular system. No other significant intracranial a bnormalities were identified. Other findings as noted above EVIDENCE OF ACUTE STROKE: NO. COMMENT: Quality ID # [id number]: Final reports with documentation of one or more dose reduction techniques (e.g., Automated exposure control, adjustment of the mA and/or kV according to patient size, use of iterative reconstruction technique) TECHNICAL DOCUMENTATION: JOB ID: [id number] [employer]- All Rights Reserved Reading location - IP/workstation name: [email or web address]
[2017-09-29] MEDS ORDERED: NORMAL SALINE 1000 ML 1,000 ML IV PRN (16:35)
[2017-09-29 16:52] LABS: ABSOLUTE EOSINOPHILS # (AUTO) 0.1 10^3/uL (0.0-0.6); ABSOLUTE LYMPHOCYTES (AUTO) 1.7 10^3/uL (0.5-4.7); ABSOLUTE MONOCYTES (AUTO) 0.8 10^3/uL (0.1-1.4); BASOPHILS % (AUTO) 0.5 % (0-2); EOSINOPHILS % (AUTO) 0.5 % (0-6); HEMATOCRIT 38.3 % (36.0-47.0); HEMOGLOBIN 12.7 g/dL (12.0-15.5); LYMPHOCYTES % (AUTO) 16.1 % (13-45); MEAN CORPUSCULAR HEMOGLOBIN 27.7 pg (27.0-33.4); MEAN CORPUSCULAR HGB CONC 33.1 g/dL (32.0-36.0); MEAN CORPUSCULAR VOLUME 84 fl (80-97); MONOCYTES % (AUTO) 7.4 % (3-13); PLATELET COUNT 294 10^3/uL (150-450); RED BLOOD COUNT 4.57 10^6/uL (3.72-5.28); RED CELL DISTRIBUTION WIDTH 16.3 % (11.5-14.0); SEGMENTED NEUTROPHILS % (AUTO) 75.5 % (42-78); TOTAL CELLS COUNTED % (AUTO) 100 %; WHITE BLOOD COUNT 10.6 10^3/uL (4.0-10.5)
[2017-09-29 16:57] LABS: ALANINE AMINOTRANSFERASE 20 U/L (9-52); ALBUMIN 4.4 g/dL (3.5-5.0); ALKALINE PHOSPHATASE 50 U/L (38-126); ANION GAP 10 (5-19); ASPARTATE AMINO TRANSFERASE 34 U/L (14-36); BILIRUBIN,DIRECT 0.4 mg/dL (0.0-0.4); BILIRUBIN,TOTAL 0.9 mg/dL (0.2-1.3); BLOOD UREA NITROGEN 7 mg/dL (7-20); CALCIUM 9.8 mg/dL (8.4-10.2); CARBON DIOXIDE 24 mmol/L (22-30); CHLORIDE 106 mmol/L (98-107); GLUCOSE 73 mg/dL (75-110); POTASSIUM 3.6 mmol/L (3.6-5.0); SODIUM 140.2 mmol/L (137-145); TOTAL PROTEIN 7.8 g/dL (6.3-8.2)
[2017-09-29 18:14] VITALS: BP 113/70
--- NOTE | 2017-09-29 18:42 | EKG REPORT ---
SEVERITY:- ABNORMAL ECG - SINUS TACHYCARDIA BRAULIO, CONSIDER BIATRIAL ABNORMALITIES CONSIDER RIGHT VENTRICULAR HYPERTROPHY INFERIOR Q WAVES, PROBABLY NORMAL VARIATION BORDERLINE ST DEPRESSION, LATERAL LEADS : Confirmed by: Giovanny Brito MD 29-Sep-2017 18:41:55
== END 2017-09-29 18:14 | disposition home or self-care (01) ==
LOC: ER 15:45
DX: O99.341 Other mental disorders complicating pregnancy, first trimester (principal); O99.351 Diseases of the nervous system complicating pregnancy, first trimester; O16.1 Unspecified maternal hypertension, first trimester; F41.9 Anxiety disorder, unspecified; Z3A.14 14 weeks gestation of pregnancy
CPT/HCPCS: 93005; 99284; 96361; 96374; 96375; 36415; 83735; 84443; 85025; 80053; 70450; 93010; J3490; J1200; J2765; J7030

== ENCOUNTER 2018-01-26 22:58 | Inpatient (IN) | payer MEDICAID ==
[2018-01-26 23:59] LABS: APPEARANCE,URINE SLIGHTLY-CLOUDY; BILIRUBIN,URINE NEGATIVE (NEGATIVE); COLOR,URINE YELLOW; GLUCOSE, URINE NEGATIVE (NEGATIVE); KETONES,URINE NEGATIVE (NEGATIVE); LEUKOCYTE ESTERASE,URINE MODERATE (NEGATIVE); NITRITE,URINE NEGATIVE (NEGATIVE); PROTEIN,URINE NEGATIVE (NEGATIVE); URINE SPECIFIC GRAVITY 1.017
[2018-01-27 00:04] LABS: AMNISURE (ROM) NEGATIVE (NEGATIVE)
[2018-01-27 00:26] LABS: URINE AMPHETAMINES SCREEN NEGATIVE; URINE BARBITURATES SCREEN NEGATIVE; URINE BENZODIAZEPINES SCREEN NEGATIVE; URINE COCAINE SCREEN NEGATIVE; URINE MARIJUANA (THC) SCREEN NEGATIVE; URINE METHADONE SCREEN NEGATIVE; URINE PHENCYCLIDINE SCREEN NEGATIVE
--- NOTE | 2018-01-27 00:51 | RADIOLOGY REPORT (SQ) ---
EXAM DESCRIPTION: US LIMITED COMPLETED DATE/TME: 01/26/2018 00:00 CLINICAL HISTORY: 22 years, Female, cx length, placenta location eval for abruption, abd pain COMPARISON: None. TECHNIQUE/LIMITATIONS: Targeted obstetrical ultrasound for desired parameters. FINDINGS: Cervical length of 2.9 cm and closed. position: Vertex. GENOVEVA: 14.9 cm and clear. heart rate: 189 bpm. Placental location: Anterior. There is a 3.5 cm hyperechoic focus with small internal cystic structure involving the inferior aspect of the placenta. Mild rounding of the placental borders. No definite retroplacental hematoma. IMPRESSION: 1. heart rate of 189 bpm compatible with tachycardia. 2. There is mild rounding of the placental wall border and an anechoic area in the inferior aspect of the placenta. These findings could be seen with but are not diagnostic for placental abruption. 2011 [employer]- All Rights Reserved
[2018-01-27] MEDS ORDERED: ONDANSETRON 4 MG TAB.RAPDIS ONE (01:23)
[2018-01-27] MEDS ORDERED: ONDANSETRON 4 MG TAB.RAPDIS PO PRN (01:29)
[2018-01-27 01:55] LABS: INTERNATIONAL RATION (INR) 0.94; PROTHROMBIN TIME 13.1 SEC (11.4-15.4)
[2018-01-27 01:56] LABS: FIBRINOGEN 382 mg/dL (209-497); PARTIAL THROMBOPLASTIN TIME 29.8 SEC (23.5-35.8)
[2018-01-27 02:15] LABS: ABSOLUTE BASOPHILS # (AUTO) 0.1 10^3/uL (0.0-0.2); ABSOLUTE LYMPHOCYTES (AUTO) 1.8 10^3/uL (0.5-4.7); ABSOLUTE MONOCYTES (AUTO) 0.9 10^3/uL (0.1-1.4); ABSOLUTE NEUT (AUTO) 8.9 10^3/uL (1.7-8.2); BASOPHILS % (AUTO) 0.5 % (0-2); EOSINOPHILS % (AUTO) 0.3 % (0-6); HEMATOCRIT 30.8 % (36.0-47.0); HEMOGLOBIN 10.3 g/dL (12.0-15.5); LYMPHOCYTES % (AUTO) 15.6 % (13-45); MEAN CORPUSCULAR HEMOGLOBIN 27.3 pg (27.0-33.4); MEAN CORPUSCULAR HGB CONC 33.5 g/dL (32.0-36.0); MEAN CORPUSCULAR VOLUME 82 fl (80-97); MONOCYTES % (AUTO) 7.4 % (3-13); PLATELET COUNT 284 10^3/uL (150-450); RED BLOOD COUNT 3.77 10^6/uL (3.72-5.28); RED CELL DISTRIBUTION WIDTH 13.9 % (11.5-14.0); SEGMENTED NEUTROPHILS % (AUTO) 76.2 % (42-78); TOTAL CELLS COUNTED % (AUTO) 100 %; WHITE BLOOD COUNT 11.7 10^3/uL (4.0-10.5)
[2018-01-27 07:15] LABS: FETAL RBC COUNT 0
[2018-01-27 07:20] LABS: KB INTERPRETATION NEGATIVE (NEGATIVE)
[2018-01-27] MEDS ORDERED: BETAMET ACET/BETAMET NA INJ 6 MG/1 ML ONE (07:26)
--- NOTE | 2018-01-27 07:37 | Admission Physical ---
Datetime Report Generated by CPN: 01/27/2018 07:36 CURRENT ADMISSION Chief Complaint: Trauma/Fall Chief Complaint Other: Fall up the stairs on her abdomen Indication for Induction- Other: None Admit Impression : , Intrauterine ; Observation/Evaluation Admit Impression- Other: CL of 2.9, questionable hypoechoic areas on placenta. Possible areas of calcification Admit Plan: Admit to Unit; Observation/Evaluation Admit Plan- Other: ACS protocol ALLERGIES Medication Allergies: Yes Medication Allergies: morphine/ITCHING, HIVES (01/27/2018); codeine/ITCHING, HIVES (01/27/2018); adhesive (01/27/2018); azithromycin/DC/rash (01/27/2018); metoclopramide (01/27/2018); latex (01/27/2018) Latex: Latex Allergies Food Allergies: N/A Environmental Allergies: N/A OBSTETRICAL HISTORY EDC: 03/28/2018 00:00 : 5 Para: 1 Term: 1 : 0 SAB: 3 IAB: 0 Ectopic: 0 Livin Cesareans: 0 VBACs: 0 Multiple Births: 0 Gestational Diabetes: No Rh Sensitization: No Incompetent Cervix: No ALLI: No Infertility: No ART Treatment: No Uterine Anomaly: No IUGR: No Hx Previous C/S: No Macrosomia: No Hx Loss/Stillborn: No PIH: No Hx : No Placenta Previa/Abruption: No Depression/PP Depression: Yes PTL/PROM: No Post Hemorrhage: No Current Procedures: Ultrasound; NST Obstetrical History Comments: G1- 2013 G2- 2013 G3- 2015, 39 weeks, 7lbs 6oz G4- 2016, D_C G5- current SEE RECORDS Alcohol: No Marijuana : No Cocaine: No Other Illicit Drugs: No Cigarettes: Never Smoker. [id number] MEDICAL HISTORY Diabetes: No Blood Transfusion: No Pulmonary Disease (Asthma, TB): No Breast Disease: No Hypertension: No [employer] Surgery: Yes Heart Disease: Yes Hosp/Surgery: Yes Autoimmune Disorder: Yes Anesthetic Complications: No Kidney Disease: No Abnormal Pap Smear: No Neuro/Epilepsy: No Psychiatric Disorders: Yes Other Medical Diseases: No Hepatitis/Liver Disease: No Significant Family History: No Varicosities/Phlebitis: No Trauma/Violence : No Thyroid Dysfunction: Yes Medical History Comments: POTS, D_C, appendectomy, hyperthyroidism, anxiety, Quinten-Danlos syndrome, heart murmur, depression, syncope, tachycardia with workup at [place] for possible stroke, HSV, pulmonary stenosis- cleared by [facility] for vaginal delivery INFECTIOUS HISTORY Gonorrhea: No Genital Herpes: Yes Chlamydia: No Tuberculosis: No Syphilis: No Hepatitis: No HIV/AIDS Exposure: No Rash or Viral Illness: No HPV: No PHYSICAL EXAM General: Normal HEENT: Normal Neurologic: Normal Thyroid: Normal Heart: Normal Lungs: Normal Breast: Normal Back: Normal Abdomen: Normal Genitourinary Exam: Normal Extremities: Normal DTRs: Normal Pelvic Type: Adequate Vital Signs: Reviewed VAGINAL EXAM Dilatation: 0 Effacement: 0 Station: -4 MEMBRANES Pooling: Negative Membranes: Intact FETUS A EGA: 31.3 Monitoring: External US FHR- Baseline: 120 Variability: Moderate 6-25bpm Accelerations: 15X15 Decelerations: None FHR Category: Category I Estimated Weight (gm): 1700 Presentation: Vertex Admit Comment: will observe and complete ACS protocol. PLANS FOR LABOR AND DELIVERY Labor and Delivery: None Pain Management: None Circumcision: N/A INFORMED CONSENT Signature: with User ID: [email or web address]
--- NOTE | 2018-01-27 12:17 | RADIOLOGY REPORT (SQ) ---
EXAM DESCRIPTION: U/S OB LIMITED COMPLETED DATE/TIME: 01/27/2018 11:47 am REASON FOR STUDY: reeval placenta, s/p fall, compare to prior COMPARISON: 01/27/2018 TECHNIQUE: Limited transabdominal grayscale ultrasound for evaluation of specific requested obstetri ruy parameters. LIMITATIONS: None. FINDINGS: CERVICAL LENGTH: 3.6 cm Closed. GENOVEVA: 15.4 cm. FHR: 131 beats per minute. PRESENTATION: Cephalic. OTHER: The previously described hypoechoic area with surrounding echogenic borders within the placent a is again identified measuring 3.4 x 4.2 x 2.9 cm on the current study. Again the findings could be seen with but are not definitely diagnostic for placental abruption. Clinical correlation and furth er followup is recommended IMPRESSION: Placental findings as noted above. Clinical correlation and if clinically warranted fol lowup is recommended. Other findings as noted above. Trimester of : Third trimester - 28 weeks to delivery. TECHNICAL DOCUMENTATION: JOB ID: [id number] [employer]- All Rights Reserved Reading location - IP/workstation name: [email or web address]
[2018-01-27 14:20] LABS: T.VAGINALIS (WET MOUNT) NO TRICHOMONAS SEEN
[2018-01-27 14:21] LABS: RBCS (WET MOUNT) FEW RBCS SEEN; WBCS (WET MOUNT) 2+ WBCS SEEN; YEAST (WET MOUNT) NO YEAST SEEN
[2018-01-27 14:22] LABS: AMNISURE (ROM) NEGATIVE (NEGATIVE)
[2018-01-27] MEDS ORDERED: ACETAMINOPHEN 325 MG TABLET ONE (14:59)
[2018-01-27] MEDS ORDERED: ACETAMINOPHEN 325 MG TABLET PO ONE (15:02)
[2018-01-27 15:47] LABS: CHLAM PCR NOT DETECTED (NOT DETECT); GON PCR NOT DETECTED (NOT DETECT)
--- NOTE | 2018-01-27 17:21 | L&D Progress Notes ---
PROGRESS NOTES Datetime Report Generated by ROSALIE: 01/27/2018 17:21 PROGRESS NOTE Impression Other: s/w MFM Procedures: Sterile Speculum Exam Plan: Continue Present Management Informed Consent Obtained: Risks, Benefits and Alternatives Discussed Vital Signs : Reviewed Comment: here for monitoring after fall. KB negative. Labs negative. US at admission noted 3.5cm hyperechoic focus with small internal cystic structure involving the inferior aspect of the placenta. - no definite retroplacental hematoma. Pt reports leaking yellow fluid - SSE negative for SROM. Amnisure negative. GC/CT negative. wet prep negative. No yeast. Cvx closed. Repeat US with 3.4c x 4.2cm x 2.9cm hypoechoic area 3.4 x 4.2 x 2.9cm - findings could be seen but not definitive for abruption. No ctx. No vaginal bleeding. All reviewed with Dr. Arnold. BMZ given at approx 0700 this am and will repeat tomorrow on 01/28. Reviewed with patient plan to continue to monitor. If remains stable over next 48-72 hours with rest then may go home. Dr. Arnold recommended monitoring at least over weekend. She is scheduled for appt with MFM on 7/18. for now will transfer to the floor with Q shift NST/monitoring VAGINAL EXAM Dilatation: 0 Effacement: 0 Station: -4 MEMBRANES Pooling: Negative Membranes: Intact FETUS A Monitoring: External US : 31.3 Estimated Weight (gm): 1700 Presentation: Vertex SIGNATURE SIGNATURE: [id number];[id number] SIGNATURE: [id number] Signature: with User ID: [email or web address]
[2018-01-27] MEDS: ACETAMINOPHEN 325 MG TABLET PO PRN (23:27)
[2018-01-27 23:40] LABS: AMNISURE (ROM) NEGATIVE (NEGATIVE)
[2018-01-28] MEDS ORDERED: BETAMET ACET/BETAMET NA INJ 6 MG/1 ML IM SCH (08:00)
--- NOTE | 2018-01-28 09:23 | PDOC PROGRESS REPORT ---
Subjective Progress Note for:: 01/28/18 Reason For Visit: 23 HOUR OBSERVATION Physical Exam - Physical Exam Vital Signs: Temp Pulse Resp BP Pulse Ox 97.8 F 73 16 107/49 L 99 01/28/18 07:40 01/28/18 07:40 01/28/18 07:40 01/28/18 07:40 01/28/18 07:40 Intake & Output 01/27/18 01/28/18 01/29/18 06:59 06:59 06:59 Weight 71.5 kg General appearance: PRESENT: mild distress Respiratory exam: PRESENT: clear to auscultation marah GI/Abdominal exam: PRESENT: soft Result Laboratory Results: 01/27/18 02:00 Impressions: Obstetrics Ultrasound 01/27/18 10:57 IMPRESSION: Placental findings as noted above. Clinical correlation and if clinically warranted followup is recommended. Other findings as noted above. Trimester of : Third trimester - 28 weeks to delivery. Assessment & Plan - Diagnosis (2) Fall as cause of accidental injury at home as place of occurrence Is this a current diagnosis for this admission?: Yes - Time Time Spent with patient: Less than 15 minutes Medications reviewed and adjusted accordingly: Yes Anticipated discharge: Other Disposition: continue to follow and complete steroids.. If no further extension of the abruption we plan to discharge on Wednesday.
--- NOTE | 2018-01-28 10:46 | RADIOLOGY REPORT (SQ) ---
EXAM DESCRIPTION: U/S OB LIMITED COMPLETED DATE/TIME: 01/28/2018 10:24 am REASON FOR STUDY: REEVAL PLANCENTA, ABRUPTION COMPARISON: 01/27/2013 TECHNIQUE: Limited transabdominal grayscale ultrasound for evaluation of specific requested obstetri ury parameters. LIMITATIONS: None. FINDINGS: FHR: 136 beats per minute. PRESENTATION: Cephalic. OTHER: The previously described hypoechoic area with surrounding echogenic border within the placenta is again identified measuring 4.3 x 2.7 x 4.1 cm on the current study. Positive blood flow is ident ified. Again the findings could be seen with but are not definitely diagnostic for a placental abrup tion. Clinical correlation and if clinically warranted further followup is recommended IMPRESSION: Placental findings as noted above. Clinical correlation if clinically warranted further followup is recommended. Other findings as noted above. Trimester of : Third trimester - 28 weeks to delivery. TECHNICAL DOCUMENTATION: JOB ID: [id number] [employer]- All Rights Reserved Reading location - IP/workstation name: [email or web address]
[2018-01-28 16:36] LABS: AMNISURE (ROM) NEGATIVE (NEGATIVE)
--- NOTE | 2018-01-29 09:11 | PDOC PROGRESS REPORT ---
Subjective Progress Note for:: 01/29/18 Subjective:: reports last night had uterine irritability but at this time is resolved. reports good fm. no vb, lof. she had negative fern and check yesterday. stable on ultrasound abruption. patient otherwise without any further POTS episode. NST this morning Non-reactive. await report for this afternoon. Reason For Visit: 23 HOUR OBSERVATION Physical Exam - Physical Exam Vital Signs: Temp Pulse Resp BP Pulse Ox 98.2 F 89 18 119/58 L 100 01/29/18 08:21 01/29/18 08:21 01/29/18 08:21 01/29/18 08:21 01/29/18 08:21 Intake & Output 01/28/18 01/29/18 01/30/18 06:59 06:59 06:59 Intake Total 1500 Balance 1500 General appearance: PRESENT: no acute distress Head exam: PRESENT: atraumatic Mouth exam: PRESENT: moist GI/Abdominal exam: PRESENT: soft, other - gravid Gentrourinary exam: PRESENT: other - deferred at this time. Neurological exam: PRESENT: alert, altered, awake Result Laboratory Results: 01/27/18 02:00 Heartbeat/NST: Non-reactive 140s - 10x10 once. Plan on repeat later today Impressions: Obstetrics Ultrasound 01/28/18 00:00 IMPRESSION: Placental findings as noted above. Clinical correlation if clinically warranted further followup is recommended. Other findings as noted above. Trimester of : Third trimester - 28 weeks to delivery. Assessment & Plan - Diagnosis (2) Fall as cause of accidental injury at home as place of occurrence Is this a current diagnosis for this admission?: Yes (3) POTS (postural orthostatic tachycardia syndrome) Is this a current diagnosis for this admission?: Yes Plan: [facility] following from [place] symptomatic control - stable (4) Quinten-Danlos syndrome Is this a current diagnosis for this admission?: Yes Plan: stable (5) Placental abruption in third trimester Is this a current diagnosis for this admission?: Yes Plan: NST twice daily nonreactive this morning. plan repeat after lunch if nonreactive check BPP - recheck on abruption
[2018-01-29] MEDS: ACETAMINOPHEN 325 MG TABLET PO PRN ×2 (14:34→21:57)
[2018-01-30] MEDS: ACETAMINOPHEN 325 MG TABLET PO PRN (09:08)
--- NOTE | 2018-01-30 11:07 | PDOC PROGRESS REPORT ---
Subjective Progress Note for:: 01/30/18 Subjective:: pt states she is sore all over but is better Reason For Visit: 23 HOUR OBSERVATION Physical Exam - Physical Exam Vital Signs: Temp Pulse Resp BP Pulse Ox 98.6 F 74 18 117/57 L 100 01/30/18 04:02 01/30/18 04:02 01/30/18 04:02 01/30/18 04:02 01/30/18 04:02 Intake & Output 01/29/18 01/30/18 01/31/18 06:59 06:59 06:59 Intake Total 1500 1150 Balance 1500 1150 General appearance: PRESENT: no acute distress GI/Abdominal exam: PRESENT: soft Neurological exam: PRESENT: alert Result Laboratory Results: 01/27/18 02:00 Impressions: Obstetrics Ultrasound 01/28/18 00:00 IMPRESSION: Placental findings as noted above. Clinical correlation if clinically warranted further followup is recommended. Other findings as noted above. Trimester of : Third trimester - 28 weeks to delivery. Assessment & Plan - Diagnosis (2) Fall as cause of accidental injury at home as place of occurrence Is this a current diagnosis for this admission?: Yes (3) Placental abruption in third trimester Is this a current diagnosis for this admission?: Yes - Time Time Spent with patient: Less than 15 minutes Medications reviewed and adjusted accordingly: Yes Anticipated discharge: Home Within: within 24 hours - repeat US in am and discharge if no further extension
[2018-01-30 15:45] LABS: AMNISURE (ROM) NEGATIVE (NEGATIVE)
--- NOTE | 2018-01-31 09:56 | PDOC PROGRESS REPORT ---
Subjective-OB Progress Note for:: 01/31/18 Subjective: Just back from ultrasound, mild cramping, no bleeding Physical Exam (OB) Vital Signs: Temp Pulse Resp BP Pulse Ox 98.0 F 70 20 112/55 L 99 01/31/18 07:44 01/31/18 07:44 01/31/18 07:44 01/31/18 07:44 01/31/18 07:44 Intake & Output 01/30/18 01/31/18 02/01/18 06:59 06:59 06:59 Intake Total 1150 1240 Balance 1150 1240 - Abdomen Hernia Present: No Objective-Diagnostic Laboratory: 01/27/18 02:00 Assessment and Plan(PN) - Assessment and Plan (1) Quinten-Danlos syndrome Is this a current diagnosis for this admission?: Yes (2) Fall (on) (from) unspecified stairs and steps, initial encounter Is this a current diagnosis for this admission?: Yes (3) POTS (postural orthostatic tachycardia syndrome) Is this a current diagnosis for this admission?: Yes (4) Placental abruption in third trimester Is this a current diagnosis for this admission?: Yes - Time Spent with Patient Time with patient: Less than 15 minutes Medications reviewed and adjusted accordingly: Yes - Disposition Anticipated Discharge: Home Within: within 24 hours - to be seen today by Dr. Dumont
--- NOTE | 2018-01-31 10:08 | RADIOLOGY REPORT (SQ) ---
EXAM DESCRIPTION: U/S OB LIMITED COMPLETED DATE/TIME: 01/31/2018 9:23 am REASON FOR STUDY: well being and assess size of placental novak COMPARISON: 01/27/2018 and 01/28/2018 TECHNIQUE: Limited transabdominal grayscale ultrasound for evaluation of specific requested obstetri ruy parameters. LIMITATIONS: None. FINDINGS: CERVICAL LENGTH: 4.0 cm Closed. GENOVEVA: 11.4 cm. FHR: 135 beats per minute. PRESENTATION: Cephalic. OTHER: No change in the previously described placental finding. As on the prior examination, a 4.8 x 4.6 x 3.5 cm hypoechoic area with a central cystic component within the placenta. There are surrou nding echogenic borders. Blood flow demonstrated. IMPRESSION: 1. LIMITED OBSTETRICAL ULTRASOUND WITH MEASURED PARAMETERS DELINEATED ABOVE. 2. No change in the placental findings as detailed above. Trimester of : Third trimester - 28 weeks to delivery. TECHNICAL DOCUMENTATION: JOB ID: [id number] [employer]- All Rights Reserved Reading location - IP/workstation name: [email or web address]
--- NOTE | 2018-01-31 12:19 | PDOC DISCHARGE SUMMARY ---
General - Admit/Disc Date/PCP Admission Date/Primary Care Provider: 01/27/18 01:08 Discharge Date: 01/31/18 - Discharge Diagnosis (1) Fall (on) (from) unspecified stairs and steps, initial encounter Is this a current diagnosis for this admission?: Yes (2) Fall as cause of accidental injury at home as place of occurrence Is this a current diagnosis for this admission?: Yes (3) POTS (postural orthostatic tachycardia syndrome) Is this a current diagnosis for this admission?: Yes - Additional Information Resuscitation Status: Full Code Home Medications: Prenat 115/Iron Fum/Folic/Dss [ 19 Tablet] 1 tab PO DAILY 01/27/18 History of Present Illness History of Present Illness: SAMUEL BENTLEY is a 22 year old female admitted for ACS prototcol due to fall on abdomen @ approximately 31 wks ega. She has undergone ACS protocol. She has undergone several tests and evals for claims of LOF. All amnisure and fern testing is negative. Her GENOVEVA is 11.4 cm today. All sonos have been reviewed and patient's placenta has remained stable with no progress of hypoechoic area. She indicates no bleeding and states that her tenderness is resolved. Hospital Course Hospital Course: see above in HPI Physical Exam - Physical Exam Vital Signs: Temp Pulse Resp BP Pulse Ox 98.0 F 70 20 112/55 L 99 01/31/18 07:44 01/31/18 07:44 01/31/18 07:44 01/31/18 07:44 01/31/18 07:44 Intake & Output 01/30/18 01/31/18 02/01/18 06:59 06:59 06:59 Intake Total 1150 1240 Balance 1150 1240 General appearance: PRESENT: no acute distress, cooperative GI/Abdominal exam: PRESENT: soft - nontender and gravid - Obstetrical Exam Fundal Height: 1/u - 2/u Tender: No Result Laboratory Results: 01/27/18 02:00 Heartbeat/NST: Non-reactive 140s - 10x10 once. Plan on repeat later today Impressions: Obstetrics Ultrasound 01/31/18 00:00 IMPRESSION: 1. LIMITED OBSTETRICAL ULTRASOUND WITH MEASURED PARAMETERS DELINEATED ABOVE. 2. No change in the placental findings as detailed above. Trimester of : Third trimester - 28 weeks to delivery. Status: Image reviewed by me Plan Discharge Plan: discharge home with strict precautions and to have follow up in office later this week. voices understanding. Time Spent: Less than 30 Minutes
[2018-01-31 12:57] VITALS: BP 117/77
== END 2018-01-31 13:26 | disposition home or self-care (01) | DRG 781 ==
LOC: LC 22:58 → LR 23:11 → OBSVTOIN 01-27 01:08 → INTOOBSV 01-27 01:08 → UNDOADMOB 01-27 01:08 → LR 01-27 01:08 → 2S 01-27 19:41 → LR 01-27 19:41 → UNDODISOB 01-31 13:26
PROVIDERS: ADMIT Obstetrics & Gynecology; ATTEND Obstetrics & Gynecology
DX: O45.93 Premature separation of placenta, unspecified, third trimester (principal); O99.283 Endocrine, nutritional and metabolic diseases complicating pregnancy, third trimester; Q79.6 Ehlers-Danlos syndromes; E05.90 Thyrotoxicosis, unspecified without thyrotoxic crisis or storm; R00.0 Tachycardia, unspecified; W10.9XXA Fall (on) (from) unspecified stairs and steps, initial encounter; Y93.89 Activity, other specified; Y92.098 Other place in other non-institutional residence as the place of occurrence of the external cause; Z3A.31 31 weeks gestation of pregnancy
CPT/HCPCS: 36415; 59025; 76815; 80307; 81005; 84112; 85025; 85384; 85460; 85610; 85730; 86592; 86850; 86900; 86901; 87210; 87491; 87591; J0702; Q0114; S0119

== ENCOUNTER 2018-02-15 12:28 | Outpatient (CLI) | payer MEDICAID ==
[2018-02-15 13:26] LABS: APPEARANCE,URINE SLIGHTLY-CLOUDY; BILIRUBIN,URINE NEGATIVE (NEGATIVE); COLOR,URINE DARK YELLOW; GLUCOSE, URINE NEGATIVE (NEGATIVE); KETONES,URINE TRACE mg/dL (NEGATIVE); LEUKOCYTE ESTERASE,URINE SMALL (NEGATIVE); NITRITE,URINE NEGATIVE (NEGATIVE); PROTEIN,URINE 30 mg/dL (NEGATIVE); URINE SPECIFIC GRAVITY 1.024
[2018-02-15 13:43] LABS: URINE AMPHETAMINES SCREEN NEGATIVE; URINE BARBITURATES SCREEN NEGATIVE; URINE BENZODIAZEPINES SCREEN NEGATIVE; URINE COCAINE SCREEN NEGATIVE; URINE MARIJUANA (THC) SCREEN NEGATIVE; URINE METHADONE SCREEN NEGATIVE; URINE PHENCYCLIDINE SCREEN NEGATIVE
--- NOTE | 2018-02-15 13:50 | Non Stress Test Report ---
Non Stress Test Datetime Report Generated by CPN: 02/15/2018 13:50 DEMOGRAPHIC EGA NST: 34.1 INDICATION Indication for Study: Other Indication for Study (NST) Other: LC VITAL SIGNS Temperature - NST: 98.8 MONITORING Monitor Explained: Monitor Explained; Test Explained; Patient Verbalized Understanding Monitor Explained Other: patient Time on Monitor: 02/15/2018 12:50 Time off Monitor: 02/15/2018 13:40 NST Duration: 50 NST INTERVENTIONS NST Interventions: PO Hydration; Reposition Patient Physician Notified NST: J. Saldaña CNM BABY A: [id number] BABY A Movement : Present Contraction Frequency : 0 FHR Baseline : 135 Accelerations : 15X15 Decelerations : None Variability : Moderate 6-25bpm NST Review: Meets Criteria for Reactive NST NST Review and Verified By : Johnathan Carl RN NST Results: Reactive NST REPORT Report Trigger: Send Report
[2018-02-15 14:00] LABS: BACTERIA (WET MOUNT) 4+ BACTERIA SEEN; T.VAGINALIS (WET MOUNT) NO TRICHOMONAS SEEN; WBCS (WET MOUNT) FEW WBCS SEEN; YEAST (WET MOUNT) NO YEAST SEEN
[2018-02-15 15:32] LABS: CHLAM PCR NOT DETECTED (NOT DETECT); GON PCR NOT DETECTED (NOT DETECT)
== END 2018-02-15 14:04 | disposition home or self-care (01) ==
LOC: LC 12:28
PROVIDERS: ATTEND Obstetrics & Gynecology
PROC: 4A1HXCZ Monitoring of Products of Conception, Cardiac Rate, External Approach (ICD-10-PCS; principal; 2018-02-15)
DX: O99.283 Endocrine, nutritional and metabolic diseases complicating pregnancy, third trimester (principal); E86.0 Dehydration; Z3A.34 34 weeks gestation of pregnancy
CPT/HCPCS: 59025; 80307; 81001; 87210; 87491; 87591

== ENCOUNTER 2018-02-17 18:55 | Observation (INO) | payer MEDICAID ==
[2018-02-17 19:38] LABS: APPEARANCE,URINE CLOUDY; BILIRUBIN,URINE SMALL (NEGATIVE); COLOR,URINE AMBER; GLUCOSE, URINE NEGATIVE (NEGATIVE); KETONES,URINE TRACE mg/dL (NEGATIVE); LEUKOCYTE ESTERASE,URINE MODERATE (NEGATIVE); NITRITE,URINE NEGATIVE (NEGATIVE); PROTEIN,URINE 30 mg/dL (NEGATIVE); URINE SPECIFIC GRAVITY 1.025
[2018-02-17 19:49] LABS: URINE AMPHETAMINES SCREEN NEGATIVE; URINE BARBITURATES SCREEN NEGATIVE; URINE BENZODIAZEPINES SCREEN NEGATIVE; URINE COCAINE SCREEN NEGATIVE; URINE MARIJUANA (THC) SCREEN NEGATIVE; URINE METHADONE SCREEN NEGATIVE; URINE PHENCYCLIDINE SCREEN NEGATIVE
[2018-02-17 21:15] LABS: ALANINE AMINOTRANSFERASE 24 U/L (9-52); ALBUMIN 3.2 g/dL (3.5-5.0); ALKALINE PHOSPHATASE 119 U/L (38-126); ASPARTATE AMINO TRANSFERASE 18 U/L (14-36); BILIRUBIN,DIRECT 0.2 mg/dL (0.0-0.4); BILIRUBIN,TOTAL 0.8 mg/dL (0.2-1.3); TOTAL PROTEIN 6.1 g/dL (6.3-8.2)
[2018-02-18 10:01] LABS: ABSOLUTE EOSINOPHILS # (AUTO) 0.1 10^3/uL (0.0-0.6); ABSOLUTE LYMPHOCYTES (AUTO) 1.6 10^3/uL (0.5-4.7); ABSOLUTE MONOCYTES (AUTO) 0.7 10^3/uL (0.1-1.4); ABSOLUTE NEUT (AUTO) 6.6 10^3/uL (1.7-8.2); BASOPHILS % (AUTO) 0.5 % (0-2); EOSINOPHILS % (AUTO) 0.6 % (0-6); HEMATOCRIT 26.7 % (36.0-47.0); HEMOGLOBIN 8.9 g/dL (12.0-15.5); LYMPHOCYTES % (AUTO) 17.6 % (13-45); MEAN CORPUSCULAR HEMOGLOBIN 26.6 pg (27.0-33.4); MEAN CORPUSCULAR HGB CONC 33.2 g/dL (32.0-36.0); MEAN CORPUSCULAR VOLUME 80 fl (80-97); MONOCYTES % (AUTO) 7.7 % (3-13); PLATELET COUNT 219 10^3/uL (150-450); RED BLOOD COUNT 3.33 10^6/uL (3.72-5.28); RED CELL DISTRIBUTION WIDTH 14.5 % (11.5-14.0); SEGMENTED NEUTROPHILS % (AUTO) 73.6 % (42-78); TOTAL CELLS COUNTED % (AUTO) 100 %; WHITE BLOOD COUNT 8.9 10^3/uL (4.0-10.5)
--- NOTE | 2018-02-18 11:16 | PDOC PROGRESS REPORT ---
Subjective Progress Note for:: 02/18/18 Subjective:: complaing of fundal pain that is 2/5 and radiates downward, denies dysuria/ frequency/urgency. Reason For Visit: 23 HOUR OBS AT 34.3 WKS GESTATION FOR UPPER RIGHT Physical Exam - Physical Exam Vital Signs: Temp Pulse Resp BP Pulse Ox 98.4 F 75 16 107/57 L 100 02/18/18 08:04 02/18/18 08:04 02/18/18 08:04 02/18/18 08:04 02/18/18 08:04 Intake & Output 02/17/18 02/18/18 02/19/18 06:59 06:59 06:59 Intake Total 200 Balance 200 Weight 73.1 kg General appearance: PRESENT: no acute distress - smiling, lying inbed in no acute distress, cooperative GI/Abdominal exam: PRESENT: guarding - no, tenderness - nontender to palpation Gentrourinary exam: PRESENT: other - cx closed - Obstetrical Exam External Genitalia: normal Vagina: normal Dilation (cm): 0 Station: -4 Tender: No Adhexa: not examined Result Laboratory Results: 02/18/18 09:40 02/17/18 02/17/18 02/18/18 19:11 20:49 09:40 WBC 8.9 RBC 3.33 L Hgb 8.9 L Hct 26.7 L MCV 80 MCH 26.6 L MCHC 33.2 RDW 14.5 H Plt Count 219 Seg Neutrophils % 73.6 Lymphocytes % 17.6 Monocytes % 7.7 Eosinophils % 0.6 Basophils % 0.5 Absolute Neutrophils 6.6 Absolute Lymphocytes 1.6 Absolute Monocytes 0.7 Absolute Eosinophils 0.1 Absolute Basophils 0.0 Total Bilirubin 0.8 AST 18 ALT 24 Alkaline Phosphatase 119 Total Protein 6.1 L Albumin 3.2 L Urine Color ABDULLAHI Urine Appearance CLOUDY Urine pH 5.0 Ur Specific [place] 1.025 Urine Protein 30 H Urine Glucose (UA) NEGATIVE Urine Ketones TRACE H Urine Blood NEGATIVE Urine Nitrite NEGATIVE Ur Leukocyte Esterase MODERATE H Urine WBC (Auto) 8 Urine RBC (Auto) 1 Assessment & Plan - Diagnosis (1) with 34 completed weeks gestation Is this a current diagnosis for this admission?: Yes - Time Time Spent with patient: Less than 15 minutes Anticipated discharge: Home Within: within 24 hours - discussed plan with Dr Gilmore. Dr Gilmore to see and examine pt prior to discharge
--- NOTE | 2018-02-18 12:59 | RADIOLOGY REPORT (SQ) ---
EXAM DESCRIPTION: U/S OB LIMITED COMPLETED DATE/TIME: 02/18/2018 12:36 pm REASON FOR STUDY: pt with fundal pain and nttp, h/o cyst on placenta COMPARISON: 01/31/2018 01/28/2018 01/27/2018 TECHNIQUE: Limited transabdominal grayscale ultrasound for evaluation of specific requested obstetri ruy parameters. LIMITATIONS: None. FINDINGS: CERVICAL LENGTH: Not measured. Closed. GENOVEVA: 12.8 cm. FHR: 139 beats per minute. PRESENTATION: Cephalic. OTHER: Grade 2-3 placenta. Once again a small cystic area seen within the placenta. IMPRESSION: Limited obstetrical ultrasound with measured parameters as described above. Mature plac enta. Trimester of : Third trimester - 28 weeks to delivery. TECHNICAL DOCUMENTATION: JOB ID: [id number] [employer]- All Rights Reserved Reading location - IP/workstation name: [email or web address]
[2018-02-18 15:26] LABS: HEMATOCRIT 31.8 % (36.0-47.0); HEMOGLOBIN 10.5 g/dL (12.0-15.5); MEAN CORPUSCULAR HEMOGLOBIN 26.6 pg (27.0-33.4); MEAN CORPUSCULAR HGB CONC 33.1 g/dL (32.0-36.0); MEAN CORPUSCULAR VOLUME 80 fl (80-97); PLATELET COUNT 246 10^3/uL (150-450); RED BLOOD COUNT 3.97 10^6/uL (3.72-5.28); RED CELL DISTRIBUTION WIDTH 14.5 % (11.5-14.0); WHITE BLOOD COUNT 9.2 10^3/uL (4.0-10.5)
[2018-02-18 15:42] LABS: ALANINE AMINOTRANSFERASE 23 U/L (9-52); ALBUMIN 3.5 g/dL (3.5-5.0); ALKALINE PHOSPHATASE 134 U/L (38-126); AMYLASE 48 U/L (30-110); ANION GAP 12 (5-19); ASPARTATE AMINO TRANSFERASE 19 U/L (14-36); BILIRUBIN,DIRECT 0.2 mg/dL (0.0-0.4); BLOOD UREA NITROGEN 4 mg/dL (7-20); CALCIUM 9.3 mg/dL (8.4-10.2); CARBON DIOXIDE 20 mmol/L (22-30); CHLORIDE 108 mmol/L (98-107); CREATINE KINASE 34 U/L (30-135); GLUCOSE 81 mg/dL (75-110); LIPASE 49.6 U/L (23-300); SODIUM 139.7 mmol/L (137-145); TOTAL PROTEIN 6.5 g/dL (6.3-8.2); URIC ACID 3.8 mg/dL (2.5-6.2)
--- NOTE | 2018-02-18 15:42 | RADIOLOGY REPORT (SQ) ---
EXAM DESCRIPTION: CHEST SINGLE VIEW COMPLETED DATE/TIME: 02/18/2018 3:22 pm REASON FOR STUDY: tacycardia, dyspnea, atypical chest pain COMPARISON: Chest films 10/22/2010, 05/14/2017 CT angio chest 12/30/2016 EXAM PARAMETERS: NUMBER OF VIEWS: One view. TECHNIQUE: Single frontal radiographic view of the chest acquired. Abdomen and pelvis was shielded d uring the exposure. RADIATION DOSE: NA LIMITATIONS: None. FINDINGS: LUNGS AND PLEURA: No opacities, masses or pneumothorax. No pleural effusion. MEDIASTINUM AND HILAR STRUCTURES: No masses. Contour normal. HEART AND VASCULAR STRUCTURES: Heart normal in size. Normal vasculature. BONES: No acute findings. HARDWARE: None in the chest. OTHER: No other significant finding. IMPRESSION: NO ACUTE RADIOGRAPHIC FINDING IN THE CHEST. TECHNICAL DOCUMENTATION: JOB ID: [id number] [employer]- All Rights Reserved Reading location - IP/workstation name: [email or web address]
[2018-02-18 16:01] LABS: APPEARANCE,URINE CLEAR; BILIRUBIN,URINE NEGATIVE (NEGATIVE); COLOR,URINE STRAW; GLUCOSE, URINE NEGATIVE (NEGATIVE); KETONES,URINE 20 mg/dL (NEGATIVE); LEUKOCYTE ESTERASE,URINE NEGATIVE (NEGATIVE); NITRITE,URINE NEGATIVE (NEGATIVE); PROTEIN,URINE NEGATIVE (NEGATIVE); URINE SPECIFIC GRAVITY 1.002; UROBILINOGEN,URINE NEGATIVE mg/dL (<2.0)
[2018-02-18] MEDS ORDERED: BUSPIRONE HCL 10 MG TABLET PO PRN (16:40)
[2018-02-18] MEDS ORDERED: MAG HYDROX/AL HYDROX/SIMETH SUSP 30 ML UDCUP PO PRN (16:56)
--- NOTE | 2018-02-18 17:17 | PDOC CONSULTATION ---
Consultation Consult Date: 02/18/18 Attending physician:: CARLIE OLSEN Consult reason:: Tachycardia, HTN, Dyspnea, ABD Pain History of Present Illness Admission Date/PCP: 02/17/18 21:37 Patient complains of: RUQ ABD pain, 34 weeks EGA History of Present Illness: SAMUEL BENTLEY is a 22 year old female with a with a past medical history significant for Quinten-Danlos syndrome, POTS, and anxiety who was admitted by the [facility] service for right upper quadrant pain. The patient is approximately 34 weeks . S[employer] AND S[facility] W[facility] ST[facility]ER was preparing to discharge the patient after determining that the patient was not in labor and that there was little concern for preeclampsia when the patient suddenly became diaphoretic, tremulous, tachycardic (heart rate 132), and hypertensive (blood pressure 150s/70s). She then became nauseated with 2 or 3 episodes of emesis. The patient continues to report intermittent right upper quadrant abdominal pain described as stabbing it is not especially worsened by food, mobility, or palpitation. She denies alleviating factors. The pain does radiate to her right flank. She reports a headache with blurred vision; right eye greater than left. Of note, the patient has a history of anxiety disorder and panic attacks with similar symptoms. Her current symptoms different from her typical panic attacks with regard to headache, blurred vision, and abdominal pain. Hospitalist service was consulted for evaluation and management of tachycardia, hypertension, and concern for atypical chest pain. Past Medical History Cardiac Medical History: Comment Only: Hypertension - KEN SYNDROME/murmur Pulmonary Medical History: Reports: None Denies: Asthma EENT Medical History: Reports: None Neurological Medical History: Reports: None Endocrine Medical History: Reports: None Renal/ Medical History: Reports: None Malignancy Medical History: Reports: None GI Medical History: Reports: None Musculoskeltal Medical History: Reports: None Skin Medical History: Reports: None, Eczema Psychiatric Medical History: Reports: Attention Deficit Hyperactivity Disorder, Depression, General Anxiety Disorder Traumatic Medical History: Reports: None Hematology: Reports: Anemia Denies: Sickle Cell Disease Infectious Medical History: Reports: None Past Surgical History Past Surgical History: Reports: Cholecystectomy, Orthopedic Surgery - left knee , Tonsillectomy Denies: Amputation Social History Information Source: Patient Lives with: Family Smoking Status: Never Smoker Frequency of Alcohol Use: None Hx Recreational Drug Use: No Drugs: None Hx Prescription Drug Abuse: No - Advance Directive Resuscitation Status: Full Code Family History Family History: Reviewed & Not Pertinent, CVA, Hyperlipidemia, Hypertension, Other - Lupus, MS Parental Family History Reviewed: Yes Children Family History Reviewed: Yes Sibling(s) Family History Reviewed.: Yes Medication/Allergy Home Medications: Prenat 115/Iron Fum/Folic/Dss [ 19 Tablet] 1 tab PO DAILY 01/27/18 Allergies/Adverse Reactions: azithromycin [From Zithromax Z-Mark] Allergy (Mild, Verified 02/15/18 14:09) rash adhesive [Adhesive] Allergy (Verified 02/15/18 14:09) codeine [Codeine] Allergy (Verified 02/15/18 14:09) ITCHING, HIVES latex [Latex] Allergy (Verified 02/15/18 14:09) metoclopramide [From Reglan] Allergy (Verified 02/15/18 14:09) morphine [Morphine] Allergy (Verified 02/15/18 14:09) ITCHING, HIVES diphenhydramine [From Benadryl] Adverse Reaction (Verified 02/17/18 19:29) Tachycardia Review of Systems Constitutional: PRESENT: chills, headache(s). ABSENT: fever(s), weight gain, weight loss Eyes: PRESENT: visual disturbances Ears: ABSENT: hearing changes Cardiovascular: PRESENT: palpitations. ABSENT: chest pain, dyspnea on exertion , edema, orthropnea Respiratory: ABSENT: cough, hemoptysis Gastrointestinal: PRESENT: abdominal pain, nausea, vomiting. ABSENT: coffee ground emesis, constipation, diarrhea, hematemesis, hematochezia Genitourinary: ABSENT: dysuria, hematuria Musculoskeletal: ABSENT: joint swelling Integumentary: ABSENT: rash, wounds Neurological: ABSENT: abnormal gait, abnormal speech, confusion, dizziness, focal weakness, syncope Psychiatric: ABSENT: anxiety, depression, homidical ideation, suicidal ideation Endocrine: ABSENT: cold intolerance, heat intolerance, polydipsia, polyuria Hematologic/Lymphatic: ABSENT: easy bleeding, easy bruising Physical Exam Vital Signs: Temp Pulse Resp BP Pulse Ox 98.5 F 131 H 16 133/76 H 100 02/18/18 11:28 02/18/18 14:28 02/18/18 14:28 02/18/18 14:28 02/18/18 14:20 Intake & Output 02/17/18 02/18/18 02/19/18 06:59 06:59 06:59 Intake Total 200 Balance 200 Weight 73.1 kg General appearance: PRESENT: no acute distress, cooperative, well-developed, well-nourished Head exam: PRESENT: atraumatic, normocephalic Eye exam: PRESENT: conjunctiva pink, EOMI, PERRLA. ABSENT: scleral icterus Ear exam: PRESENT: normal external ear exam Mouth exam: PRESENT: moist, tongue midline Neck exam: ABSENT: carotid bruit, JVD, lymphadenopathy, thyromegaly Respiratory exam: PRESENT: clear to auscultation marah, symmetrical, unlabored. ABSENT: rales, rhonchi, wheezes Cardiovascular exam: PRESENT: +S1, +S2, tachycardia. ABSENT: diastolic murmur, rubs, systolic murmur Pulses: PRESENT: normal dorsalis pedis pul Vascular exam: PRESENT: normal capillary refill GI/Abdominal exam: PRESENT: normal bowel sounds, soft, tenderness - Right upper quadrant/flank, other - . ABSENT: distended, guarding, mass, organolmegaly, rebound Rectal exam: PRESENT: deferred Extremities exam: PRESENT: full ROM. ABSENT: calf tenderness, clubbing, pedal edema Neurological exam: PRESENT: alert, awake, oriented to person, oriented to place , oriented to time, oriented to situation, CN II-XII grossly intact. ABSENT: motor sensory deficit Psychiatric exam: PRESENT: anxious, appropriate affect, normal mood. ABSENT: homicidal ideation, suicidal ideation Skin exam: PRESENT: dry, intact, warm. ABSENT: cyanosis, rash Results Laboratory Results: 02/18/18 15:15 02/18/18 15:15 02/17/18 02/17/18 02/18/18 19:11 20:49 09:40 WBC 8.9 RBC 3.33 L Hgb 8.9 L Hct 26.7 L MCV 80 MCH 26.6 L MCHC 33.2 RDW 14.5 H Plt Count 219 Seg Neutrophils % 73.6 Lymphocytes % 17.6 Monocytes % 7.7 Eosinophils % 0.6 Basophils % 0.5 Absolute Neutrophils 6.6 Absolute Lymphocytes 1.6 Absolute Monocytes 0.7 Absolute Eosinophils 0.1 Absolute Basophils 0.0 Sodium Potassium Chloride Carbon Dioxide Anion Gap BUN Creatinine Est GFR ( Amer) Est GFR (Non-Af Amer) Glucose Uric Acid Calcium Total Bilirubin 0.8 AST 18 ALT 24 Alkaline Phosphatase 119 Total Protein 6.1 L Albumin 3.2 L Amylase Lipase Urine Color ABDULLAHI Urine Appearance CLOUDY Urine pH 5.0 Ur Specific [place] 1.025 Urine Protein 30 H Urine Glucose (UA) NEGATIVE Urine Ketones TRACE H Urine Blood NEGATIVE Urine Nitrite NEGATIVE Ur Leukocyte Esterase MODERATE H Urine WBC (Auto) 8 Urine RBC (Auto) 1 02/18/18 02/18/18 02/18/18 15:15 15:15 15:40 WBC 9.2 RBC 3.97 Hgb 10.5 L Hct 31.8 L MCV 80 MCH 26.6 L MCHC 33.1 RDW 14.5 H Plt Count 246 Seg Neutrophils % Lymphocytes % Monocytes % Eosinophils % Basophils % Absolute Neutrophils Absolute Lymphocytes Absolute Monocytes Absolute Eosinophils Absolute Basophils Sodium 139.7 Potassium 4.0 Chloride 108 H Carbon Dioxide 20 L Anion Gap 12 BUN 4 L Creatinine 0.51 L Est GFR ( Amer) > 60 Est GFR (Non-Af Amer) > 60 Glucose 81 Uric Acid 3.8 Calcium 9.3 Total Bilirubin 1.0 AST 19 ALT 23 Alkaline Phosphatase 134 H Total Protein 6.5 Albumin 3.5 Amylase 48 Lipase 49.6 Urine Color STRAW Urine Appearance CLEAR Urine pH 7.0 Ur Specific [place] 1.002 Urine Protein NEGATIVE Urine Glucose (UA) NEGATIVE Urine Ketones 20 H Urine Blood NEGATIVE Urine Nitrite NEGATIVE Ur Leukocyte Esterase NEGATIVE Urine WBC (Auto) 0 Urine RBC (Auto) 0 02/18/18 02/18/18 15:15 15:15 Creatine Kinase 34 Troponin I < 0.012 Impressions: Chest X-Ray 02/18/18 00:00 IMPRESSION: NO ACUTE RADIOGRAPHIC FINDING IN THE CHEST. Obstetrics Ultrasound 02/18/18 00:00 IMPRESSION: Limited obstetrical ultrasound with measured parameters as described above. Mature placenta. Trimester of : Third trimester - 28 weeks to delivery. Assessment & Plan - Diagnosis (1) Tachycardia Is this a current diagnosis for this admission?: Yes Plan: While ambulating, the patient became diaphoretic with a headache and blurred vision. She was escorted back to her room and vital signs were checked by nursing staff; found to have a heart rate in the 130s. Likely related to anxiety, pain, n/v. Low suspicion for ACS. HEART score 2/low score (st depression and family hx). During my assessment, her HR trended down to 102 but was noted to increase when asked about her current symptoms. EKG demonstrated sinus tachycardia with borderline right axis deviation and ST depression in diffuse leads. Initial troponin is negative. Chest x-ray is benign. Remaining laboratory evaluation is unremarkable. The patient will be transferred to the medical floor on continuous cardiac telemetry. This was discussed with the [facility] [employer] [facility] service to endorse this plan for continued monitoring. We will trend troponins. We will obtain echocardiogram. Repeat EKG in the morning. Will monitor orthostatic blood pressures. Discussed with nursing staff the importance of reducing stimulation and anxiety ; as needed BuSpar is available. (2) Hypertension Is this a current diagnosis for this admission?: Yes Plan: The patient has had one elevated pressure of 150/70; this was noted during an abdominal pain, nausea with vomiting episode. Without medications for pain, anxiety, heart rate or hypertension, her blood pressure trended down to 120s/70s by the end of my assessment. Cardiac workup as above. [facility] [employer] [facility] [facility] is evaluating for preeclampsia. (3) Abdominal pain Qualifiers: Abdominal location: right upper quadrant Qualified Code(s): R10.11 - Right upper quadrant pain Is this a current diagnosis for this admission?: Yes Plan: Unclear etiology; CBC is unremarkable other than baseline anemia, chemistry and LFTs are normal, lipase is normal. Acute hepatitis and pancreatitis ruled out. The patient reports history of cholecystectomy. The patient reports that the pain radiates to her right flank; repeat urinalysis is negative for blood so low suspicion for renal stones. Chest x-ray is normal. Pain may be related to abdominal discomfort from uterus, GERD, PUD, gastroenteritis or psychosomatic symptom related to anxiety/panic disorder. We will trial Maalox every 4 hours as needed. Consider right upper quadrant ultrasound. Remaining plan as above. (4) Nausea and vomiting Qualifiers: Vomiting Intractability: non-intractable Is this a current diagnosis for this admission?: Yes (5) Anxiety Is this a current diagnosis for this admission?: Yes Plan: History of anxiety and panic disorder; patient reports that she has not been on medications previously. She reports that her symptoms today are similar to previous panic attacks other than the headache, blurred vision, and abdominal pain. Discussed with [facility] [employer] [facility] [facility]; will start BuSpar every 8 hours as needed. Consider psychiatric consultation. We will consult discharge planning; patient may benefit from social services coordinator support. (6) with 34 completed weeks gestation Is this a current diagnosis for this admission?: Yes Plan: Primary plan per [facility] [employer] [facility]. (7) Quinten-Danlos syndrome Is this a current diagnosis for this admission?: No Plan: Patient reports a history of EDS; and confirmed per [employer] [facility]. Due to reported history; will obtain echocardiogram. (8) POTS (postural orthostatic tachycardia syndrome) Is this a current diagnosis for this admission?: Yes Plan: Patient is monitored on cardiac telemetry. We will obtain orthostatic blood pressures every shift. Fall precautions. - Time Time Spent: 50 to 70 Minutes Medications reviewed and adjusted accordingly: Yes Anticipated discharge: Home
[2018-02-18 18:04] LABS: FREE T4 (FREE THYROXINE) 1.3 ng/dL (0.78-2.19)
--- NOTE | 2018-02-18 18:17 | EKG REPORT ---
SEVERITY:- ABNORMAL ECG - SINUS TACHYCARDIA BORDERLINE RIGHT AXIS DEVIATION BORDERLINE ST DEPRESSION, DIFFUSE LEADS ABNORMAL T, CONSIDER ISCHEMIA, INFERIOR LEADS : Confirmed by: Whitley Arenas 18-Feb-2018 18:16:11
[2018-02-18 18:18] LABS: THYROID STIMULATING HORMONE 0.51 uIU/mL (0.47-4.68)
--- NOTE | 2018-02-18 19:41 | PDOC PROGRESS REPORT ---
Subjective Progress Note for:: 02/18/18 Subjective:: Brief note regarding days events Reason For Visit: 23 HOUR OBS AT 34.3 WKS GESTATION FOR UPPER RIGHT Physical Exam - Physical Exam Vital Signs: Temp Pulse Resp BP Pulse Ox 97.9 F 102 H 16 118/67 100 02/18/18 17:08 02/18/18 17:10 02/18/18 17:08 02/18/18 17:08 02/18/18 17:08 Intake & Output 02/17/18 02/18/18 02/19/18 06:59 06:59 06:59 Intake Total 200 Balance 200 Weight 73.1 kg General appearance: PRESENT: no acute distress, well-developed, well-nourished Head exam: PRESENT: atraumatic, normocephalic - Obstetrical Exam External Genitalia: normal Vagina: normal Station: -4 Adhexa: not examined Result Laboratory Results: 02/18/18 15:15 02/18/18 15:15 02/17/18 02/17/18 02/18/18 19:11 20:49 09:40 WBC 8.9 RBC 3.33 L Hgb 8.9 L Hct 26.7 L MCV 80 MCH 26.6 L MCHC 33.2 RDW 14.5 H Plt Count 219 Seg Neutrophils % 73.6 Lymphocytes % 17.6 Monocytes % 7.7 Eosinophils % 0.6 Basophils % 0.5 Absolute Neutrophils 6.6 Absolute Lymphocytes 1.6 Absolute Monocytes 0.7 Absolute Eosinophils 0.1 Absolute Basophils 0.0 Sodium Potassium Chloride Carbon Dioxide Anion Gap BUN Creatinine Est GFR ( Amer) Est GFR (Non-Af Amer) Glucose Uric Acid Calcium Magnesium Total Bilirubin 0.8 AST 18 ALT 24 Alkaline Phosphatase 119 Total Protein 6.1 L Albumin 3.2 L Amylase Lipase TSH Free T4 Urine Color ABDULLAHI Urine Appearance CLOUDY Urine pH 5.0 Ur Specific [place] 1.025 Urine Protein 30 H Urine Glucose (UA) NEGATIVE Urine Ketones TRACE H Urine Blood NEGATIVE Urine Nitrite NEGATIVE Ur Leukocyte Esterase MODERATE H Urine WBC (Auto) 8 Urine RBC (Auto) 1 02/18/18 02/18/18 02/18/18 15:15 15:15 15:15 WBC 9.2 RBC 3.97 Hgb 10.5 L Hct 31.8 L MCV 80 MCH 26.6 L MCHC 33.1 RDW 14.5 H Plt Count 246 Seg Neutrophils % Lymphocytes % Monocytes % Eosinophils % Basophils % Absolute Neutrophils Absolute Lymphocytes Absolute Monocytes Absolute Eosinophils Absolute Basophils Sodium 139.7 Potassium 4.0 Chloride 108 H Carbon Dioxide 20 L Anion Gap 12 BUN 4 L Creatinine 0.51 L Est GFR ( Amer) > 60 Est GFR (Non-Af Amer) > 60 Glucose 81 Uric Acid 3.8 Calcium 9.3 Magnesium 1.9 Total Bilirubin 1.0 AST 19 ALT 23 Alkaline Phosphatase 134 H Total Protein 6.5 Albumin 3.5 Amylase 48 Lipase 49.6 TSH Free T4 Urine Color Urine Appearance Urine pH Ur Specific [place] Urine Protein Urine Glucose (UA) Urine Ketones Urine Blood Urine Nitrite Ur Leukocyte Esterase Urine WBC (Auto) Urine RBC (Auto) 02/18/18 02/18/18 15:15 15:40 WBC RBC Hgb Hct MCV MCH MCHC RDW Plt Count Seg Neutrophils % Lymphocytes % Monocytes % Eosinophils % Basophils % Absolute Neutrophils Absolute Lymphocytes Absolute Monocytes Absolute Eosinophils Absolute Basophils Sodium Potassium Chloride Carbon Dioxide Anion Gap BUN Creatinine Est GFR ( Amer) Est GFR (Non-Af Amer) Glucose Uric Acid Calcium Magnesium Total Bilirubin AST ALT Alkaline Phosphatase Total Protein Albumin Amylase Lipase TSH 0.51 Free T4 1.30 Urine Color STRAW Urine Appearance CLEAR Urine pH 7.0 Ur Specific [place] 1.002 Urine Protein NEGATIVE Urine Glucose (UA) NEGATIVE Urine Ketones 20 H Urine Blood NEGATIVE Urine Nitrite NEGATIVE Ur Leukocyte Esterase NEGATIVE Urine WBC (Auto) 0 Urine RBC (Auto) 0 02/18/18 02/18/18 15:15 15:15 Creatine Kinase 34 Troponin I < 0.012 Impressions: Chest X-Ray 02/18/18 00:00 IMPRESSION: NO ACUTE RADIOGRAPHIC FINDING IN THE CHEST. Obstetrics Ultrasound 02/18/18 00:00 IMPRESSION: Limited obstetrical ultrasound with measured parameters as described above. Mature placenta. Trimester of : Third trimester - 28 weeks to delivery. Status: Imported from PACS Assessment & Plan - Diagnosis (1) with 34 completed weeks gestation Is this a current diagnosis for this admission?: Yes Plan: Pt with reports n/v/dizzy and lightheaded with 158/70 BP and HR at 129. Denies CP/SOB. No abdominal ttp on exam. PreE labs ordered. Hospitalist consult ordered. Appreciate Hospitalist assistance with patient. Patient to go to Tele for monitoring and Hospitalist considering getting ECHO. S/w MFM re: her US with stable placental eval. S/w FRANKIE re: her presentation on the floor as well and agreed with plan for monitor and eval with Hospitalist. NST reactive at time of event. Does not appear to have obstetric cause for the event today. - Time Time Spent with patient: 25-34 minutes Medications reviewed and adjusted accordingly: Yes Anticipated discharge: Home Within: within 48 hours - Inpatient Certification Based on my medical assessment, after consideration of the patient's comorbidities, presenting symptoms, or acuity I expect that the services needed warrant INPATIENT care.: Yes I certify that my determination is in accordance with my understanding of Medicare's requirements for reasonable and necessary INPATIENT services [42 CFR 412.3e].: Yes Medical Necessity: Need For Continuous Telemetry Monitoring, Risk of Complication if Not Cared For in Hospital Post Hospital 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
[2018-02-18] MEDS ORDERED: BUSPIRONE HCL 10 MG TABLET PO SCH (22:00)
[2018-02-19 06:09] LABS: HEMATOCRIT 28.1 % (36.0-47.0); HEMOGLOBIN 9.3 g/dL (12.0-15.5); MEAN CORPUSCULAR HEMOGLOBIN 26.4 pg (27.0-33.4); MEAN CORPUSCULAR VOLUME 80 fl (80-97); PLATELET COUNT 219 10^3/uL (150-450); RED BLOOD COUNT 3.52 10^6/uL (3.72-5.28); RED CELL DISTRIBUTION WIDTH 14.3 % (11.5-14.0); WHITE BLOOD COUNT 9.3 10^3/uL (4.0-10.5)
[2018-02-19 06:17] LABS: ANION GAP 7 (5-19); BLOOD UREA NITROGEN 5 mg/dL (7-20); CALCIUM 8.6 mg/dL (8.4-10.2); CARBON DIOXIDE 23 mmol/L (22-30); CHLORIDE 109 mmol/L (98-107); GLUCOSE 109 mg/dL (75-110); SODIUM 138.9 mmol/L (137-145)
--- NOTE | 2018-02-19 09:02 | PDOC PROGRESS REPORT ---
Subjective Progress Note for:: 02/19/18 Subjective:: Patient denies any obstetric complaints today - denies any vb, lof, contractions. Reports good FM. She reports she is still having intermittent : chest pain without radiation. No shortness of breath. Her blood pressures were improved from prior and she has not had any further episodes similar to yesterday afternoon. Reason For Visit: 23 HOUR OBS AT 34.3 WKS GESTATION FOR UPPER RIGHT Physical Exam - Physical Exam Vital Signs: Temp Pulse Resp BP Pulse Ox 98.2 F 89 14 106/59 L 100 02/19/18 08:08 02/19/18 08:08 02/19/18 08:08 02/19/18 08:08 02/19/18 08:08 Intake & Output 02/18/18 02/19/18 02/20/18 06:59 06:59 06:59 Intake Total 200 400 Balance 200 400 Weight 73.1 kg General appearance: PRESENT: no acute distress Head exam: PRESENT: atraumatic, normocephalic GI/Abdominal exam: PRESENT: soft, other - NONTENDER - GRAVID. Extremities exam: PRESENT: full ROM Neurological exam: PRESENT: alert, awake, oriented to person, oriented to place - NO FOCAL DEFICITS NOTED Psychiatric exam: PRESENT: normal mood - Obstetrical Exam External Genitalia: normal Vagina: normal Station: -4 Adhexa: not examined Result Laboratory Results: 02/19/18 05:57 02/19/18 05:57 02/18/18 02/18/18 02/18/18 09:40 15:15 15:15 WBC 8.9 9.2 RBC 3.33 L 3.97 Hgb 8.9 L 10.5 L Hct 26.7 L 31.8 L MCV 80 80 MCH 26.6 L 26.6 L MCHC 33.2 33.1 RDW 14.5 H 14.5 H Plt Count 219 246 Seg Neutrophils % 73.6 Lymphocytes % 17.6 Monocytes % 7.7 Eosinophils % 0.6 Basophils % 0.5 Absolute Neutrophils 6.6 Absolute Lymphocytes 1.6 Absolute Monocytes 0.7 Absolute Eosinophils 0.1 Absolute Basophils 0.0 Sodium 139.7 Potassium 4.0 Chloride 108 H Carbon Dioxide 20 L Anion Gap 12 BUN 4 L Creatinine 0.51 L Est GFR ( Amer) > 60 Est GFR (Non-Af Amer) > 60 Glucose 81 Uric Acid 3.8 Calcium 9.3 Magnesium Total Bilirubin 1.0 AST 19 ALT 23 Alkaline Phosphatase 134 H Total Protein 6.5 Albumin 3.5 Amylase 48 Lipase 49.6 TSH Free T4 Urine Color Urine Appearance Urine pH Ur Specific [place] Urine Protein Urine Glucose (UA) Urine Ketones Urine Blood Urine Nitrite Ur Leukocyte Esterase Urine WBC (Auto) Urine RBC (Auto) 02/18/18 02/18/18 02/18/18 15:15 15:15 15:40 WBC RBC Hgb Hct MCV MCH MCHC RDW Plt Count Seg Neutrophils % Lymphocytes % Monocytes % Eosinophils % Basophils % Absolute Neutrophils Absolute Lymphocytes Absolute Monocytes Absolute Eosinophils Absolute Basophils Sodium Potassium Chloride Carbon Dioxide Anion Gap BUN Creatinine Est GFR ( Amer) Est GFR (Non-Af Amer) Glucose Uric Acid Calcium Magnesium 1.9 Total Bilirubin AST ALT Alkaline Phosphatase Total Protein Albumin Amylase Lipase TSH 0.51 Free T4 1.30 Urine Color STRAW Urine Appearance CLEAR Urine pH 7.0 Ur Specific [place] 1.002 Urine Protein NEGATIVE Urine Glucose (UA) NEGATIVE Urine Ketones 20 H Urine Blood NEGATIVE Urine Nitrite NEGATIVE Ur Leukocyte Esterase NEGATIVE Urine WBC (Auto) 0 Urine RBC (Auto) 0 02/19/18 02/19/18 05:57 05:57 WBC 9.3 RBC 3.52 L Hgb 9.3 L Hct 28.1 L MCV 80 MCH 26.4 L MCHC 33.0 RDW 14.3 H Plt Count 219 Seg Neutrophils % Lymphocytes % Monocytes % Eosinophils % Basophils % Absolute Neutrophils Absolute Lymphocytes Absolute Monocytes Absolute Eosinophils Absolute Basophils Sodium 138.9 Potassium 4.0 Chloride 109 H Carbon Dioxide 23 Anion Gap 7 BUN 5 L Creatinine 0.50 L Est GFR ( Amer) > 60 Est GFR (Non-Af Amer) > 60 Glucose 109 Uric Acid Calcium 8.6 Magnesium Total Bilirubin AST ALT Alkaline Phosphatase Total Protein Albumin Amylase Lipase TSH Free T4 Urine Color Urine Appearance Urine pH Ur Specific [place] Urine Protein Urine Glucose (UA) Urine Ketones Urine Blood Urine Nitrite Ur Leukocyte Esterase Urine WBC (Auto) Urine RBC (Auto) 02/18/18 02/18/18 02/19/18 15:15 15:15 00:14 Creatine Kinase 34 Troponin I < 0.012 < 0.012 02/19/18 05:57 Creatine Kinase Troponin I < 0.012 Heartbeat/NST: NST CATEGORY 1 TODAY Impressions: Chest X-Ray 02/18/18 00:00 IMPRESSION: NO ACUTE RADIOGRAPHIC FINDING IN THE CHEST. Obstetrics Ultrasound 02/18/18 00:00 IMPRESSION: Limited obstetrical ultrasound with measured parameters as described above. Mature placenta. Trimester of : Third trimester - 28 weeks to delivery. Assessment & Plan - Diagnosis (1) with 34 completed weeks gestation Is this a current diagnosis for this admission?: Yes Plan: CONTINUE Q SHIFT NST TESTING WATCH FOR S/S OF LABOR (2) Tachycardia Is this a current diagnosis for this admission?: Yes Plan: WNL AT THIS TIME, PLAN FOR ECHO PER HOSPITALIST TEAM (3) Hypertension Is this a current diagnosis for this admission?: Yes Plan: IMPROVED KNOWN HISTORY OF POTS SERIAL BPS/VITALS SIGNS
--- NOTE | 2018-02-19 10:41 | EKG REPORT ---
SEVERITY:- BORDERLINE ECG - SINUS RHYTHM PROBABLE LEFT ATRIAL ABNORMALITY : Confirmed by: Whitley Arenas 19-Feb-2018 10:41:01
[2018-02-19 11:33] LABS: ABSOLUTE RETICS # 0.086 10^6/uL (0.028-0.122); RETICULOCYTE COUNT (AUTO) 2.42 % (0.66-2.85)
[2018-02-19 11:45] LABS: IRON(TIBC) 25.2 ug/dL (37-170)
--- NOTE | 2018-02-19 11:51 | Non Stress Test Report ---
Non Stress Test Datetime Report Generated by CPN: 02/19/2018 11:51 DEMOGRAPHIC EGA NST: 34.3 INDICATION Indication for Study: Ordered by Provider MONITORING Monitor Explained: Monitor Explained; Test Explained; Patient Verbalized Understanding Time on Monitor: 02/17/2018 19:06 Time off Monitor: 02/17/2018 21:44 NST Duration: 158 NST INTERVENTIONS NST Interventions: PO Hydration; Reposition Patient Physician Notified NST: Dr. Bahena BABY A: [id number] BABY A Movement : Present Contraction Frequency : 0 FHR Baseline : 130 Accelerations : 15X15 Decelerations : None Variability : Moderate 6-25bpm NST Review: Meets Criteria for Reactive NST NST Review and Verified By : YASMIN Neely Results: Reactive NST REPORT Report Trigger: Send Report
[2018-02-19 12:23] LABS: FERRITIN 5.02 ng/mL (6.2-137.0)
--- NOTE | 2018-02-19 15:21 | RADIOLOGY REPORT (SQ) ---
EXAM DESCRIPTION: CTA CHEST COMPLETED DATE/TIME: 02/19/2018 2:34 pm REASON FOR STUDY: tachycardia, atypical chest pain COMPARISON: None. TECHNIQUE: CT scan of the chest performed using helical scanning technique with dynamic intravenous contrast injection. Images reviewed with lung, soft tissue and bone windows. Reconstructed coronal and sagittal MPR images reviewed. Additional 3 dimensional post-processing performed to develop Maximal Intensity Projection images ([place] P). All images stored on PACS. All CT scanners at this facility use dose modulation, iterative reconstruction, and/or weight based d osing when appropriate to reduce radiation dose to as low as reasonably achievable (ALARA). [facility]: Dose Right [facility]: CareDose [facility]: Dose Right [facility]: Teradose 4D [facility]: Pudding Media CONTRAST TYPE AND DOSE: contrast/concentration: Isovue 350.00 mg/ml; Total Contrast Delivered: 71.0 ml; Total Saline Delivered: 80.0 ml Contrast bolus optimized for the pulmonary arteries. Not diagnostic for the aorta. RENAL FUNCTION: Creatinine: 0.5 . RADIATION DOSE: CT Rad equipment meets quality standard of care and radiation dose reduction techniq ues were employed. CTDIvol: 3.3 - 20.8 mGy. DLP: 635 mGy-cm. . LIMITATIONS: None. FINDINGS: LUNGS AND PLEURA: No infiltrates or effusions. No pulmonary nodules. AORTA AND GREAT VESSELS: No aneurysm. Contrast bolus not optimized for the aorta. No abnormality. PULMONARY ARTERIES: No abnormality. HILAR AND MEDIASTINAL STRUCTURES: No abnormality. UPPER ABDOMEN: Hepatic granuloma. Normal liver and spleen. THYROID AND OTHER SOFT TISSUES: No abnormality. BONES: No abnormality. 3D MIPS: Confirm above findings. IMPRESSION: NORMAL CTA OF THE CHEST. NO PULMONARY EMBOLI. COMMENT: Quality ID # [id number]: Final reports with documentation of one or more dose reduction techniques (e.g., Automated exposure control, adjustment of the mA and/or kV according to patient size, use of iterative reconstruction technique) TECHNICAL DOCUMENTATION: JOB ID: [id number] SC-[id number] 2010 [employer]- All Rights Reserved Reading location - IP/workstation name: [email or web address]
[2018-02-19 16:29] VITALS: BP 106/68
--- NOTE | 2018-02-19 18:03 | PDOC DISCHARGE SUMMARY ---
General - Admit/Disc Date/PCP Admission Date/Primary Care Provider: 02/17/18 21:37 Discharge Date: 02/19/18 - Discharge Diagnosis (1) Tachycardia Is this a current diagnosis for this admission?: Yes Summary: Secondary to POTS and anxiety. Cardiac workup was negative: Serial troponins negative 3, proBNP 27, TSH is normal, CTA of the chest is normal, chest x-ray is normal, EKG this morning demonstrated normal sinus rhythm. Discussed with in-house alternative medicine practitioner, Dr. Chatman, no further work up recommended. Recommend following up with her established alternative medicine practitioner, Dr. Perkins. (2) Hypertension Is this a current diagnosis for this admission?: Yes Summary: The patient was noted to have 1 elevated blood pressure to 158/77 during episode of anxiety. Otherwise, she has been normotensive. Orthostatic blood pressures were negative. (3) Abdominal pain Is this a current diagnosis for this admission?: Yes Summary: Resolved; unclear etiology. labor, preeclampsia, pancreatitis, acute hepatitis, urinary tract infection have been ruled out. (4) Nausea and vomiting Is this a current diagnosis for this admission?: Yes Summary: Resolved; secondary to abdominal discomfort and anxiety. (5) Anxiety Is this a current diagnosis for this admission?: Yes Summary: The patient reports a history of anxiety; patient and mother reports that her anxiety has been significantly increased during this . She is now having difficulty riding in car and maintaining his activities due to overwhelming anxiety. We discussed the importance of self-care in addition for caring for her . The patient reports that she is fearful of antidepressant/ antianxiety medications does not want to cause side effects, defects, or withdrawal for her infant. She was encouraged to discuss the severity of her symptoms with her [employer] [facility] at her follow-up visit. She was provided a short prescription for BuSpar; this was discussed with and approved by FELICITY Kearns. (6) with 34 completed weeks gestation Is this a current diagnosis for this admission?: Yes Summary: [employer] was the attending; evaluation including nonfetal stress testing, pelvic exam per OBGYN, and ultrasound are reassuring. Discussed with Dr Emmanuel prior to discharge; no specific instructions. Patient to follow up with her established OBGYN as scheduled. (7) Quinten-Danlos syndrome Is this a current diagnosis for this admission?: No (8) POTS (postural orthostatic tachycardia syndrome) Is this a current diagnosis for this admission?: Yes - Additional Information Resuscitation Status: Full Code Discharge Diet: As Tolerated, Regular Discharge Activity: Activity As Tolerated, Balance Activity w/Rest, Walk Frequently Prescriptions: Buspirone HCl [Buspar 10 mg Tablet] 10 mg PO Q8HP PRN #12 tablet PRN Reason: Home Medications: Prenat 115/Iron Fum/Folic/Dss [ 19 Tablet] 1 tab PO DAILY 01/27/18 Buspirone HCl [Buspar 10 mg Tablet] 10 mg PO Q8HP PRN #12 tablet 02/19/18 Mag Hydrox/Al Hydrox/Simeth [Maalox Plus Susp 30 Udcup] 30 ml PO Q4HP PRN #0 udc 02/19/18 History of Present Illness History of Present Illness: SAMUEL BENTLEY is a 22 year old female with a with a past medical history significant for Quinten-Danlos syndrome, POTS, and anxiety who was admitted by the [employer] [facility] service for right upper quadrant pain. The patient is approximately 34 weeks . [employer] was preparing to discharge the patient after determining that the patient was not in labor and that there was little concern for preeclampsia when the patient suddenly became diaphoretic, tremulous, tachycardic (heart rate 132), and hypertensive (blood pressure 150s/70s). She then became nauseated with 2 or 3 episodes of emesis. The patient continues to report intermittent right upper quadrant abdominal pain described as stabbing it is not especially worsened by food, mobility, or palpitation. She denies alleviating factors. The pain does radiate to her right flank. She reports a headache with blurred vision; right eye greater than left. Of note, the patient has a history of anxiety disorder and panic attacks with similar symptoms. Her current symptoms different from her typical panic attacks with regard to headache, blurred vision, and abdominal pain. Hospitalist service was consulted for evaluation and management of tachycardia, hypertension, and concern for atypical chest pain. Physical Exam Vital Signs: Temp Pulse Resp BP Pulse Ox 98.8 F 93 16 106/68 100 02/19/18 16:38 02/19/18 16:38 02/19/18 16:38 02/19/18 16:38 02/19/18 16:38 Intake & Output 02/18/18 02/19/18 02/20/18 06:59 06:59 06:59 Intake Total 200 400 Balance 200 400 Weight 73.1 kg General appearance: PRESENT: no acute distress, well-developed, well-nourished Head exam: PRESENT: atraumatic, normocephalic Eye exam: PRESENT: conjunctiva pink, EOMI, PERRLA. ABSENT: scleral icterus Ear exam: PRESENT: normal external ear exam Mouth exam: PRESENT: moist, tongue midline Neck exam: ABSENT: carotid bruit, JVD, lymphadenopathy, thyromegaly Respiratory exam: PRESENT: clear to auscultation marah. ABSENT: rales, rhonchi, wheezes Cardiovascular exam: PRESENT: RRR. ABSENT: diastolic murmur, rubs, systolic murmur Pulses: PRESENT: normal dorsalis pedis pul Vascular exam: PRESENT: normal capillary refill GI/Abdominal exam: PRESENT: normal bowel sounds, soft, other - . ABSENT: distended, guarding, mass, organolmegaly, rebound, tenderness Rectal exam: PRESENT: deferred Extremities exam: PRESENT: full ROM. ABSENT: calf tenderness, clubbing, pedal edema Neurological exam: PRESENT: alert, awake, oriented to person, oriented to place , oriented to time, oriented to situation, CN II-XII grossly intact. ABSENT: motor sensory deficit Psychiatric exam: PRESENT: appropriate affect, normal mood. ABSENT: homicidal ideation, suicidal ideation Skin exam: PRESENT: dry, intact, warm. ABSENT: cyanosis, rash Results Laboratory Results: 02/19/18 05:57 02/19/18 05:57 02/18/18 02/18/18 02/19/18 15:15 15:15 05:57 WBC 9.3 RBC 3.52 L Hgb 9.3 L Hct 28.1 L MCV 80 MCH 26.4 L MCHC 33.0 RDW 14.3 H Plt Count 219 Retic Count (auto) Absolute Retic Sodium Potassium Chloride Carbon Dioxide Anion Gap BUN Creatinine Est GFR ( Amer) Est GFR (Non-Af Amer) Glucose Calcium Magnesium 1.9 Iron TIBC % Saturation Ferritin Vitamin B12 Folate TSH 0.51 Free T4 1.30 02/19/18 02/19/18 02/19/18 05:57 05:57 05:57 WBC RBC Hgb Hct MCV MCH MCHC RDW Plt Count Retic Count (auto) 2.42 Absolute Retic 0.086 Sodium 138.9 Potassium 4.0 Chloride 109 H Carbon Dioxide 23 Anion Gap 7 BUN 5 L Creatinine 0.50 L Est GFR ( Amer) > 60 Est GFR (Non-Af Amer) > 60 Glucose 109 Calcium 8.6 Magnesium Iron 25.2 L TIBC 546 H % Saturation 5 Ferritin 5.02 L Vitamin B12 390.0 Folate 11.80 TSH Free T4 02/18/18 02/18/18 02/19/18 15:15 15:15 00:14 Creatine Kinase 34 Troponin I < 0.012 < 0.012 NT-Pro-B Natriuret Pep 02/19/18 02/19/18 05:57 05:57 Creatine Kinase Troponin I < 0.012 NT-Pro-B Natriuret Pep 27 Impressions: Chest X-Ray 02/18/18 00:00 IMPRESSION: NO ACUTE RADIOGRAPHIC FINDING IN THE CHEST. Obstetrics Ultrasound 02/18/18 00:00 IMPRESSION: Limited obstetrical ultrasound with measured parameters as described above. Mature placenta. Trimester of : Third trimester - 28 weeks to delivery. Chest/Abdomen CTA 02/19/18 00:00 IMPRESSION: NORMAL CTA OF THE CHEST. NO PULMONARY EMBOLI. Qualifiers - * PATIENT BEING DISCHARGED WITH ANY OF THE FOLLOWING DIAGNOSIS: No Plan Discharge Plan: Discharge to home with self-care. Follow-up with her established [facility] as scheduled. Notify her established alternative medicine practitioner of her admission and follow-up as directed. Time Spent: Less than 30 Minutes
== END 2018-02-19 17:08 | disposition home or self-care (01) ==
LOC: LC 18:55 → LR 21:37 → 2S 23:19 → 5 02-18 16:58
PROVIDERS: ADMIT Obstetrics & Gynecology Gynecology; ATTEND Obstetrics & Gynecology Gynecology
PROC: 4A0HXCZ Measurement of Products of Conception, Cardiac Rate, External Approach (ICD-10-PCS; principal; 2018-02-17)
DX: O26.893 Other specified pregnancy related conditions, third trimester (principal); R00.0 Tachycardia, unspecified; O99.343 Other mental disorders complicating pregnancy, third trimester; F41.9 Anxiety disorder, unspecified; O16.3 Unspecified maternal hypertension, third trimester; R11.2 Nausea with vomiting, unspecified; R10.11 Right upper quadrant pain; R51 Headache; H53.8 Other visual disturbances; R68.83 Chills (without fever); R07.9 Chest pain, unspecified; Z3A.34 34 weeks gestation of pregnancy; Q79.6 Ehlers-Danlos syndromes; Z90.49 Acquired absence of other specified parts of digestive tract; Z82.49 Family history of ischemic heart disease and other diseases of the circulatory system; Z82.3 Family history of stroke; Z82.69 Family history of other diseases of the musculoskeletal system and connective tissue
CPT/HCPCS: 59025 ×2; 36415 ×3; 87086; 84439; 82962; 82150; 82607; 82550; 82728; 82746; 83540; 83550; 83615; 83690; 83735; 84443; 84550; 85025; 85027 ×2; 85045; 80076; 80048; 80053; 81001 ×2; 84484 ×2; 80307; 83880; 71045; 76815; 71275; 93005 ×2; 93010 ×2; G0378 ×2; G0379

== ENCOUNTER 2018-02-24 16:25 | Outpatient (CLI) | payer MEDICAID ==
--- NOTE | 2018-02-24 16:57 | L&D Progress Notes ---
PROGRESS NOTES Datetime Report Generated by CPN: 02/24/2018 16:57 PROGRESS NOTE Comment: Saw MFM this AM, started feeling pressure and thought she should come in, MFM told her baby was low. OB in [place], post, closed? FT? high, no leaking, no bleeding, hsb coming to get her, reports good FM SIGNATURE SIGNATURE: [id number];[id number];[id number] SIGNATURE: [id number];13,[id number];14,[id number] SIGNATURE: [id number];[id number];10,[id number] Assignment: Marielos Gilmore MD Signature: with User ID: [email or web address] : with User ID: [email or web address]
[2018-02-24 17:19] LABS: APPEARANCE,URINE SLIGHTLY-CLOUDY; BILIRUBIN,URINE NEGATIVE (NEGATIVE); COLOR,URINE YELLOW; GLUCOSE, URINE NEGATIVE (NEGATIVE); KETONES,URINE NEGATIVE (NEGATIVE); LEUKOCYTE ESTERASE,URINE SMALL (NEGATIVE); NITRITE,URINE NEGATIVE (NEGATIVE); PROTEIN,URINE NEGATIVE (NEGATIVE); URINE SPECIFIC GRAVITY 1.021
[2018-02-24 17:41] LABS: URINE AMPHETAMINES SCREEN NEGATIVE; URINE BARBITURATES SCREEN NEGATIVE; URINE BENZODIAZEPINES SCREEN NEGATIVE; URINE COCAINE SCREEN NEGATIVE; URINE MARIJUANA (THC) SCREEN NEGATIVE; URINE METHADONE SCREEN NEGATIVE; URINE PHENCYCLIDINE SCREEN NEGATIVE
== END 2018-02-24 17:00 | disposition home or self-care (01) ==
LOC: LC 16:25
PROVIDERS: ATTEND Student in an Organized Health Care Education/Training Program
PROC: 4A1HXCZ Monitoring of Products of Conception, Cardiac Rate, External Approach (ICD-10-PCS; principal; 2018-02-24)
DX: Z34.93 Encounter for supervision of normal pregnancy, unspecified, third trimester (principal)
CPT/HCPCS: 80307; 81001

== ENCOUNTER 2018-04-25 17:58 | Emergency (ER) | payer MEDICAID ==
[2018-04-25] MEDS ORDERED: NORMAL SALINE 1000 ML 1,000 ML IV ONE (18:36)
[2018-04-25] MEDS ORDERED: ONDANSETRON HCL INJ/PF 4 MG/2 ML SDV IV ONE (18:36)
--- NOTE | 2018-04-25 18:42 | ER Document Report ---
ED Medical Screen (RME) - General Chief Complaint: Abdominal Pain Stated Complaint: ABDOMINAL PAIN Time Seen by Provider: 04/25/18 18:36 TRAVEL OUTSIDE OF THE [place] IN LAST 30 DAYS: No - HPI Notes: 04/25/18 18:41 Nausea vomiting 7 weeks upper abdominal pain history of cholecystectomy - Related Data Allergies/Adverse Reactions: azithromycin [From Zithromax Z-Mark] Allergy (Mild, Verified 04/25/18 18:26) rash adhesive [Adhesive] Allergy (Verified 04/25/18 18:26) codeine [Codeine] Allergy (Verified 04/25/18 18:26) ITCHING, HIVES latex [Latex] Allergy (Verified 04/25/18 18:26) metoclopramide [From Reglan] Allergy (Verified 04/25/18 18:26) morphine [Morphine] Allergy (Verified 04/25/18 18:26) ITCHING, HIVES diphenhydramine [From Benadryl] Adverse Reaction (Verified 04/25/18 18:26) Tachycardia Past Medical History - Social History Frequency of alcohol use: None Drug Abuse: None - Past Medical History Cardiac Medical History: Reports: Hx Hypertension - KEN SYNDROME/murmur Pulmonary Medical History: Denies: Hx Asthma Renal/ Medical History: Reports: Hx Ovarian Cysts. Denies: Hx Peritoneal Dialysis Musculoskeltal Medical History: Reports Hx Musculoskeletal Trauma Skin Medical History: Reports Hx Eczema Psychiatric Medical History: Reports: Hx Anxiety, Hx Attention Deficit Hyperactivity Disorder, Hx Depression Past Surgical History: Reports: Hx Cholecystectomy, Hx Gynecologic Surgery - D& C x 2, Hx Orthopedic Surgery - left knee, Hx Tonsillectomy - Immunizations Immunizations up to date: Yes Hx Diphtheria, Pertussis, Tetanus Vaccination: Yes History of Influenza Vaccine for 04/2017 - 09/2017 Season: No Review of Systems - Review of Systems Gastrointestinal: Nausea, Vomiting Physical Exam - Vital signs Vitals: Temp Pulse Resp BP Pulse Ox 98.0 F 119 H 24 H 132/65 H 100 04/25/18 18:19 04/25/18 18:19 04/25/18 18:19 04/25/18 18:19 04/25/18 18:19 - Respiratory Respiratory status: No respiratory distress Chest status: Nontender Chest palpation: Normal - Cardiovascular Rhythm: Regular Heart sounds: Normal auscultation Course - Vital Signs Vital signs: Temp Pulse Resp BP Pulse Ox 98.0 F 119 H 24 H 132/65 H 100 04/25/18 18:19 04/25/18 18:19 04/25/18 18:19 04/25/18 18:19 04/25/18 18:19
[2018-04-25 19:00] LABS: APPEARANCE,URINE CLEAR; BILIRUBIN,URINE NEGATIVE (NEGATIVE); COLOR,URINE STRAW; GLUCOSE, URINE NEGATIVE (NEGATIVE); KETONES,URINE NEGATIVE (NEGATIVE); LEUKOCYTE ESTERASE,URINE NEGATIVE (NEGATIVE); NITRITE,URINE NEGATIVE (NEGATIVE); PROTEIN,URINE NEGATIVE (NEGATIVE); UROBILINOGEN,URINE NEGATIVE mg/dL (<2.0)
[2018-04-25 19:08] LABS: URINE SPECIFIC GRAVITY 1.007
[2018-04-25 19:21] LABS: ABSOLUTE BASOPHILS # (AUTO) 0.1 10^3/uL (0.0-0.2); ABSOLUTE LYMPHOCYTES (AUTO) 1.3 10^3/uL (0.5-4.7); ABSOLUTE MONOCYTES (AUTO) 0.5 10^3/uL (0.1-1.4); ABSOLUTE NEUT (AUTO) 7.4 10^3/uL (1.7-8.2); BASOPHILS % (AUTO) 0.6 % (0-2); EOSINOPHILS % (AUTO) 0.5 % (0-6); HEMOGLOBIN 9.9 g/dL (12.0-15.5); LYMPHOCYTES % (AUTO) 14.3 % (13-45); MEAN CORPUSCULAR HEMOGLOBIN 21.6 pg (27.0-33.4); MEAN CORPUSCULAR HGB CONC 31.1 g/dL (32.0-36.0); MEAN CORPUSCULAR VOLUME 69 fl (80-97); MONOCYTES % (AUTO) 5.7 % (3-13); PLATELET COUNT 469 10^3/uL (150-450); RED BLOOD COUNT 4.61 10^6/uL (3.72-5.28); RED CELL DISTRIBUTION WIDTH 18.2 % (11.5-14.0); SEGMENTED NEUTROPHILS % (AUTO) 78.9 % (42-78); TOTAL CELLS COUNTED % (AUTO) 100 %; WHITE BLOOD COUNT 9.4 10^3/uL (4.0-10.5)
[2018-04-25 19:39] LABS: ALANINE AMINOTRANSFERASE 27 U/L (9-52); ALBUMIN 5.3 g/dL (3.5-5.0); ALKALINE PHOSPHATASE 75 U/L (38-126); ANION GAP 12 (5-19); ASPARTATE AMINO TRANSFERASE 22 U/L (14-36); BILIRUBIN,DIRECT 0.5 mg/dL (0.0-0.4); BILIRUBIN,TOTAL 0.8 mg/dL (0.2-1.3); BLOOD UREA NITROGEN 11 mg/dL (7-20); CALCIUM 10.1 mg/dL (8.4-10.2); CARBON DIOXIDE 20 mmol/L (22-30); CHLORIDE 108 mmol/L (98-107); GLUCOSE 88 mg/dL (75-110); LIPASE 115.9 U/L (23-300); POTASSIUM 3.8 mmol/L (3.6-5.0); SODIUM 140.2 mmol/L (137-145); TOTAL PROTEIN 8.7 g/dL (6.3-8.2)
[2018-04-25] MEDS ORDERED: KETOROLAC TROMETHAMINE INJ/PF 30 MG/1 ML SDV IV ONE (20:29)
--- NOTE | 2018-04-25 20:30 | ER Document Report ---
ED General - General Chief Complaint: Abdominal Pain Stated Complaint: ABDOMINAL PAIN Time Seen by Provider: 04/25/18 18:36 Notes: Patient is a 22-year old female with a past medical history of pots, anxiety, depression, prior cholecystectomy who presents with an acute onset of palpitations, nausea, and right upper abdominal pain that started just prior to arrival while grocery shopping. She reports that her symptoms have now resolved. States this feels very similar to when she has had attacks of pots in the past although usually she is able to get her symptoms controlled through deep breathing and was unsuccessful today prompting her to come to the emergency department. She notes that she was nauseated but did not vomit. No obvious trigger for today's episode. She states that her symptoms have significantly improved since arriving here in the emergency department and denies any current symptoms. She states during the episode she did have a dull , aching pain to her right upper abdomen likewise has resolved at this point. She has not contacted her primary care doctor regarding today's concerns. TRAVEL OUTSIDE OF THE [place] IN LAST 30 DAYS: No - Related Data Allergies/Adverse Reactions: azithromycin [From Zithromax Z-Mark] Allergy (Mild, Verified 04/25/18 18:26) rash adhesive [Adhesive] Allergy (Verified 04/25/18 18:26) codeine [Codeine] Allergy (Verified 04/25/18 18:26) ITCHING, HIVES latex [Latex] Allergy (Verified 04/25/18 18:26) metoclopramide [From Reglan] Allergy (Verified 04/25/18 18:26) morphine [Morphine] Allergy (Verified 04/25/18 18:26) ITCHING, HIVES diphenhydramine [From Benadryl] Adverse Reaction (Verified 04/25/18 18:26) Tachycardia Past Medical History - General Information source: Patient - Social History Smoking Status: Never Smoker Frequency of alcohol use: None Drug Abuse: None Lives with: Spouse/Significant other Family History: Reviewed & Not Pertinent, CVA, Hyperlipidemia, Hypertension, Other - Lupus, [place] Patient has suicidal ideation: No Patient has homicidal ideation: No - Past Medical History Cardiac Medical History: Reports: Hx Hypertension - KEN SYNDROME/murmur Pulmonary Medical History: Denies: Hx Asthma Renal/ Medical History: Reports: Hx Ovarian Cysts. Denies: Hx Peritoneal Dialysis Musculoskeletal Medical History: Reports Hx Musculoskeletal Trauma Skin Medical History: Reports Hx Eczema Psychiatric Medical History: Reports: Hx Anxiety, Hx Attention Deficit Hyperactivity Disorder, Hx Depression Past Surgical History: Reports: Hx Cholecystectomy, Hx Gynecologic Surgery - D& C x 2, Hx Orthopedic Surgery - left knee, Hx Tonsillectomy - Immunizations Immunizations up to date: Yes Hx Diphtheria, Pertussis, Tetanus Vaccination: Yes Review of Systems - Review of Systems Notes: Constitutional: Negative for fever. HENT: Negative for sore throat. Eyes: Negative for visual changes. Cardiovascular: Negative for chest pain. Respiratory: Negative for shortness of breath. Gastrointestinal: Positive for abdominal pain now resolved. Positive for nausea now resolved Genitourinary: Negative for dysuria. Musculoskeletal: Negative for back pain. Skin: Negative for rash. Neurological: Negative for headaches, weakness or numbness. 10 point ROS negative except as marked above and in HPI. Physical Exam - Vital signs Vitals: Temp Pulse Resp BP Pulse Ox 98.0 F 119 H 24 H 132/65 H 100 04/25/18 18:19 04/25/18 18:19 04/25/18 18:19 04/25/18 18:19 04/25/18 18:19 Interpretation: Tachycardic - Resolved at the time of my assessment, Tachypneic - Resolved at the time of my assessment Notes: PHYSICAL EXAMINATION: GENERAL: Well-appearing, well-nourished and in no acute distress. HEAD: Atraumatic, normocephalic. EYES: Pupils equal round and reactive to light, extraocular movements intact, sclera anicteric, conjunctiva are normal. ENT: nares patent, oropharynx clear without exudates. Moist mucous membranes. NECK: Normal range of motion, supple without lymphadenopathy LUNGS: Breath sounds clear to auscultation bilaterally and equal. No wheezes rales or rhonchi. HEART: Regular rate and rhythm without murmurs ABDOMEN: Soft, nontender, normoactive bowel sounds. No guarding, no rebound. No masses appreciated. EXTREMITIES: Normal range of motion, no pitting or edema. No cyanosis. NEUROLOGICAL: No focal neurological deficits. Moves all extremities spontaneously and on command. PSYCH: Normal mood, normal affect. SKIN: Warm, Dry, normal turgor, no rashes or lesions noted. Course - Re-evaluation Re-evalutation: 04/25/18 20:26 Patient presents with multiple complaints including palpitations, lightheadedness, right upper abdominal pain that started shortly prior to arrival and now have all completely resolved. The patient states that she attributes her symptoms to her pots disease and that she has had frequent similar symptoms in the past but usually are able to be controlled with deep breathing which was unsuccessful today. She states she feels much better now at the time of my assessment. Her initial tachycardia at time of presentation resolved spontaneously, heart rate at the time of my evaluation is 72 bpm. The patient denies any shortness of breath, pleuritic pain, at the time of my evaluation she is PERC criteria negative. She is 7 weeks from a vaginal delivery which is now several weeks outside of the period of high risk for pulmonary embolus. EKG without ischemic changes. Labs without any elevation of LFTs or bilirubin and patient is status post cholecystectomy. Lipase is normal. Examination is completely unremarkable. I reviewed with this patient that there is a degree of diagnostic uncertainty about the exact etiology of her presentation today but does not appear to be from an immediately life- threatening cause. The patient and her are in agreement with our approach and I do not have any additional concerns or questions at this point. At this time will discharge with return precautions and follow-up recommendations. Verbal discharge instructions given a the bedside and opportunity for questions given. Medication warnings reviewed. Patient is in agreement with this plan and has verbalized understanding of return precautions and the need for primary care follow-up in the next 24-72 hours. - Vital Signs Vital signs: Temp Pulse Resp BP Pulse Ox 98.0 F 119 H 24 H 132/65 H 100 04/25/18 18:19 04/25/18 18:19 04/25/18 18:19 04/25/18 18:19 04/25/18 18:19 - Laboratory Result Diagrams: 04/25/18 18:57 04/25/18 18:57 Laboratory results interpreted by me: 04/25/18 04/25/18 04/25/18 18:40 18:57 18:57 Hgb 9.9 L Hct 32.0 L MCV 69 L MCH 21.6 L MCHC 31.1 L RDW 18.2 H Plt Count 469 H Seg Neutrophils % 78.9 H Chloride 108 H Carbon Dioxide 20 L Direct Bilirubin 0.5 H Total Protein 8.7 H Albumin 5.3 H Urine Blood MODERATE H - EKG Interpretation by Me Additional EKG results interpreted by me: 04/25/18 20:28 Sinus tachycardia. Rate 104. No ST elevations or depressions. QTC is 453. Discharge - Discharge Clinical Impression: POTS (postural orthostatic tachycardia syndrome) Abdominal pain Qualifiers: Abdominal location: upper abdomen, unspecified Qualified Code(s): R10.10 - Upper abdominal pain, unspecified Condition: Good Disposition: HOME, SELF-CARE Additional Instructions: Your labs are overall unremarkable today. Return for any additional concerns you may have including recurrence of palpitations, shortness of breath, increasing pain, fever. Please follow-up with your general doctor within the next 24-48 hours. Referrals: JORDIN ZIMMERMAN MD [Primary Care Provider] - Follow up as needed
[2018-04-25 21:32] VITALS: BP 116/67
--- NOTE | 2018-04-26 08:13 | EKG REPORT ---
SEVERITY:- ABNORMAL ECG - SINUS TACHYCARDIA NONSPECIFIC T ABNORMALITIES, INFERIOR LEADS : Confirmed by: Nelly Lebron MD 26-Apr-2018 08:13:15
== END 2018-04-25 21:32 | disposition home or self-care (01) ==
LOC: ER 17:58
DX: I49.8 Other specified cardiac arrhythmias (principal); R10.11 Right upper quadrant pain; R11.0 Nausea; R00.2 Palpitations; I10 Essential (primary) hypertension; R42 Dizziness and giddiness; Z90.49 Acquired absence of other specified parts of digestive tract; Z88.1 Allergy status to other antibiotic agents; Z91.048 Other nonmedicinal substance allergy status; Z88.5 Allergy status to narcotic agent; Z91.040 Latex allergy status; Z88.8 Allergy status to other drugs, medicaments and biological substances
CPT/HCPCS: 93005; 99284; 96360; 36415; 84702; 83690; 85025; 80053; 81001; 93010; J7030

== ENCOUNTER → 2018-06-08 | Outpatient (CLI) | payer MEDICAID ==
--- NOTE | 2018-06-08 16:40 | RADIOLOGY REPORT (SQ) ---
EXAM DESCRIPTION: T SPINE AP/LAT COMPLETED DATE/TIME: 06/08/2018 4:26 pm REASON FOR STUDY: PAIN IN THORACIC SPINE M54.2 CERVICALGIA M54.6 PAIN IN THORACIC SPINE COMPARISON: None. NUMBER OF VIEWS: Two views. TECHNIQUE: AP and lateral radiographic images acquired of the thoracic spine. LIMITATIONS: None. FINDINGS: MINERALIZATION: Normal. ALIGNMENT: Mid dorsal scoliosis convex right. VERTEBRAE: 12 rib-bearing dorsal vertebra. DISCS: No significant loss of height or significant narrowing. No large osteophytes. HARDWARE: None in the spine. MEDIASTINUM AND SOFT TISSUES: Normal heart size and aortic contour. No soft tissue abnormality. VISUALIZED LUNG DILLON: Clear. OTHER: No other significant finding. IMPRESSION: Mid dorsal scoliosis convex right. Otherwise, normal dorsal spine. TECHNICAL DOCUMENTATION: JOB ID: [id number] [id number] 2010 [employer]- All Rights Reserved Reading location - IP/workstation name: [email or web address]
--- NOTE | 2018-06-08 16:42 | RADIOLOGY REPORT (SQ) ---
EXAM DESCRIPTION: C SP 4 OR 5 VIEWS COMPLETED DATE/TIME: 06/08/2018 4:26 pm REASON FOR STUDY: CERVICALGIA M54.2 CERVICALGIA M54.6 PAIN IN THORACIC SPINE COMPARISON: None. NUMBER OF VIEWS: Five views. TECHNIQUE: AP, lateral, obliques and odontoid radiographic images acquired of the cervical spine. LIMITATIONS: None. FINDINGS: MINERALIZATION: Normal. ALIGNMENT: Straightening of the cervical spine suggests spasm. VERTEBRAE: Vertebral bodies of normal height. DISCS: No significant osteophytes or sclerosis. Disc height maintained. FORAMINA: No osteophytes or foraminal narrowing. LATERAL AND POSTERIOR ELEMENTS: Facets, lateral masses and spinous processes without significant find ings. HARDWARE: None in the spine. SOFT TISSUES: No masses or calcifications. Lung apices clear. OTHER: No other significant finding. IMPRESSION: NO SIGNIFICANT RADIOGRAPHIC FINDING IN THE CERVICAL SPINE. TECHNICAL DOCUMENTATION: JOB ID: [id number] [id number] 2010 [employer]- All Rights Reserved Reading location - IP/workstation name: [email or web address]
== END ==
LOC: OD 16:08
PROVIDERS: ATTEND Nurse Practitioner Family
DX: M54.2 Cervicalgia (principal); M54.6 Pain in thoracic spine
CPT/HCPCS: 72050; 72070

== ENCOUNTER 2018-06-15 13:43 | Emergency (ER) | payer MEDICAID ==
[2018-06-15] MEDS ORDERED: NORMAL SALINE 1000 ML 1,000 ML IV ONE ×2 (14:41→17:56)
--- NOTE | 2018-06-15 14:44 | ER Document Report ---
ED Medical Screen (RME) - General TRAVEL OUTSIDE OF THE [place] IN LAST 30 DAYS: No <JAMES MANCUSO - Last Filed: 06/15/18 14:43> <JAIME FISH - Last Filed: 06/15/18 18:16> - General Chief Complaint: Dizziness Stated Complaint: DIZZINESS Time Seen by Provider: 06/15/18 14:38 Notes: I have no dragon to dictate (JAMES MANCUSO) - Related Data Allergies/Adverse Reactions: azithromycin [From Zithromax Z-Mark] Allergy (Mild, Verified 06/15/18 13:45) rash adhesive [Adhesive] Allergy (Verified 06/15/18 13:45) codeine [Codeine] Allergy (Verified 06/15/18 13:45) ITCHING, HIVES latex [Latex] Allergy (Verified 06/15/18 13:45) metoclopramide [From Reglan] Allergy (Verified 06/15/18 13:45) morphine [Morphine] Allergy (Verified 06/15/18 13:45) ITCHING, HIVES diphenhydramine [From Benadryl] Adverse Reaction (Verified 06/15/18 13:45) Tachycardia Past Medical History - Past Medical History Cardiac Medical History: Reports: Hx Hypertension - KEN SYNDROME/murmur Pulmonary Medical History: Denies: Hx Asthma Renal/ Medical History: Reports: Hx Ovarian Cysts. Denies: Hx Peritoneal Dialysis Musculoskeltal Medical History: Reports Hx Musculoskeletal Trauma Skin Medical History: Reports Hx Eczema Psychiatric Medical History: Reports: Hx Anxiety, Hx Attention Deficit Hyperactivity Disorder, Hx Depression Past Surgical History: Reports: Hx Cholecystectomy, Hx Gynecologic Surgery - D& C x 2, Hx Orthopedic Surgery - left knee, Hx Tonsillectomy - Immunizations Immunizations up to date: Yes Hx Diphtheria, Pertussis, Tetanus Vaccination: Yes History of Influenza Vaccine for 04/2017 - 09/2017 Season: No <JAMES MANCUSO - Last Filed: 06/15/18 14:43> Physical Exam - Genitourinary External exam: Normal Speculum exam: Other - Small amount of mucousy yellowish discharge Vaginal bleeding: None - TRACE Bimanuel exam: Cervical motion tender <JAIME FISH - Last Filed: 06/15/18 18:16> - Vital signs Vitals: Temp Pulse Resp BP Pulse Ox 98.1 F 106 H 18 125/74 100 06/15/18 13:52 06/15/18 13:52 06/15/18 13:52 06/15/18 13:52 06/15/18 13:52 Course - Laboratory Result Diagrams: 06/15/18 15:13 06/15/18 15:13 <JAIME FISH - Last Filed: 06/15/18 18:16> - Vital Signs Vital signs: Temp Pulse Resp BP Pulse Ox 98.1 F 106 H 18 125/74 100 06/15/18 13:52 06/15/18 13:52 06/15/18 13:52 06/15/18 13:52 06/15/18 13:52 - Laboratory Laboratory results interpreted by me: 06/15/18 06/15/18 06/15/18 15:13 15:13 15:13 Hgb 11.8 L MCV 71 L MCH 22.5 L MCHC 31.5 L RDW 23.9 H Seg Neutrophils % 83.1 H Lymphocytes % 11.3 L Absolute Neutrophils 8.3 H Chloride 108 H Calcium 10.4 H Albumin 5.1 H Urine Ketones TRACE H Ur Leukocyte Esterase TRACE H Doctor's Discharge <JAMES MANCUSO - Last Filed: 06/15/18 14:43> <JAIME FISH - Last Filed: 06/15/18 18:16> - Discharge Referrals: ROCIO VALDIVIA FNP-C [Primary Care Provider] - Follow up as needed
[2018-06-15 15:43] LABS: INTERNATIONAL RATION (INR) 1.09; PROTHROMBIN TIME 14.7 SEC (11.4-15.4)
[2018-06-15 15:44] LABS: ABSOLUTE BASOPHILS # (AUTO) 0.1 10^3/uL (0.0-0.2); ABSOLUTE EOSINOPHILS # (AUTO) 0.1 10^3/uL (0.0-0.6); ABSOLUTE LYMPHOCYTES (AUTO) 1.1 10^3/uL (0.5-4.7); ABSOLUTE MONOCYTES (AUTO) 0.4 10^3/uL (0.1-1.4); ABSOLUTE NEUT (AUTO) 8.3 10^3/uL (1.7-8.2); BASOPHILS % (AUTO) 0.6 % (0-2); EOSINOPHILS % (AUTO) 0.6 % (0-6); HEMATOCRIT 37.5 % (36.0-47.0); HEMOGLOBIN 11.8 g/dL (12.0-15.5); LYMPHOCYTES % (AUTO) 11.3 % (13-45); MEAN CORPUSCULAR HEMOGLOBIN 22.5 pg (27.0-33.4); MEAN CORPUSCULAR HGB CONC 31.5 g/dL (32.0-36.0); MEAN CORPUSCULAR VOLUME 71 fl (80-97); MONOCYTES % (AUTO) 4.4 % (3-13); PLATELET COUNT 309 10^3/uL (150-450); RED BLOOD COUNT 5.25 10^6/uL (3.72-5.28); RED CELL DISTRIBUTION WIDTH 23.9 % (11.5-14.0); SEGMENTED NEUTROPHILS % (AUTO) 83.1 % (42-78); TOTAL CELLS COUNTED % (AUTO) 100 %
[2018-06-15 15:58] LABS: ALANINE AMINOTRANSFERASE 32 U/L (9-52); ALBUMIN 5.1 g/dL (3.5-5.0); ALKALINE PHOSPHATASE 76 U/L (38-126); ANION GAP 12 (5-19); ASPARTATE AMINO TRANSFERASE 24 U/L (14-36); BILIRUBIN,DIRECT 0.2 mg/dL (0.0-0.4); BILIRUBIN,TOTAL 0.9 mg/dL (0.2-1.3); BLOOD UREA NITROGEN 11 mg/dL (7-20); CALCIUM 10.4 mg/dL (8.4-10.2); CARBON DIOXIDE 24 mmol/L (22-30); CHLORIDE 108 mmol/L (98-107); GLUCOSE 92 mg/dL (75-110); SODIUM 144.1 mmol/L (137-145); TOTAL PROTEIN 8.1 g/dL (6.3-8.2)
[2018-06-15 16:23] LABS: APPEARANCE,URINE SLIGHTLY-CLOUDY; BILIRUBIN,URINE NEGATIVE (NEGATIVE); COLOR,URINE YELLOW; GLUCOSE, URINE NEGATIVE (NEGATIVE); KETONES,URINE TRACE mg/dL (NEGATIVE); LEUKOCYTE ESTERASE,URINE TRACE (NEGATIVE); NITRITE,URINE NEGATIVE (NEGATIVE); PROTEIN,URINE NEGATIVE (NEGATIVE); URINE SPECIFIC GRAVITY 1.018; UROBILINOGEN,URINE NEGATIVE mg/dL (<2.0)
[2018-06-15] MEDS ORDERED: ONDANSETRON HCL INJ/PF 4 MG/2 ML SDV IV ONE (17:56)
[2018-06-15] MEDS ORDERED: ACETAMINOPHEN 325 MG TABLET PO ONE (18:15)
[2018-06-15 18:39] LABS: T.VAGINALIS (WET MOUNT) NO TRICHOMONAS SEEN; WBCS (WET MOUNT) RARE WBCS SEEN; YEAST (WET MOUNT) NO YEAST SEEN
--- NOTE | 2018-06-15 18:42 | ER Document Report ---
ED General - General Chief Complaint: Dizziness Stated Complaint: DIZZINESS Time Seen by Provider: 06/15/18 14:38 Mode of Arrival: Ambulatory Information source: Patient TRAVEL OUTSIDE OF THE [place] 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, Quinten- Danlos syndrome and a history of anemia with a previous hemoglobin of 10, she also reports an abnormal Pap smear with "high risk HPV" - Related Data Allergies/Adverse Reactions: azithromycin [From Zithromax Z-Mark] Allergy (Mild, Verified 06/15/18 13:45) rash adhesive [Adhesive] Allergy (Verified 06/15/18 13:45) codeine [Codeine] Allergy (Verified 06/15/18 13:45) ITCHING, HIVES latex [Latex] Allergy (Verified 06/15/18 13:45) metoclopramide [From Reglan] Allergy (Verified 06/15/18 13:45) morphine [Morphine] Allergy (Verified 06/15/18 13:45) ITCHING, HIVES diphenhydramine [From Benadryl] Adverse Reaction (Verified 06/15/18 13:45) Tachycardia Past Medical History - General Information source: Patient - Social History Smoking Status: Never Smoker Frequency of alcohol use: None Drug Abuse: None Family History: Reviewed & Not Pertinent, CVA, Hyperlipidemia, Hypertension, Other - Lupus, [place] Patient has suicidal ideation: No Patient has homicidal ideation: No - Past Medical History Cardiac Medical History: Reports: Hx Hypertension - KEN SYNDROME/murmur Pulmonary Medical History: Denies: Hx Asthma Renal/ Medical History: Reports: Hx Ovarian Cysts. Denies: Hx Peritoneal Dialysis Musculoskeletal Medical History: Reports Hx Musculoskeletal Trauma Skin Medical History: Reports Hx Eczema Psychiatric Medical History: Reports: Hx Anxiety, Hx Attention Deficit Hyperactivity Disorder, Hx Depression Past Surgical History: Reports: Hx Cholecystectomy, Hx Gynecologic Surgery - D& C x 2, Hx Orthopedic Surgery - left knee, Hx Tonsillectomy - Immunizations Immunizations up to date: Yes Hx Diphtheria, Pertussis, Tetanus Vaccination: Yes Review of Systems - Review of Systems Constitutional: No symptoms reported EENT: No symptoms reported Cardiovascular: Palpitations, Dizziness, Lightheaded Respiratory: No symptoms reported Gastrointestinal: See HPI Genitourinary: See HPI Female Genitourinary: See HPI Musculoskeletal: No symptoms reported Skin: No symptoms reported Hematologic/Lymphatic: No symptoms reported Neurological/Psychological: No symptoms reported -: Yes All other systems reviewed and negative Physical Exam - Vital signs Vitals: Temp Pulse Resp BP Pulse Ox 98.1 F 106 H 18 125/74 100 06/15/18 13:52 06/15/18 13:52 06/15/18 13:52 06/15/18 13:52 06/15/18 13:52 Interpretation: Normal - General General appearance: Appears well, Alert - HEENT Head: Normocephalic, Atraumatic Eyes: Normal Pupils: PERRL - Respiratory Respiratory status: No respiratory distress Chest status: Nontender Breath sounds: Normal Chest palpation: Normal - Cardiovascular Rhythm: Regular Heart sounds: Normal auscultation Murmur: No - Abdominal Inspection: Normal Distension: No distension Bowel sounds: Normal Tenderness: Tender - Pelvic tenderness Organomegaly: No organomegaly - Back Back: Normal, Nontender - Extremities General upper extremity: Normal inspection, Nontender, Normal color, Normal ROM , Normal temperature General lower extremity: Normal inspection, Nontender, Normal color, Normal ROM , Normal temperature, Normal weight bearing. No: Esequiel's sign - Neurological Neuro grossly intact: Yes Cognition: Normal Orientation: AAOx4 [place] Coma Scale Eye Opening: Spontaneous [place] Coma Scale Verbal: Oriented [place] Coma Scale Motor: Obeys Commands [place] Coma Scale Total: 15 Speech: Normal Motor strength normal: LUE, RUE, LLE, RLE Sensory: Normal - Psychological Associated symptoms: Normal affect, Normal mood - Skin Skin Temperature: Warm Skin Moisture: Dry Skin Color: Normal Course - Re-evaluation Re-evalutation: 06/15/18 20:49 Patient was discussed with on-call CABLE TESTERS HELPER, Dr. Abdi, I discussed the ultrasound findings as well as patient's other symptoms, he states that it is highly unlikely that patient has retained products of conception at this point in time recommends outpatient follow-up 06/15/18 22:23 Lab and imaging findings discussed with patient at bedside which are relatively unremarkable, she was advised to follow-up with CABLE TESTERS HELPER in 2-3 days for abnormal ultrasound findings or return if symptoms worsen, patient acknowledges understanding and agreement with this plan - Vital Signs Vital signs: Temp Pulse Resp BP Pulse Ox 98.9 F 81 18 121/62 100 06/15/18 21:00 06/15/18 21:00 06/15/18 13:52 06/15/18 21:00 06/15/18 21:00 - Laboratory Result Diagrams: 06/15/18 15:13 06/15/18 15:13 Laboratory results interpreted by me: 06/15/18 06/15/18 06/15/18 15:13 15:13 15:13 Hgb 11.8 L MCV 71 L MCH 22.5 L MCHC 31.5 L RDW 23.9 H Seg Neutrophils % 83.1 H Lymphocytes % 11.3 L Absolute Neutrophils 8.3 H Chloride 108 H Calcium 10.4 H Albumin 5.1 H Urine Ketones TRACE H Ur Leukocyte Esterase TRACE H - Diagnostic Test Radiology reviewed: Image reviewed, Reports reviewed - EKG Interpretation by Me EKG shows normal: Sinus rhythm Rate: Tachycardia Discharge - Discharge Clinical Impression: Pelvic pain, Dizziness Condition: Stable Disposition: HOME, SELF-CARE Instructions: Dizziness ([facility]), Pelvic Pain ([facility]) Additional Instructions: Follow up with your primary care provider in one to 2 days. Return to the emergency room immediately if symptoms worsen or any additional concerns. Referrals: ROCIO VALDIVIA FNP-C [Primary Care Provider] - Follow up as needed
[2018-06-15 20:05] LABS: CHLAM PCR NOT DETECTED (NOT DETECT); GON PCR NOT DETECTED (NOT DETECT)
--- NOTE | 2018-06-15 20:29 | RADIOLOGY REPORT (SQ) ---
EXAM DESCRIPTION: U/S NON OB PEL TV W/DOPPLER COMPLETED DATE/TIME: 06/15/2018 8:16 pm REASON FOR STUDY: PELVIC PAIN COMPARISON: None. TECHNIQUE: Dynamic and static grayscale images acquired of the pelvis via transvaginal approach and recorded on PACS. Additional selected color Doppler and spectral images recorded. LIMITATIONS: None. FINDINGS: UTERUS: Contour normal. No mass. ENDOMETRIAL STRIPE: There is some echogenic material in the endometrial canal. CERVIX: No nabothian cysts. RIGHT OVARY AND DOPPLER: Normal size. No worrisome masses. Normal arterial vascular flow without evid ence for torsion. LEFT OVARY AND DOPPLER: Ovary not seen. FREE FLUID: None noted. OTHER: No other significant finding. MEASUREMENTS: UTERUS: 6.2 x 3.6 x 4.6 cm. ENDOMETRIAL STRIPE: 9 mm. RIGHT OVARY: 1.6 x 1.1 x 1.3 cm. LEFT OVARY: Ovary not seen. IMPRESSION: There is some echogenic material in the endometrial canal. Cannot entirely exclude baylee ined products of conception, but with the patient 14 weeks it would seem that this would m anifest itself earlier. TECHNICAL DOCUMENTATION: JOB ID: [id number] [employer]- All Rights Reserved Rev-12/03 Reading location - IP/workstation name: [email or web address]
[2018-06-15 21:05] VITALS: BP 121/62
== END 2018-06-15 21:04 | disposition home or self-care (01) ==
LOC: ER 13:43
DX: R42 Dizziness and giddiness (principal); R10.2 Pelvic and perineal pain; R93.89 Abnormal findings on diagnostic imaging of other specified body structures; R00.2 Palpitations; R20.0 Anesthesia of skin; R20.2 Paresthesia of skin; R51 Headache; R00.0 Tachycardia, unspecified; N94.10 Unspecified dyspareunia; R19.5 Other fecal abnormalities; I10 Essential (primary) hypertension; Z88.1 Allergy status to other antibiotic agents; Z91.048 Other nonmedicinal substance allergy status; Z88.5 Allergy status to narcotic agent; Z91.040 Latex allergy status
CPT/HCPCS: 99284; 96360; 96361; 36415; 87210; 84703; 85025; 85610; 82272; 80053; 81001; 87491; 87591; 76830; 93976; J3490; J7030

== ENCOUNTER 2018-06-25 14:04 | Emergency (ER) | payer MEDICAID ==
--- NOTE | 2018-06-25 15:13 | ER Document Report ---
ED Medical Screen (RME) - General Chief Complaint: Chest Pain Stated Complaint: CHEST PAIN/SYNCOPE Time Seen by Provider: 06/25/18 15:01 Notes: Patient has POTS. Today, she was riding in the car, when she felt lightheaded and hot and developed blurry vision and then "blacked out" hitting her face and. And having some chest pains. Patient was diagnosed with POTS at 12 years of age. She is followed by a flow trader. She was on atenolol, but stopped it in the spring. She had a baby 16 weeks ago. Her heart rate can average between 101 140. She is breast-feeding her . Seen here last week and had an ultrasound that showed some possible retained products in her uterus and I have advised the patient to follow that up with her ADMINISTRATIVE STAFF SUPERVISOR. Unlikely that it is retained products this far . TRAVEL OUTSIDE OF THE [place] IN LAST 30 DAYS: No - Related Data Allergies/Adverse Reactions: azithromycin [From Zithromax Z-Mark] Allergy (Mild, Verified 06/25/18 14:05) rash adhesive [Adhesive] Allergy (Verified 06/25/18 14:05) codeine [Codeine] Allergy (Verified 06/25/18 14:05) ITCHING, HIVES latex [Latex] Allergy (Verified 06/25/18 14:05) metoclopramide [From Reglan] Allergy (Verified 06/25/18 14:05) morphine [Morphine] Allergy (Verified 06/25/18 14:05) ITCHING, HIVES diphenhydramine [From Benadryl] Adverse Reaction (Verified 06/25/18 14:05) Tachycardia Past Medical History - Social History Frequency of alcohol use: None Drug Abuse: None - Past Medical History Cardiac Medical History: Reports: Hx Hypertension - KEN SYNDROME/murmur Pulmonary Medical History: Denies: Hx Asthma Renal/ Medical History: Reports: Hx Ovarian Cysts. Denies: Hx Peritoneal Dialysis Musculoskeltal Medical History: Reports Hx Musculoskeletal Trauma Skin Medical History: Reports Hx Eczema Psychiatric Medical History: Reports: Hx Anxiety, Hx Attention Deficit Hyperactivity Disorder, Hx Depression Past Surgical History: Reports: Hx Cholecystectomy, Hx Gynecologic Surgery - D& C x 2, Hx Orthopedic Surgery - left knee, Hx Tonsillectomy - Immunizations Immunizations up to date: Yes Hx Diphtheria, Pertussis, Tetanus Vaccination: Yes History of Influenza Vaccine for 04/2017 - 09/2017 Season: No Physical Exam - Vital signs Vitals: Temp Pulse Resp BP Pulse Ox 98.3 F 100 16 123/73 100 06/25/18 14:22 06/25/18 14:22 06/25/18 14:22 06/25/18 14:22 06/25/18 14:22 Course - Vital Signs Vital signs: Temp Pulse Resp BP Pulse Ox 98.3 F 100 16 123/73 100 06/25/18 14:22 06/25/18 14:22 06/25/18 14:22 06/25/18 14:22 06/25/18 14:22 Doctor's Discharge - Discharge Referrals: ROCIO VALDIVIA FNP-C [Primary Care Provider] - Follow up as needed
[2018-06-25] MEDS: NORMAL SALINE 1000 ML 1,000 ML IV PRN ×2 (15:23→15:24)
[2018-06-25 15:50] LABS: ABSOLUTE BASOPHILS # (AUTO) 0.1 10^3/uL (0.0-0.2); ABSOLUTE EOSINOPHILS # (AUTO) 0.1 10^3/uL (0.0-0.6); ABSOLUTE LYMPHOCYTES (AUTO) 1.8 10^3/uL (0.5-4.7); ABSOLUTE MONOCYTES (AUTO) 0.6 10^3/uL (0.1-1.4); ABSOLUTE NEUT (AUTO) 5.5 10^3/uL (1.7-8.2); BASOPHILS % (AUTO) 0.9 % (0-2); EOSINOPHILS % (AUTO) 1.8 % (0-6); HEMATOCRIT 38.7 % (36.0-47.0); HEMOGLOBIN 12.3 g/dL (12.0-15.5); LYMPHOCYTES % (AUTO) 21.6 % (13-45); MEAN CORPUSCULAR HGB CONC 31.7 g/dL (32.0-36.0); MEAN CORPUSCULAR VOLUME 73 fl (80-97); MONOCYTES % (AUTO) 7.5 % (3-13); PLATELET COUNT 351 10^3/uL (150-450); RED BLOOD COUNT 5.33 10^6/uL (3.72-5.28); RED CELL DISTRIBUTION WIDTH 24.9 % (11.5-14.0); SEGMENTED NEUTROPHILS % (AUTO) 68.2 % (42-78); TOTAL CELLS COUNTED % (AUTO) 100 %; WHITE BLOOD COUNT 8.1 10^3/uL (4.0-10.5)
[2018-06-25 15:52] LABS: APPEARANCE,URINE SLIGHTLY-CLOUDY; BILIRUBIN,URINE NEGATIVE (NEGATIVE); COLOR,URINE YELLOW; GLUCOSE, URINE NEGATIVE (NEGATIVE); KETONES,URINE NEGATIVE (NEGATIVE); LEUKOCYTE ESTERASE,URINE NEGATIVE (NEGATIVE); NITRITE,URINE NEGATIVE (NEGATIVE); PROTEIN,URINE NEGATIVE (NEGATIVE); URINE SPECIFIC GRAVITY 1.018; UROBILINOGEN,URINE NEGATIVE mg/dL (<2.0)
[2018-06-25 16:14] LABS: ANISOCYTOSIS 3+; HYPOCHROMASIA 2+; OVALOCYTES 1+; PLATELET COMMENT ADEQUATE; POIKILOCYTOSIS 1+
[2018-06-25 16:15] LABS: ALANINE AMINOTRANSFERASE 21 U/L (9-52); ALBUMIN 5.3 g/dL (3.5-5.0); ALKALINE PHOSPHATASE 62 U/L (38-126); ANION GAP 15 (5-19); ASPARTATE AMINO TRANSFERASE 21 U/L (14-36); BILIRUBIN,DIRECT 0.1 mg/dL (0.0-0.4); BILIRUBIN,TOTAL 0.8 mg/dL (0.2-1.3); BLOOD UREA NITROGEN 13 mg/dL (7-20); CALCIUM 10.9 mg/dL (8.4-10.2); CARBON DIOXIDE 24 mmol/L (22-30); CHLORIDE 107 mmol/L (98-107); GLUCOSE 96 mg/dL (75-110); POTASSIUM 4.4 mmol/L (3.6-5.0); SODIUM 146.1 mmol/L (137-145); TOTAL PROTEIN 8.3 g/dL (6.3-8.2)
--- NOTE | 2018-06-25 16:47 | ER Document Report ---
ED General - General Chief Complaint: Chest Pain Stated Complaint: CHEST PAIN/SYNCOPE Time Seen by Provider: 06/25/18 15:01 TRAVEL OUTSIDE OF THE [place] IN LAST 30 DAYS: No - HPI Notes: Patient is a 22-year-old female with a history of POTS who presents to the ED complaining of having episode of dizziness, lightheadedness, and brief syncopal episode prior to arrival. Patient states that she was in the car with her mother when she felt a mild headache and her symptoms above just prior to her syncopal episode that lasted less than 2 seconds. Patient states that she did lean forward and hit her forehead off of the, but does not have any other pain associated. Patient states that she has been otherwise acting and behaving normally since then. Patient states that she feels "fine." Patient states that she presented to the ED just to make sure her blood work was okay. She was evaluated by her cardiology group last week and has been doing well since then otherwise. She is not currently taking any medicines for her POTS. Patient states that she is 16 weeks and is breast-feeding without any difficulties. Patient was evaluated about a week ago and was noted to have some "echogenic" substance within her uterus, highly unlikely to be retained parts. 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 She does continue to have intermittent pelvic pain associated otherwise. Patient states that she has had syncopal episodes in the past that were similar to this. She has no other concerns or complaints at this time. She has been eating and drinking without difficulty. She is urinating normally and having normal bowel movements. No other vaginal discharge or odor. Denies any fever, neck pain, changes in vision/speech/mentation/hearing, URI, sore throat, chest pain, palpitations, cough, shortness of breath, wheeze, dyspnea, abdominal pain, nausea/vomiting/diarrhea, urinary retention, dysuria, hematuria, loss of control of bowel or bladder, numbness/tingling, saddle anesthesia, muscle paralysis/weakness, or rash. - Related Data Allergies/Adverse Reactions: azithromycin [From Zithromax Z-Mark] Allergy (Mild, Verified 06/25/18 14:05) rash adhesive [Adhesive] Allergy (Verified 06/25/18 14:05) codeine [Codeine] Allergy (Verified 06/25/18 14:05) ITCHING, HIVES latex [Latex] Allergy (Verified 06/25/18 14:05) metoclopramide [From Reglan] Allergy (Verified 06/25/18 14:05) morphine [Morphine] Allergy (Verified 06/25/18 14:05) ITCHING, HIVES diphenhydramine [From Benadryl] Adverse Reaction (Verified 06/25/18 14:05) Tachycardia Past Medical History - Social History Smoking Status: Never Smoker Frequency of alcohol use: None Drug Abuse: None Family History: Reviewed & Not Pertinent, CVA, Hyperlipidemia, Hypertension, Other - Lupus, [place] Patient has suicidal ideation: No Patient has homicidal ideation: No - Past Medical History Cardiac Medical History: Reports: Hx Hypertension - KEN SYNDROME/murmur Pulmonary Medical History: Denies: Hx Asthma Renal/ Medical History: Reports: Hx Ovarian Cysts. Denies: Hx Peritoneal Dialysis Musculoskeletal Medical History: Reports Hx Musculoskeletal Trauma Skin Medical History: Reports Hx Eczema Psychiatric Medical History: Reports: Hx Anxiety, Hx Attention Deficit Hyperactivity Disorder, Hx Depression Past Surgical History: Reports: Hx Cholecystectomy, Hx Gynecologic Surgery - D& C x 2, Hx Orthopedic Surgery - left knee, Hx Tonsillectomy - Immunizations Immunizations up to date: Yes Hx Diphtheria, Pertussis, Tetanus Vaccination: Yes Review of Systems - Review of Systems -: Yes All other systems reviewed and negative Physical Exam - Vital signs Vitals: Temp Pulse Resp BP Pulse Ox 98.3 F 100 16 123/73 100 06/25/18 14:22 06/25/18 14:22 06/25/18 14:22 06/25/18 14:22 06/25/18 14:22 - Notes Notes: PHYSICAL EXAMINATION: GENERAL: Well-appearing, well-nourished and in no acute distress. A&Ox4. Answers questions appropriately. HEAD: Atraumatic, normocephalic. Non-tender. No bogginess/hematoma. No vanegas sign. EYES: Pupils equal round and reactive to light, extraocular movements intact, sclera anicteric, conjunctiva are normal. No nystagmus. vis meyer intact. No raccoon eyes or entrapment. ENT: EAC clear b/l. TM's intact b/l without erythema, fluid, or perforation. Nares patent and without discharge. oropharynx clear without exudates. No tonsilar hypertrophy or erythema. Moist mucous membranes. No sinus tenderness. No CSF discharge noted or hemotympanum. NECK: Normal range of motion, supple without lymphadenopathy. No rigidity/ meningismus. No midline tenderness. LUNGS: Breath sounds clear to auscultation bilaterally and equal. No wheezes rales or rhonchi. HEART: Regular rate and rhythm without murmurs, rubs, gallops. ABDOMEN: Soft, nontender, nondistended abdomen. No guarding, no rebound. Normal bowel sounds present. No CVA tenderness bilaterally. Musculoskeletal: Ext's b/l: FROM to passive/active. Strength 5+/5. No deficits noted. No bony tenderness of extremities. Extremities: No cyanosis, clubbing, or edema b/l. Peripheral pulses 2+. Capillary refill less than 2 seconds. NEUROLOGICAL: NIH 0. GCS 15. Cranial nerves grossly intact. Normal speech, normal gait. Normal sensory, motor exams. Reflexes 2+ b/l. MAYLIN's negative. Pronator drift negative. Heel/phipps, finger/nose wnl. Rhomberg neg. PSYCH: Normal mood, normal affect. SKIN: Warm, Dry, normal turgor, no rashes or lesions noted. Course - Re-evaluation Re-evalutation: 06/25/18 16:48 Patient is an afebrile, well-hydrated, 22-year-old female who presents to the ED with syncopal episode in the setting of POTS. vitals are acceptable without any significant tachycardia, tachypnea, or hypoxia. PE is otherwise unremarkable for any focal neurological deficits. Patient is nontoxic- appearing and is tolerating p.o. without any difficulties. Pt is currently asymptomatic. NIH 0, GCS 15, cranial nerves grossly intact, nexus criteria negative, [place] head criteria negative. CBC, CMP, urinalysis, EKG are all unremarkable for any acute pathology. Her orthostatics were mildly positive and she was receiving fluids, but has not received all of them yet. Patient is requesting to leave AMA as her boyfriend/fianc needs to go home to take his medicine and does not want to wait for rehydration purposes. Patient does not have any chest pain, dyspnea, or shortness of breath. D-dimer pending (pt aware we do not have the result prior to her discharge which may require her to return for CTA of the chest). Pt aware of the risk/benefit of leaving AMA and the possibility of PE. No further labs or imaging warranted at this time as reviewed with Dr. Salas. Patient's presentation and symptomatology creates low suspicion for acute intracranial process, ACS, pneumothorax, pericarditis, dissection, respiratory compromise, severe dehydration, sepsis, meningitis, or other systemic emergent condition at this time. Patient is aware that this condition can change from initial presentation and she needs to monitor symptoms closely and seek medical attention for any acute changes. Recommend conservative measures for symptoms. Recheck with your PCM in 2-3 days. Schedule consult with Cardiology. Return to the ED with any worsening/ concerning symptoms otherwise as reviewed in discharge. Patient is in agreement. - Vital Signs Vital signs: Temp Pulse Resp BP Pulse Ox 98.3 F 100 16 123/73 100 06/25/18 14:22 06/25/18 14:22 06/25/18 14:22 06/25/18 14:22 06/25/18 14:22 - Laboratory Result Diagrams: 06/25/18 15:20 06/25/18 15:20 Laboratory results interpreted by me: 06/25/18 06/25/18 15:20 15:20 RBC 5.33 H MCV 73 L MCH 23.0 L MCHC 31.7 L RDW 24.9 H Sodium 146.1 H Calcium 10.9 H Total Protein 8.3 H Albumin 5.3 H Discharge - Discharge Clinical Impression: POTS (postural orthostatic tachycardia syndrome) Episode of syncope Qualifiers: Syncope type: unspecified Qualified Code(s): R55 - Syncope and collapse Condition: Stable Disposition: AGAINST MEDICAL ADVICE Instructions: Syncopal Episode ([facility]) Additional Instructions: You have elected to sign out AMA. You are aware that things can worsen that could lead to bodily injury and/or . Do not hesitate to return the emergency department for any worsening/concerning symptoms. Your d-dimer is pending and you may need to return for a CTA of the chest if it is positive* Maintain adequate fluid and food intake Take home medications as directed Low sodium/fat diet Exercise regularly Weight control Monitor blood pressure daily/Heart rate and keep a log Monitor symptoms for any acute changes Recheck with your PCM/Cardio in 2-3 days Return to the ED with any worsening symptoms and/or development of fever, headache, chest pain, palpitations, syncope, shortness of breath, trouble breathing, abdominal pain, n/v/d, blood in stool/urine, loss of control of bowel /bladder, urinary retention, muscle weakness/paralysis, numbness/tingling, or other worsening symptoms that are concerning to you. Referrals: ROCIO VALDIVIA FNP-C [Primary Care Provider] - 06/27/18
[2018-06-25 19:55] VITALS: BP 124/68
--- NOTE | 2018-06-26 10:33 | EKG REPORT ---
SEVERITY:- ABNORMAL ECG - SINUS TACHYCARDIA BORDERLINE RIGHT AXIS DEVIATION INFERIOR Q WAVES, PROBABLY NORMAL VARIATION BORDERLINE T ABNORMALITIES, INFERIOR LEADS : Confirmed by: Whitley Arenas 26-Jun-2018 10:32:45
== END 2018-06-25 17:10 | disposition left against medical advice (07) ==
LOC: ER 14:04
DX: I49.8 Other specified cardiac arrhythmias (principal); R55 Syncope and collapse; R10.2 Pelvic and perineal pain; I10 Essential (primary) hypertension; Z88.1 Allergy status to other antibiotic agents; Z91.048 Other nonmedicinal substance allergy status; Z91.040 Latex allergy status; Z88.8 Allergy status to other drugs, medicaments and biological substances; Z88.5 Allergy status to narcotic agent; Z87.42 Personal history of other diseases of the female genital tract; Z90.49 Acquired absence of other specified parts of digestive tract; Z53.29 Procedure and treatment not carried out because of patient's decision for other reasons
CPT/HCPCS: 93005; 99284; 96360; 36415; 85025; 80053; 81001; 85379; 93010; J7030

== ENCOUNTER 2018-09-22 14:32 | Emergency (ER) | payer MEDICAID ==
--- NOTE | 2018-09-22 15:45 | ER Document Report ---
ED Medical Screen (RME) - General Chief Complaint: Chest Pain Stated Complaint: CHEST PAIN Time Seen by Provider: 09/22/18 15:42 Primary Care Provider: ROCIO VALDIVIA FNP-C [Primary Care Provider] - Follow up as needed Mode of Arrival: Ambulatory Information source: Patient Notes: 22-year-old female presents to ED for complaint of fast heartbeat chest pain sugar of 60s when she went to the fire station due to the tremors shaking and dizziness. Pulse rate was 110 in the emergency room but when I checked it while talking to her she went down to [id number]. Patient has a history of POTS, Quinten- Danlos syndrome, anxiety, she is also had her tonsils out surgery to the left knee for MRSA, gallbladder, and a D&C. She states she does have a history of a blood sugar running in the 110s but never in the 60s. She states her sister is a type I diabetic. I have greeted and performed a rapid initial assessment of this patient. A comprehensive ED assessment and evaluation of the patient, analysis of test results and completion of medical decision making process will be conducted by an additional ED providers. TRAVEL OUTSIDE OF THE [place] IN LAST 30 DAYS: No - Related Data Allergies/Adverse Reactions: azithromycin [From Zithromax Z-Mark] Allergy (Mild, Verified 06/25/18 14:05) rash adhesive [Adhesive] Allergy (Verified 06/25/18 14:05) codeine [Codeine] Allergy (Verified 06/25/18 14:05) ITCHING, HIVES latex [Latex] Allergy (Verified 06/25/18 14:05) metoclopramide [From Reglan] Allergy (Verified 06/25/18 14:05) morphine [Morphine] Allergy (Verified 06/25/18 14:05) ITCHING, HIVES diphenhydramine [From Benadryl] Adverse Reaction (Verified 06/25/18 14:05) Tachycardia Past Medical History - Social History Chew tobacco use (# tins/day): No Frequency of alcohol use: None Drug Abuse: None - Past Medical History Cardiac Medical History: Reports: Hx Hypertension - KEN SYNDROME/murmur Pulmonary Medical History: Denies: Hx Asthma Renal/ Medical History: Reports: Hx Ovarian Cysts. Denies: Hx Peritoneal Dialysis Musculoskeltal Medical History: Reports Hx Musculoskeletal Trauma Skin Medical History: Reports Hx Eczema Psychiatric Medical History: Reports: Hx Anxiety, Hx Attention Deficit Hyperac tivity Disorder, Hx Depression Past Surgical History: Reports: Hx Cholecystectomy, Hx Gynecologic Surgery - D&C x 2, Hx Orthopedic Surgery - left knee, Hx Tonsillectomy - Immunizations Immunizations up to date: Yes Hx Diphtheria, Pertussis, Tetanus Vaccination: Yes History of Influenza Vaccine for 04/2017 - 09/2017 Season: No Physical Exam - Vital signs Vitals: Temp Pulse Resp BP Pulse Ox 98.5 F 113 H 16 129/76 H 100 09/22/18 14:48 09/22/18 14:48 09/22/18 14:48 09/22/18 14:48 09/22/18 14:48 Course - Vital Signs Vital signs: Temp Pulse Resp BP Pulse Ox 98.5 F 98 16 129/76 H 100 09/22/18 14:48 09/22/18 15:40 09/22/18 14:48 09/22/18 14:48 09/22/18 14:48 Doctor's Discharge - Discharge Referrals: ROCIO VALDIVIA FNP-C [Primary Care Provider] - Follow up as needed
[2018-09-22 16:00] LABS: ABSOLUTE BASOPHILS # (AUTO) 0.1 10^3/uL (0.0-0.2); ABSOLUTE LYMPHOCYTES (AUTO) 1.1 10^3/uL (0.5-4.7); ABSOLUTE MONOCYTES (AUTO) 0.7 10^3/uL (0.1-1.4); ABSOLUTE NEUT (AUTO) 10.9 10^3/uL (1.7-8.2); BASOPHILS % (AUTO) 0.4 % (0-2); EOSINOPHILS % (AUTO) 0.3 % (0-6); HEMATOCRIT 37.7 % (36.0-47.0); HEMOGLOBIN 12.5 g/dL (12.0-15.5); LYMPHOCYTES % (AUTO) 8.5 % (13-45); MEAN CORPUSCULAR HEMOGLOBIN 27.2 pg (27.0-33.4); MEAN CORPUSCULAR VOLUME 82 fl (80-97); MONOCYTES % (AUTO) 5.8 % (3-13); PLATELET COUNT 323 10^3/uL (150-450); RED BLOOD COUNT 4.58 10^6/uL (3.72-5.28); RED CELL DISTRIBUTION WIDTH 14.5 % (11.5-14.0); TOTAL CELLS COUNTED % (AUTO) 100 %; WHITE BLOOD COUNT 12.8 10^3/uL (4.0-10.5)
[2018-09-22 16:05] LABS: APPEARANCE,URINE CLEAR; BILIRUBIN,URINE NEGATIVE (NEGATIVE); COLOR,URINE STRAW; GLUCOSE, URINE NEGATIVE (NEGATIVE); KETONES,URINE NEGATIVE (NEGATIVE); LEUKOCYTE ESTERASE,URINE NEGATIVE (NEGATIVE); NITRITE,URINE NEGATIVE (NEGATIVE); PROTEIN,URINE NEGATIVE (NEGATIVE); UROBILINOGEN,URINE NEGATIVE mg/dL (<2.0)
[2018-09-22 16:16] LABS: ALANINE AMINOTRANSFERASE 23 U/L (9-52); ALBUMIN 4.9 g/dL (3.5-5.0); ALKALINE PHOSPHATASE 77 U/L (38-126); ANION GAP 12 (5-19); ASPARTATE AMINO TRANSFERASE 20 U/L (14-36); BILIRUBIN,DIRECT 0.2 mg/dL (0.0-0.4); BILIRUBIN,TOTAL 0.9 mg/dL (0.2-1.3); BLOOD UREA NITROGEN 10 mg/dL (7-20); CALCIUM 10.4 mg/dL (8.4-10.2); CARBON DIOXIDE 24 mmol/L (22-30); CHLORIDE 105 mmol/L (98-107); GLUCOSE 91 mg/dL (75-110); LIPASE 77.6 U/L (23-300); POTASSIUM 4.1 mmol/L (3.6-5.0); SODIUM 140.7 mmol/L (137-145); TOTAL PROTEIN 7.6 g/dL (6.3-8.2)
--- NOTE | 2018-09-22 16:28 | RADIOLOGY REPORT (SQ) ---
EXAM DESCRIPTION: CHEST 2 VIEWS COMPLETED DATE/TIME: 09/22/2018 4:18 pm REASON FOR STUDY: chest/ right upper abd pain COMPARISON: None. TECHNIQUE: Frontal and lateral radiographic views of the chest acquired. NUMBER OF VIEWS: Two view. LIMITATIONS: None. FINDINGS: LUNGS AND PLEURA: No opacities, masses or pneumothorax. No pleural effusion. MEDIASTINUM AND HILAR STRUCTURES: No masses or contour abnormalities. HEART AND VASCULAR STRUCTURES: Heart normal size. No evidence for failure. BONES: No acute findings. HARDWARE: None in the chest. OTHER: No other significant finding. IMPRESSION: NO SIGNIFICANT RADIOGRAPHIC FINDING IN THE CHEST. TECHNICAL DOCUMENTATION: JOB ID: [id number] [employer]- All Rights Reserved Reading location - IP/workstation name: [email or web address]
--- NOTE | 2018-09-22 18:12 | EKG REPORT ---
SEVERITY:- ABNORMAL ECG - SINUS TACHYCARDIA BORDERLINE RIGHT AXIS DEVIATION NONSPECIFIC T ABNORMALITIES, INFERIOR LEADS : Confirmed by: Nelly Lebron MD 22-Sep-2018 18:12:13
--- NOTE | 2018-09-22 20:04 | ER Document Report ---
ED General - General Chief Complaint: Chest Pain Stated Complaint: CHEST PAIN Time Seen by Provider: 09/22/18 15:42 Primary Care Provider: ROCIO VALDIVIA FNP-C [NO LOCAL MD] - Follow up as needed Mode of Arrival: Ambulatory Notes: 22-year-old female patient emergency department chief complaint of chest pain and palpitations, anxiety, possible panic attack and low blood sugar. Patient has a long-standing history of anxiety. History of pots disease. 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 States that she was driving in the common felt a hot flash. Continue to have her symptoms. EMS was called. EMS got there and did an Accu-Chek. Blood sugar was reportedly in the 60s and 70s. Patient was given some glucose drink. States that she feels fine at this time. Symptoms began at approximately 11:00. Does complain of intermittent pain in the chest. TRAVEL OUTSIDE OF THE [place] IN LAST 30 DAYS: No - HPI Onset: Just prior to arrival Onset/Duration: Sudden Severity: Moderate Pain Level: 1 Associated symptoms: Chest pain, Sweating Similar symptoms previously: Yes - Related Data Allergies/Adverse Reactions: azithromycin [From Zithromax Z-Mark] Allergy (Mild, Verified 06/25/18 14:05) rash adhesive [Adhesive] Allergy (Verified 06/25/18 14:05) codeine [Codeine] Allergy (Verified 06/25/18 14:05) ITCHING, HIVES latex [Latex] Allergy (Verified 06/25/18 14:05) metoclopramide [From Reglan] Allergy (Verified 06/25/18 14:05) morphine [Morphine] Allergy (Verified 06/25/18 14:05) ITCHING, HIVES diphenhydramine [From Benadryl] Adverse Reaction (Verified 06/25/18 14:05) Tachycardia Past Medical History - General Information source: Patient - Social History Smoking Status: Never Smoker Chew tobacco use (# tins/day): No Frequency of alcohol use: None Drug Abuse: None Lives with: Spouse/Significant other Family History: Reviewed & Not Pertinent, CVA, Hyperlipidemia, Hypertension, Other - Lupus, [place] Patient has suicidal ideation: No Patient has homicidal ideation: No - Past Medical History Cardiac Medical History: Reports: Hx Hypertension - KEN SYNDROME/murmur Pulmonary Medical History: Denies: Hx Asthma Renal/ Medical History: Reports: Hx Ovarian Cysts. Denies: Hx Peritoneal Dialysis Musculoskeletal Medical History: Reports Hx Musculoskeletal Trauma Skin Medical History: Reports Hx Eczema Psychiatric Medical History: Reports: Hx Anxiety, Hx Attention Deficit Hyperactivity Disorder, Hx Depression Past Surgical History: Reports: Hx Cholecystectomy, Hx Gynecologic Surgery - D&C x 2, Hx Orthopedic Surgery - left knee, Hx Tonsillectomy - Immunizations Immunizations up to date: Yes Hx Diphtheria, Pertussis, Tetanus Vaccination: Yes Review of Systems - Review of Systems Notes: Constitutional: denies: Chills, Diaphoresis, Fever, Malaise, Weakness EENT: denies: Eye discharge, Blurred vision, Tearing, Double vision, Nose congestion, Nose discharge, Throat swelling, Mouth pain Cardiovascular: denies: Palpitations, +Heart racing, Orthopnea, Dyspnea, +Chest pain Respiratory: denies: Cough, Hurts to breathe, Wheezing, Shortness of breath Gastrointestinal: denies: Abdominal pain, Diarrhea, Nausea, Vomiting, Black stools, bright red blood in stool Genitourinary: denies: Burning, Dysuria, Discharge, Frequency, Flank pain, Hematuria Musculoskeletal: denies: Joint pain, Joint swelling, Muscle pain, Muscle stiffness, back pain Hematologic/Lymphatic: denies: Anemia, Easy bleeding, Easy bruising, Blood clots Neurological/Psychological: denies: Confusion, Dementia, Depression, Loss of consciousness Skin: No lesions, no masses, no skin breakdown, no abscesses Physical Exam - Vital signs Vitals: Temp Pulse Resp BP Pulse Ox 98.5 F 113 H 16 129/76 H 100 09/22/18 14:48 09/22/18 14:48 09/22/18 14:48 09/22/18 14:48 09/22/18 14:48 Interpretation: Normal - General General appearance: Appears well, Alert - HEENT Head: Normocephalic, Atraumatic Eyes: Normal Pupils: PERRL Notes: No thyromegaly. No obvious thyroid masses. - Respiratory Respiratory status: No respiratory distress Chest status: Nontender Breath sounds: Normal Chest palpation: Normal - Cardiovascular Rhythm: Regular Heart sounds: Normal auscultation Murmur: No - Abdominal Inspection: Normal Distension: No distension Bowel sounds: Normal Tenderness: Nontender Organomegaly: No organomegaly - Back Back: Normal, Nontender - Extremities General upper extremity: Normal inspection, Nontender, Normal color, Normal ROM, Normal temperature General lower extremity: Normal inspection, Nontender, Normal color, Normal ROM, Normal temperature, Normal weight bearing. No: Esequiel's sign - Neurological Neuro grossly intact: Yes Cognition: Normal Orientation: AAOx4 Edda Coma Scale Eye Opening: Spontaneous [place] Coma Scale Verbal: Oriented Edda Coma Scale Motor: Obeys Commands Edda Coma Scale Total: 15 Speech: Normal Motor strength normal: LUE, RUE, LLE, RLE Sensory: Normal - Psychological Associated symptoms: Normal affect, Normal mood - Skin Skin Temperature: Warm Skin Moisture: Dry Skin Color: Normal Course - Re-evaluation Re-evalutation: 09/22/18 20:04 Patient has chronically suppressed TSH being followed currently by endocrinology getting worked up currently for hyperthyroidism so do not feel that when he to intervene in this current workup had notable suppressed TSHs. Reportedly her T4 is have been normal however. Patient has severe anxiety. Has history of pots disease. Currently at this time patient is asymptomatic. Reportedly had hypoglycemia but has not had anything to eat today since 11:00 and is breast-f eeding. Patient has no risk factors for DVT or pulmonary embolism. Previous d- dimer was evaluated here which was negative. I have expressed my concerns about her TSH and free T4 getting checked and she needs urgent follow-up. I advised her to eat more regularly as she is breast-feeding and she is prone for hypoglycemia. Patient verbalized understanding of instructions. Physical exam is unremarkable. EKG was reviewed. test was negative. Will DC at this time in stable condition. Laboratory 09/22/18 09/22/18 09/22/18 15:27 15:52 15:52 WBC 12.8 H RBC 4.58 Hgb 12.5 Hct 37.7 MCV 82 MCH 27.2 MCHC 33.0 RDW 14.5 H Plt Count 323 Seg Neutrophils % 85.0 H Lymphocytes % 8.5 L Monocytes % 5.8 Eosinophils % 0.3 Basophils % 0.4 Absolute Neutrophils 10.9 H Absolute Lymphocytes 1.1 Absolute Monocytes 0.7 Absolute Eosinophils 0.0 Absolute Basophils 0.1 Sodium 140.7 Potassium 4.1 Chloride 105 Carbon Dioxide 24 Anion Gap 12 BUN 10 Creatinine 0.80 Est GFR ( Amer) > 60 Est GFR (Non-Af Amer) > 60 Glucose 91 POC Glucose 95 Calcium 10.4 H Total Bilirubin 0.9 Direct Bilirubin 0.2 Neonat Total Bilirubin Not Reportable Neonat Direct Bilirubin Not Reportable Neonat Indirect Bili Not Reportable AST 20 ALT 23 Alkaline Phosphatase 77 Total Protein 7.6 Albumin 4.9 Lipase 77.6 TSH Serum HCG, Qual Urine Color Urine Appearance Urine pH Ur Specific [place] Urine Protein Urine Glucose (UA) Urine Ketones Urine Blood Urine Nitrite Urine Bilirubin Urine Urobilinogen Ur Leukocyte Esterase Urine RBC (Auto) Squamous Epi Cells Auto Urine Mucus (Auto) Urine Ascorbic Acid 09/22/18 09/22/18 09/22/18 15:52 15:52 15:52 WBC RBC Hgb Hct MCV MCH MCHC RDW Plt Count Seg Neutrophils % Lymphocytes % Monocytes % Eosinophils % Basophils % Absolute Neutrophils Absolute Lymphocytes Absolute Monocytes Absolute Eosinophils Absolute Basophils Sodium Potassium Chloride Carbon Dioxide Anion Gap BUN Creatinine Est GFR ( Amer) Est GFR (Non-Af Amer) Glucose POC Glucose Calcium Total Bilirubin Direct Bilirubin Neonat Total Bilirubin Neonat Direct Bilirubin Neonat Indirect Bili AST ALT Alkaline Phosphatase Total Protein Albumin Lipase TSH 0.21 L Serum HCG, Qual NEGATIVE Urine Color STRAW Urine Appearance CLEAR Urine pH 6.0 Ur Specific [place] 1.010 Urine Protein NEGATIVE Urine Glucose (UA) NEGATIVE Urine Ketones NEGATIVE Urine Blood NEGATIVE Urine Nitrite NEGATIVE Urine Bilirubin NEGATIVE Urine Urobilinogen NEGATIVE Ur Leukocyte Esterase NEGATIVE Urine RBC (Auto) 0 Squamous Epi Cells Auto 3 Urine Mucus (Auto) MOD Urine Ascorbic Acid NEGATIVE 09/22/18 18:34 WBC RBC Hgb Hct MCV MCH MCHC RDW Plt Count Seg Neutrophils % Lymphocytes % Monocytes % Eosinophils % Basophils % Absolute Neutrophils Absolute Lymphocytes Absolute Monocytes Absolute Eosinophils Absolute Basophils Sodium Potassium Chloride Carbon Dioxide Anion Gap BUN Creatinine Est GFR ( Amer) Est GFR (Non-Af Amer) Glucose POC Glucose 84 Calcium Total Bilirubin Direct Bilirubin Neonat Total Bilirubin Neonat Direct Bilirubin Neonat Indirect Bili AST ALT Alkaline Phosphatase Total Protein Albumin Lipase TSH Serum HCG, Qual Urine Color Urine Appearance Urine pH Ur Specific [place] Urine Protein Urine Glucose (UA) Urine Ketones Urine Blood Urine Nitrite Urine Bilirubin Urine Urobilinogen Ur Leukocyte Esterase Urine RBC (Auto) Squamous Epi Cells Auto Urine Mucus (Auto) Urine Ascorbic Acid - Vital Signs Vital signs: Temp Pulse Resp BP Pulse Ox 97.8 F 75 16 116/69 100 09/22/18 20:23 09/22/18 20:23 09/22/18 20:23 09/22/18 20:23 09/22/18 20:23 - Laboratory Result Diagrams: 09/22/18 15:52 09/22/18 15:52 Laboratory results interpreted by me: 09/22/18 09/22/18 09/22/18 15:52 15:52 15:52 WBC 12.8 H RDW 14.5 H Seg Neutrophils % 85.0 H Lymphocytes % 8.5 L Absolute Neutrophils 10.9 H Calcium 10.4 H TSH 0.21 L - EKG Interpretation by Me EKG shows normal: [place] Line, Intervals, QRS Complexes, ST-T Waves Rate: Tachycardia Discharge - Discharge Clinical Impression: Hypoglycemia, Tachycardia Condition: Good Disposition: HOME, SELF-CARE Instructions: Chest Pain of Unclear Cause ([facility]), Palpitations (Irregular or Rapid Heartrate) ([facility]) Additional Instructions: Please urgently follow-up with your wafer line worker. Your TSH was low again today. Continue to follow the recommendations of her regular doctors. Eat more frequently as her blood sugar was reportedly low by EMS. In the event that your symptoms are getting worse or you have concerns please do not hesitate to retu rn. Avoid stimulation substances such as caffeine or other stimulants. Of note, your test was negative. Referrals: ROCIO VALDIVIA FNP-C [NO LOCAL MD] - Follow up as needed
[2018-09-22 20:27] VITALS: BP 116/69
== END 2018-09-22 20:28 | disposition home or self-care (01) ==
LOC: ER 14:32
DX: E16.2 Hypoglycemia, unspecified (principal); R00.0 Tachycardia, unspecified; R07.9 Chest pain, unspecified; R00.2 Palpitations; F41.9 Anxiety disorder, unspecified; I10 Essential (primary) hypertension; Z88.3 Allergy status to other anti-infective agents; Z91.040 Latex allergy status; Z88.6 Allergy status to analgesic agent; Z90.49 Acquired absence of other specified parts of digestive tract
CPT/HCPCS: 36415; 71046; 80053; 81001; 82962; 83690; 84443; 84703; 85025; 93005; 93010; 99285

== ENCOUNTER 2018-10-19 17:30 | Emergency (ER) | payer MEDICAID ==
[2018-10-19] MEDS ORDERED: NORMAL SALINE 1000 ML 1,000 ML IV ONE (17:44)
[2018-10-19] MEDS ORDERED: LORAZEPAM INJ 2 MG/1 ML VIAL IV ONE (17:45)
--- NOTE | 2018-10-19 17:50 | ER Document Report ---
ED Medical Screen (RME) - General TRAVEL OUTSIDE OF THE U.S. IN LAST 30 DAYS: No <CAMRON CUEVAS - Last Filed: 10/19/18 17:49> <SHARON MAIER - Last Filed: 10/19/18 23:21> - General Stated Complaint: POSSIBLE SYNCOPE Time Seen by Provider: 10/19/18 17:44 Primary Care Provider: JOSE LUIS CRAIG DO [NO LOCAL MD] - Follow up as needed Notes: This 22-year-old female patient comes emergency room by EMS for syncopal episode followed by tachycardia. She has a history of POTS. She does have anxiety issues, but does not take medication for this. Today she was sitting at the table eating, when she had a syncopal episode and 911 was called. When they arrived the patient was tachycardic. In route to the hospital her rate came down from about 140-124 most of the trip. At this time it is back up to 140. He does appear to be a sinus tachycardia. She does state that when this occurs she can usually calm herself down and bring it under control, but it is worse today and she is unable to do that. She does appear quite anxious. I have greeted and performed a rapid initial assessment of this patient. A comprehensive ED assessment and evaluation of the patient, analysis of test results and completion of the medical decision making process will be conducted by additional ED providers. (CAMRON CUEVAS) - Related Data Allergies/Adverse Reactions: azithromycin [From Zithromax Z-Mark] Allergy (Mild, Verified 06/25/18 14:05) rash adhesive [Adhesive] Allergy (Verified 06/25/18 14:05) codeine [Codeine] Allergy (Verified 06/25/18 14:05) ITCHING, HIVES latex [Latex] Allergy (Verified 06/25/18 14:05) metoclopramide [From Reglan] Allergy (Verified 06/25/18 14:05) morphine [Morphine] Allergy (Verified 06/25/18 14:05) ITCHING, HIVES diphenhydramine [From Benadryl] Adverse Reaction (Verified 06/25/18 14:05) Tachycardia Past Medical History - Past Medical History Cardiac Medical History: Reports: Hx Hypertension - KEN SYNDROME/murmur Pulmonary Medical History: Denies: Hx Asthma Renal/ Medical History: Reports: Hx Ovarian Cysts. Denies: Hx Peritoneal Dialysis Musculoskeltal Medical History: Reports Hx Musculoskeletal Trauma Skin Medical History: Reports Hx Eczema Psychiatric Medical History: Reports: Hx Anxiety, Hx Attention Deficit Hyperactivity Disorder, Hx Depression Past Surgical History: Reports: Hx Cholecystectomy, Hx Gynecologic Surgery - D&C x 2, Hx Orthopedic Surgery - left knee, Hx Tonsillectomy - Immunizations Immunizations up to date: Yes Hx Diphtheria, Pertussis, Tetanus Vaccination: Yes History of Influenza Vaccine for 04/2017 - 09/2017 Season: No <CAMRON CUEVAS - Last Filed: 10/19/18 17:49> - Vital signs Vitals: Temp Resp Pulse Ox 99.5 F 22 H 98 10/19/18 17:37 10/19/18 17:37 10/19/18 17:37 Course - Laboratory Result Diagrams: 10/19/18 17:50 10/19/18 17:50 <SHARON MAIER - Last Filed: 10/19/18 23:21> - Vital Signs Vital signs: Temp Pulse Resp BP Pulse Ox 99.5 F 106 H 19 111/65 98 10/19/18 17:37 10/19/18 19:45 10/19/18 22:00 10/19/18 21:00 10/19/18 22:00 - Laboratory Laboratory results interpreted by me: 10/19/18 10/19/18 10/19/18 17:50 17:50 17:50 Hct 35.7 L RDW 14.7 H Glucose 120 H Urine Urobilinogen 2.0 H Doctor's Discharge <CAMRON CUEVAS - Last Filed: 10/19/18 17:49> <SHARON MAIER - Last Filed: 10/19/18 23:21> - Discharge Clinical Impression: Tachycardia Syncope Qualifiers: Syncope type: unspecified Qualified Code(s): R55 - Syncope and collapse Condition: Good Disposition: HOME, SELF-CARE Instructions: Syncopal Episode ([facility]) Additional Instructions: You have been evaluated in the Emergency Department for episodes of palpitations along with passing out. While here, you had blood work that was normal and urinalysis that did not show evidence of infection or and it is now safe to be discharged home. Please follow-up with your primary physician as instructed in 1 week to be rechecked. Return to the Emergency Department if you experience chest pain, further episodes of passing out, uncontrollable heart rate, or any other concerning symptoms. Referrals: JOSE LUIS CRAIG DO [NO LOCAL MD] - Follow up as needed Print Language: Nigerien
--- NOTE | 2018-10-19 18:13 | ER Document Report ---
ED Syncope and Near Syncope - General Stated Complaint: POSSIBLE SYNCOPE Time Seen by Provider: 10/19/18 18:13 Primary Care Provider: JOSE LUIS CRAIG DO [NO LOCAL MD] - Follow up as needed Mode of Arrival: Ambulatory Information source: Patient Notes: HISTORY OF PRESENT ILLNESS: Patient is a 22-year-old female with a past medical history of postural orthostatic tachycardia syndrome who presents with palpitations and possible syncopal episode prior to arrival. Patient also reports headache but denies any confusion or disorientation, vision changes, or ataxia. She denies recent head injuries. Patient does report she is approximately 1 month late on her period and reports having unprotected sex. Location: Chest Onset: Sudden Alleviation: None Provocation: Unknown Quality: "My heart was racing" Radiation: None Severity: Moderate Timing: Episodic, resolved History of CAD: None Associated symptoms: No fevers or chills, no cough or congestion, no nausea or vomiting REVIEW OF SYSTEMS: CONSTITUTIONAL : Denies fever or chills, no sweats. Denies recent illness. EENT: Denies eye, ear, throat, or mouth pain or symptoms. Denies nasal or sinus congestion. CARDIOVASCULAR: Positive for palpitations and syncope. Denies chest pain. Denies swelling of the legs. RESPIRATORY: Denies cough, cold, or chest congestion. Denies shortness of breath or difficulty breathing. Denies wheezing. GASTROINTESTINAL: Denies abdominal pain. Denies nausea, vomiting, or diarrhea. Denies constipation. GENITOURINARY: Denies difficulty urinating, painful urination, burning, frequency, or blood in urine. FEMALE GENITOURINARY: Denies vaginal bleeding. Last menstrual period was a month ago. MUSCULOSKELETAL: Denies neck or back pain or joint pain or swelling. SKIN: Denies rash or skin lesions. HEMATOLOGIC : Denies easy bruising or bleeding. LYMPHATIC: Denies swollen, enlarged glands. NEUROLOGICAL: Denies altered mental status or loss of consciousness. Denies headache. Denies weakness or paralysis or loss of use of either side. Denies problems with gait or speech. Denies sensory or motor loss. PSYCHIATRIC: Denies anxiety or stress or depression. All other systems reviewed and negative. PHYSICAL EXAMINATION: GENERAL: Well-appearing, well-nourished and in no acute distress. HEAD: Atraumatic, normocephalic. No scalp deformity, depression, or crepitance. EYES: Pupils are 3 mm and equal/round/reactive to light, extraocular movements intact, sclera anicteric, conjunctiva are normal. ENT: Nares patent bilaterally, oropharynx. Moist mucous membranes. No tonsil hypertrophy. NECK: Normal range of motion, supple without lymphadenopathy. LUNGS: Breath sounds present, equal, and clear to auscultation bilaterally. No wheezes, rales, or rhonchi. HEART: Tachycardia, rhythm without murmurs, rubs, or gallops. 2+ peripheral pulses. Normal capillary refill. ABDOMEN: Soft, nontender, nondistended. Normoactive bowel sounds. No guarding, no rebound. No masses appreciated. BACK: Normal contour, no midline tenderness. Rectal exam deferred. GENITAL/PELVIC: Deferred. EXTREMITIES: Normal range of motion, no pitting or edema. No cyanosis. NEUROLOGICAL: No focal neurological deficits. Moves all extremities spontaneously and on command. PSYCH: Normal mood, normal affect. No suicidal thoughts/ideations. No homocidal thoughts/ideations. No hallucinations. SKIN: Warm, dry, normal turgor, no rashes or lesions noted. ASSESSMENT AND PLAN: This patient is a 22-year-old female who presents with palpitations with possible syncopal episode that is most likely related to her POTS, but could also be related to UTI versus versus dehydration versus anxiety versus hypoglycemia. 1. Will obtain labs, urine, drug screen, test, and give IV fluids with IV metoprolol. 2. Patient has already received IV Ativan with minimal improvement. TRAVEL OUTSIDE OF THE [place] IN LAST 30 DAYS: No - Related Data Allergies/Adverse Reactions: azithromycin [From Zithromax Z-Mark] Allergy (Mild, Verified 06/25/18 14:05) rash adhesive [Adhesive] Allergy (Verified 06/25/18 14:05) codeine [Codeine] Allergy (Verified 06/25/18 14:05) ITCHING, HIVES latex [Latex] Allergy (Verified 06/25/18 14:05) metoclopramide [From Reglan] Allergy (Verified 06/25/18 14:05) morphine [Morphine] Allergy (Verified 06/25/18 14:05) ITCHING, HIVES diphenhydramine [From Benadryl] Adverse Reaction (Verified 06/25/18 14:05) Tachycardia Past Medical History - General Information source: Patient - Social History Smoking Status: Never Smoker Chew tobacco use (# tins/day): No Frequency of alcohol use: None Drug Abuse: None Lives with: Family Family History: Reviewed & Not Pertinent, CVA, Hyperlipidemia, Hypertension, Other - Lupus, [place] Patient has suicidal ideation: No Patient has homicidal ideation: No - Past Medical History Cardiac Medical History: Reports: Hx Hypertension - KEN SYNDROME/murmur Pulmonary Medical History: Reports: None Denies: Hx Asthma EENT Medical History: Reports: None Neurological Medical History: Reports: None Endocrine Medical History: Reports: None Renal/ Medical History: Reports: Hx Ovarian Cysts. Denies: Hx Peritoneal Angelica lysis Malignancy Medical History: Reports: None GI Medical History: Reports: None Musculoskeletal Medical History: Reports Hx Musculoskeletal Trauma Skin Medical History: Reports Hx Eczema Psychiatric Medical History: Reports: Hx Anxiety, Hx Attention Deficit Hyperactivity Disorder, Hx Depression Traumatic Medical History: Reports: None Infectious Medical History: Reports: None Past Surgical History: Reports: Hx Cholecystectomy, Hx Gynecologic Surgery - D&C x 2, Hx Orthopedic Surgery - left knee, Hx Tonsillectomy - Immunizations Immunizations up to date: Yes Hx Diphtheria, Pertussis, Tetanus Vaccination: Yes Physical Exam - Vital signs Vitals: Temp Resp Pulse Ox 99.5 F 22 H 98 10/19/18 17:37 10/19/18 17:37 10/19/18 17:37 Course - Re-evaluation Re-evalutation: 10/19/18 23:00 Workup is unremarkable. Patient will be discharged home with return precautions and follow-up as needed. Patient voices both understanding and agreeing with the plan. - Vital Signs Vital signs: Temp Pulse Resp BP Pulse Ox 99.5 F 106 H 19 111/65 98 10/19/18 17:37 10/19/18 19:45 10/19/18 22:00 10/19/18 21:00 10/19/18 22:00 - Laboratory Result Diagrams: 10/19/18 17:50 10/19/18 17:50 Laboratory results interpreted by me: 10/19/18 10/19/18 10/19/18 17:50 17:50 17:50 Hct 35.7 L RDW 14.7 H Glucose 120 H Urine Urobilinogen 2.0 H - EKG Interpretation by Me EKG shows normal: Sinus rhythm Rate: Tachycardia Rhythm: NSR [place]/QRS: No: Right axis deviation, Left axis deviation, RBBB, LBBB, IVCD, LAHB/LAFB, LPHB/LPFB, Bifasicular block Voltage: No: Increased voltage, Consistant with LVH, Decreased voltage, Throughout, Limb leads P Waves: No: ZECHARIAH, LAE, Absent, AV Dissociation, Other Heart block present: No: 1st Degree, Mobitz 1, Mobitz 2, CHB (3rd degree block) When compared to previous EKG there are: No significant change Discharge - Discharge Clinical Impression: Tachycardia Syncope Qualifiers: Syncope type: unspecified Qualified Code(s): R55 - Syncope and collapse Condition: Good Disposition: HOME, SELF-CARE Instructions: Syncopal Episode ([facility]) Additional Instructions: You have been evaluated in the Emergency Department for episodes of palpitations along with passing out. While here, you had blood work that was normal and urinalysis that did not show evidence of infection or and it is now safe to be discharged home. Please follow-up with your primary physician as instructed in 1 week to be rechecked. Return to the Emergency Department if you experience chest pain, further episodes of passing out, uncontrollable heart rate, or any other concerning symptoms. Referrals: JOSE LUIS CRAIG DO [NO LOCAL MD] - Follow up as needed Print Language: Albanian
[2018-10-19 18:25] LABS: ABSOLUTE BASOPHILS # (AUTO) 0.1 10^3/uL (0.0-0.2); ABSOLUTE EOSINOPHILS # (AUTO) 0.1 10^3/uL (0.0-0.6); ABSOLUTE LYMPHOCYTES (AUTO) 1.6 10^3/uL (0.5-4.7); ABSOLUTE MONOCYTES (AUTO) 0.6 10^3/uL (0.1-1.4); ABSOLUTE NEUT (AUTO) 4.5 10^3/uL (1.7-8.2); BASOPHILS % (AUTO) 0.8 % (0-2); HEMATOCRIT 35.7 % (36.0-47.0); LYMPHOCYTES % (AUTO) 23.3 % (13-45); MEAN CORPUSCULAR HGB CONC 33.5 g/dL (32.0-36.0); MEAN CORPUSCULAR VOLUME 83 fl (80-97); PLATELET COUNT 308 10^3/uL (150-450); RED BLOOD COUNT 4.28 10^6/uL (3.72-5.28); RED CELL DISTRIBUTION WIDTH 14.7 % (11.5-14.0); SEGMENTED NEUTROPHILS % (AUTO) 64.9 % (42-78); TOTAL CELLS COUNTED % (AUTO) 100 %; WHITE BLOOD COUNT 6.9 10^3/uL (4.0-10.5)
[2018-10-19 18:41] LABS: ALANINE AMINOTRANSFERASE 17 U/L (9-52); ALBUMIN 4.2 g/dL (3.5-5.0); ALKALINE PHOSPHATASE 68 U/L (38-126); ANION GAP 9 (5-19); ASPARTATE AMINO TRANSFERASE 18 U/L (14-36); BILIRUBIN,DIRECT 0.2 mg/dL (0.0-0.4); BILIRUBIN,TOTAL 0.5 mg/dL (0.2-1.3); BLOOD UREA NITROGEN 17 mg/dL (7-20); CARBON DIOXIDE 23 mmol/L (22-30); CHLORIDE 107 mmol/L (98-107); CREATINE KINASE 81 U/L (30-135); GLUCOSE 120 mg/dL (75-110); POTASSIUM 3.8 mmol/L (3.6-5.0); SODIUM 139.2 mmol/L (137-145); TOTAL PROTEIN 6.9 g/dL (6.3-8.2)
--- NOTE | 2018-10-19 18:41 | EKG REPORT ---
SEVERITY:- ABNORMAL ECG - SINUS TACHYCARDIA PROBABLE RVH W/ SECONDARY REPOL ABNORMALITY INFERIOR Q WAVES, PROBABLY NORMAL VARIATION NONSPECIFIC REPOL ABNORMALITY, LATERAL LEADS : Confirmed by: Giovanny Brito MD 19-Oct-2018 18:41:14
[2018-10-19] MEDS ORDERED: KETOROLAC TROMETHAMINE INJ/PF 30 MG/1 ML SDV IV ONE (18:47)
[2018-10-19] MEDS ORDERED: METOPROLOL TARTRATE PF/INJ 5 MG/5 ML SDV IV ONE (18:47)
[2018-10-19 18:48] LABS: APPEARANCE,URINE SLIGHTLY-CLOUDY; BILIRUBIN,URINE NEGATIVE (NEGATIVE); COLOR,URINE YELLOW; GLUCOSE, URINE NEGATIVE (NEGATIVE); KETONES,URINE NEGATIVE (NEGATIVE); LEUKOCYTE ESTERASE,URINE NEGATIVE (NEGATIVE); NITRITE,URINE NEGATIVE (NEGATIVE); PROTEIN,URINE NEGATIVE (NEGATIVE); URINE SPECIFIC GRAVITY 1.023
[2018-10-19 18:56] LABS: CREATINE KINASE MB < 0.22 ng/mL (<4.55); TROPONIN I < 0.012 ng/mL
[2018-10-19 19:03] LABS: URINE AMPHETAMINES SCREEN NEGATIVE; URINE BARBITURATES SCREEN NEGATIVE; URINE BENZODIAZEPINES SCREEN NEGATIVE; URINE COCAINE SCREEN NEGATIVE; URINE MARIJUANA (THC) SCREEN NEGATIVE; URINE METHADONE SCREEN NEGATIVE; URINE PHENCYCLIDINE SCREEN NEGATIVE
[2018-10-19 23:28] VITALS: BP 123/69
== END 2018-10-19 23:28 | disposition home or self-care (01) ==
LOC: ER 17:30
DX: R55 Syncope and collapse (principal); R00.0 Tachycardia, unspecified; R00.2 Palpitations; R51 Headache; Z88.1 Allergy status to other antibiotic agents; Z91.048 Other nonmedicinal substance allergy status; Z88.5 Allergy status to narcotic agent; Z91.040 Latex allergy status; Z88.8 Allergy status to other drugs, medicaments and biological substances
CPT/HCPCS: 93005; 99284; 96361; 96374; 96375; 36415; 82553; 82550; 85025; 81025; 80053; 81001; 84484; 80307; 93010; J1885; J2060; J7030

== ENCOUNTER 2018-11-28 16:40 | Emergency (ER) | payer MEDICAID ==
[2018-11-28 17:07] VITALS: BP 129/75
--- NOTE | 2018-11-28 17:23 | ER Document Report ---
ED Medical Screen (RME) - General Chief Complaint: Palpitations Stated Complaint: ARM NUMBNESS/DIZZY Time Seen by Provider: 11/28/18 17:21 Mode of Arrival: Wheelchair Information source: Patient Notes: 22-year-old female presented to ED for complaint of left arm numbness left face numbness left leg numbness. She states she is also dizzy lightheaded feels like she is going to pass out. She also states she feels like she has to go to the bathroom right away. 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 She had a D&C, tonsillectomy, and knee infection removed. She does not smoke drink or use any drugs. She states she lives with her mother and her 2 daughters. Patient exhibits symptoms of a panic attack. Pulse in the emergency room when I checked it was 108 apically with a temperature of 97.8. I have greeted and performed a rapid initial assessment of this patient. A comprehensive ED assessment and evaluation of the patient, analysis of test results and completion of medical decision making process will be conducted by an additional ED providers. Dictation of this chart was performed using voice recognition software; therefore, there may be some unintended grammatical errors. TRAVEL OUTSIDE OF THE [place] IN LAST 30 DAYS: No - Related Data Allergies/Adverse Reactions: azithromycin [From Zithromax Z-Mark] Allergy (Mild, Verified 06/25/18 14:05) rash adhesive [Adhesive] Allergy (Verified 06/25/18 14:05) codeine [Codeine] Allergy (Verified 06/25/18 14:05) ITCHING, HIVES latex [Latex] Allergy (Verified 06/25/18 14:05) metoclopramide [From Reglan] Allergy (Verified 06/25/18 14:05) morphine [Morphine] Allergy (Verified 06/25/18 14:05) ITCHING, HIVES diphenhydramine [From Benadryl] Adverse Reaction (Verified 06/25/18 14:05) Tachycardia Past Medical History - Social History Chew tobacco use (# tins/day): No Frequency of alcohol use: None Drug Abuse: None - Past Medical History Cardiac Medical History: Reports: Hx Hypertension - KEN SYNDROME/murmur Pulmonary Medical History: Denies: Hx Asthma Renal/ Medical History: Reports: Hx Ovarian Cysts. Denies: Hx Peritoneal Dialysis Musculoskeltal Medical History: Reports Hx Musculoskeletal Trauma Skin Medical History: Reports Hx Eczema Psychiatric Medical History: Reports: Hx Anxiety, Hx Attention Deficit Hyperactivity Disorder, Hx Depression Past Surgical History: Reports: Hx Cholecystectomy, Hx Gynecologic Surgery - D&C x 2, Hx Orthopedic Surgery - left knee, Hx Tonsillectomy - Immunizations Immunizations up to date: Yes Hx Diphtheria, Pertussis, Tetanus Vaccination: Yes History of Influenza Vaccine for 04/2017 - 09/2017 Season: No Physical Exam - Vital signs Vitals: Pulse Resp BP Pulse Ox 135 H 18 129/75 H 100 11/28/18 16:53 11/28/18 16:53 11/28/18 16:53 11/28/18 16:53 Course - Vital Signs Vital signs: Temp Pulse Resp BP Pulse Ox 97.8 F 106 H 18 129/75 H 100 11/28/18 17:19 11/28/18 17:19 11/28/18 16:53 11/28/18 16:53 11/28/18 16:53
[2018-11-28 18:01] LABS: ABSOLUTE BASOPHILS # (AUTO) 0.1 10^3/uL (0.0-0.2); ABSOLUTE EOSINOPHILS # (AUTO) 0.1 10^3/uL (0.0-0.6); ABSOLUTE LYMPHOCYTES (AUTO) 1.7 10^3/uL (0.5-4.7); ABSOLUTE MONOCYTES (AUTO) 0.5 10^3/uL (0.1-1.4); ABSOLUTE NEUT (AUTO) 4.6 10^3/uL (1.7-8.2); BASOPHILS % (AUTO) 0.7 % (0-2); EOSINOPHILS % (AUTO) 1.3 % (0-6); HEMATOCRIT 39.3 % (36.0-47.0); HEMOGLOBIN 13.1 g/dL (12.0-15.5); MEAN CORPUSCULAR HEMOGLOBIN 27.7 pg (27.0-33.4); MEAN CORPUSCULAR HGB CONC 33.4 g/dL (32.0-36.0); MEAN CORPUSCULAR VOLUME 83 fl (80-97); MONOCYTES % (AUTO) 7.7 % (3-13); PLATELET COUNT 318 10^3/uL (150-450); RED BLOOD COUNT 4.74 10^6/uL (3.72-5.28); RED CELL DISTRIBUTION WIDTH 15.6 % (11.5-14.0); SEGMENTED NEUTROPHILS % (AUTO) 66.3 % (42-78); TOTAL CELLS COUNTED % (AUTO) 100 %
[2018-11-28 18:03] LABS: APPEARANCE,URINE CLEAR; BILIRUBIN,URINE NEGATIVE (NEGATIVE); COLOR,URINE COLORLESS; GLUCOSE, URINE NEGATIVE (NEGATIVE); KETONES,URINE NEGATIVE (NEGATIVE); LEUKOCYTE ESTERASE,URINE NEGATIVE (NEGATIVE); NITRITE,URINE NEGATIVE (NEGATIVE); PROTEIN,URINE NEGATIVE (NEGATIVE); URINE SPECIFIC GRAVITY 1.002; UROBILINOGEN,URINE NEGATIVE mg/dL (<2.0)
[2018-11-28 18:10] LABS: ALANINE AMINOTRANSFERASE 24 U/L (9-52); ALBUMIN 4.9 g/dL (3.5-5.0); ALKALINE PHOSPHATASE 77 U/L (38-126); ANION GAP 16 (5-19); ASPARTATE AMINO TRANSFERASE 18 U/L (14-36); BILIRUBIN,DIRECT 0.2 mg/dL (0.0-0.4); BILIRUBIN,TOTAL 0.7 mg/dL (0.2-1.3); BLOOD UREA NITROGEN 10 mg/dL (7-20); CARBON DIOXIDE 20 mmol/L (22-30); CHLORIDE 106 mmol/L (98-107); GLUCOSE 106 mg/dL (75-110); POTASSIUM 3.8 mmol/L (3.6-5.0); SODIUM 141.9 mmol/L (137-145); TOTAL PROTEIN 7.5 g/dL (6.3-8.2)
--- NOTE | 2018-11-28 18:53 | EKG REPORT ---
SEVERITY:- ABNORMAL ECG - SINUS TACHYCARDIA PROBABLE RVH W/ SECONDARY REPOL ABNORMALITY INFERIOR Q WAVES, PROBABLY NORMAL VARIATION NONSPECIFIC ST-T CHANGES- INFERIOR LEADS : Confirmed by: Giovanny Brito MD 28-Nov-2018 18:52:46
== END 2018-11-28 17:45 | disposition left against medical advice (07) ==
LOC: ER 16:40
DX: R20.0 Anesthesia of skin (principal); R42 Dizziness and giddiness; Q79.6 Ehlers-Danlos syndromes; I10 Essential (primary) hypertension; Z86.79 Personal history of other diseases of the circulatory system; Z88.1 Allergy status to other antibiotic agents; Z91.048 Other nonmedicinal substance allergy status; Z91.040 Latex allergy status; Z88.5 Allergy status to narcotic agent; Z88.8 Allergy status to other drugs, medicaments and biological substances; Z53.20 Procedure and treatment not carried out because of patient's decision for unspecified reasons
CPT/HCPCS: 36415; 80053; 81001; 84702; 85025; 93005; 93010; 99281

== ENCOUNTER → 2018-12-05 | Outpatient (CLI) | payer MEDICAID ==
--- NOTE | 2018-12-05 14:16 | WOMENS IMAGING REPORT ---
EXAM DESCRIPTION: U/S BREAST UNILATERAL, COMPL COMPLETED DATE/TIME: 12/05/2018 1:32 pm REASON FOR STUDY: N63.10 UNSPECIFIED LUMP IN RIGHT BREAST,UNSPECIFIED QUADRANT N63.10 UNSPECIFIED L UMP IN THE RIGHT BREAST, UNSPECIFIED PAULIE COMPARISON: None. TECHNIQUE: Real-time and static grayscale imaging performed of the right breast targeted to the area of clinical/mammographic concern. Selected color Doppler images recorded. LIMITATIONS: None. FINDINGS: MASS: No mass identified. Normal glandular tissue. OTHER: No other significant finding. IMPRESSION: No suspicious findings detected by ultrasound. BIRAD: Negative. RECOMMENDATION: RECOMMENDED FOLLOW-UP: Follow-up as clinically indicated. COMMENT: The [employer] ([employer]) has developed recommendations for screening MRI of the breasts in certain patient populations, to be used in conjunction with mammography. Breast MRI s urveillance may be appropriate for women with more than 20% lifetime risk of developing breast cancer as determined by genetic testing, significant family history of the disease, or history of mantle r adiation for Hodgkins Disease. ACR Practice Guidelines 2008. TECHNICAL DOCUMENTATION: JOB ID: [id number] [employer]- All Rights Reserved Reading location - IP/workstation name: [email or web address]
== END ==
LOC: WI 13:06
PROVIDERS: ATTEND Nurse Practitioner Family
DX: N63.10 Unspecified lump in the right breast, unspecified quadrant (principal)
CPT/HCPCS: 76641

== ENCOUNTER 2019-08-06 10:20 | Emergency (ER) | payer MEDICAID ==
[2019-08-06 10:36] VITALS: BP 123/81
[2019-08-06] MEDS ORDERED: IBUPROFEN 600 MG TABLET PO ONE (10:42)
[2019-08-06] MEDS ORDERED: ACETAMINOPHEN 325 MG TABLET PO ONE (10:42)
--- NOTE | 2019-08-06 10:45 | ER Document Report ---
HPI - HPI Time Seen by Provider: 08/06/19 10:37 Pain Level: 5 Notes: Patient is a 23-year-old female who presents to the ED complaining of nasal congestion/discharge, dry nonproductive cough, fever, body ache 2 days. Patient states that her daughter was tested positive for influenza B the other day. Patient states that she is still eating and drinking without difficulties, but does have a decreased p.o. intake. She is still urinating normally having normal bowel movements. Patient has been using some [id number] meds for symptoms. She denies any significant past medical history including cardiopulmonary history and immunocompromised conditions aside from POTS. Denies any current headache, neck pain, sore throat, chest pain, palpitations, syncope, shortness of breath, wheeze, dyspnea, abdominal pain, nausea/vomiting/diarrhea, urinary retention, dysuria, hematuria, or rash. - ROS Systems Reviewed and Negative: Yes All other systems reviewed and negative - CONSTITUTIONAL Constitutional: REPORTS: Fever. DENIES: Chills - RESPIRATORY Respiratory: REPORTS: Coughing - REPRODUCTIVE Reproductive: DENIES: : Past Medical History - Social History Smoking Status: Unknown if Ever Smoked Family History: Reviewed & Not Pertinent, CVA, Hyperlipidemia, Hypertension, Other - Lupus, [place] Patient has suicidal ideation: No Patient has homicidal ideation: No - Past Medical History Cardiac Medical History: Reports: Hx Hypertension - KEN SYNDROME/murmur Pulmonary Medical History: Denies: Hx Asthma Renal/ Medical History: Reports: Hx Ovarian Cysts. Denies: Hx Peritoneal Dialysis Musculoskeletal Medical History: Reports Hx Musculoskeletal Trauma Skin Medical History: Reports Hx Eczema Psychiatric Medical History: Reports: Hx Anxiety, Hx Attention Deficit Hyperactivity Disorder, Hx Depression Past Surgical History: Reports: Hx Cholecystectomy, Hx Gynecologic Surgery - D&C x 2, Hx Orthopedic Surgery - left knee, Hx Tonsillectomy - Immunizations Immunizations up to date: Yes Hx Diphtheria, Pertussis, Tetanus Vaccination: Yes Vertical Provider Document - CONSTITUTIONAL Agree With Documented VS: Yes Notes: PHYSICAL EXAMINATION: GENERAL: Well-appearing, well-nourished and in no acute distress. A&Ox4. Answers questions appropriately. Moves comfortably w/o notable distress HEAD: Atraumatic, normocephalic. EYES: Pupils equal round and reactive to light, extraocular movements intact, sclera anicteric, conjunctiva are normal. ENT: Nares patent and with clear discharge. oropharynx no erythema without exudates. No tonsilar hypertrophy without erythema or exudate. No palatine shift. Uvula midline. No tongue protrusion. No drooling, hoarseness, or airway compromise. Moist mucous membranes. No sinus tenderness. NECK: Normal range of motion, supple without lymphadenopathy. No r igidity/meningismus. LUNGS: Breath sounds clear to auscultation bilaterally and equal. No wheezes rales or rhonchi. No retractions HEART: Regular rate and rhythm without murmurs, rubs, gallops. ABDOMEN: Soft, nontender, nondistended abdomen. No guarding, no rebound. Normal bowel sounds present. No CVA tenderness bilaterally. NEUROLOGICAL: Normal speech, normal gait. PSYCH: Normal mood, normal affect. SKIN: Warm, Dry, normal turgor, no rashes or lesions noted. - INFECTION CONTROL TRAVEL OUTSIDE OF THE [place] IN LAST 30 DAYS: No Course - Re-evaluation Re-evalutation: 08/06/19 10:44 Patient is a well-hydrated 23-year-old female who presents to the ED with acute URI, suspect influenza. Vitals are acceptable. PE is otherwise unremarkable. No labs or imaging warranted at this time based on H&P. Patient has no significant cardiopulmonary or immunocompromised medical conditions. Patient's lungs are clear to auscultation bilaterally without tachycardia, hypoxia, or tachypnea. Patient is tolerating p.o. without any difficulties. Thoroughly reviewed the risks, benefits, potential side effects, estimated cost without insurance with patient. After thorough review, patient declined Tamiflu at this time. Low suspicion for any meningitis, sepsis, peritonsillar/pharyngeal abscess, respiratory compromise, severe dehydration, or other emergent systemic condition at this time. Patient is aware this condition can change from initial presentation and she needs to monitor symptoms closely. Conservative measures otherwise for symptoms. Recheck with your PCM in 3-5 days. Return to the ED with any worsening/concerning symptoms otherwise as reviewed in discharge. Hector bennett is in agreement. - Vital Signs Vital signs: Temp Pulse Resp BP Pulse Ox 102.0 F H 130 H 16 123/81 97 08/06/19 10:26 08/06/19 10:26 08/06/19 10:26 08/06/19 10:26 01/19/20 10:26 Discharge - Discharge Clinical Impression: Acute URI Condition: Stable Disposition: HOME, SELF-CARE Instructions: Upper Respiratory Illness ([facility]) Additional Instructions: Maintain adequate fluid intake tylenol/ibuprofen as needed alternating every 3 hours for fever/body ache over the counter cold medication as needed for symptoms Humidified air may help Wash your hands regularly Wear a mask when coughing F/u: with your PCM in 3-5 days for a recheck Return to the ED with any fever, altered mental status/behavior, chest pain, palpitations, syncope, headache, neck pain/stiffness, shortness of breath, chest pains, wheezing, drooling, trouble swallowing/breathing, abdominal pain, n/v/d, rash, or worsening/concerning symptoms otherwise. Prescriptions: Benzonatate [Tessalon Perle 100 mg Capsule] 100 mg PO Q8HP PRN #15 cap PRN Reason: Referrals: DEVIN VAZ, DIRECT RESPONSE CONSULTANT [Primary Care Provider] - Follow up as needed
== END 2019-08-06 10:47 | disposition home or self-care (01) ==
LOC: ER 10:20
DX: J06.9 Acute upper respiratory infection, unspecified (principal); R09.81 Nasal congestion; R05 Cough; R50.9 Fever, unspecified; R52 Pain, unspecified; R63.0 Anorexia; I10 Essential (primary) hypertension; Z20.828 Contact with and (suspected) exposure to other viral communicable diseases
CPT/HCPCS: 99283; J3490 ×2

== ENCOUNTER 2020-06-01 02:45 | Emergency (ER) | payer OTHER, MEDICAID ==
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
[2020-06-01] MEDS ORDERED: ACETAMINOPHEN 325 MG TABLET PO ONE (05:44)
[2020-06-01 05:45] VITALS: BP 129/66
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
--- NOTE | 2020-06-01 09:16 | EKG REPORT ---
SEVERITY:- ABNORMAL ECG - SINUS TACHYCARDIA BORDERLINE RIGHT AXIS DEVIATION BORDERLINE Q WAVES IN INFERIOR LEADS INFERIOR Q WAVES, PROBABLY NORMAL VARIATION NONSPECIFIC T ABNORMALITIES, INFERIOR LEADS : Confirmed by: Whitley Arenas 01-Jun-2020 09:15:46
== END 2020-06-01 05:55 | disposition left against medical advice (07) ==
LOC: ER 02:45
DX: O9A.219 Injury, poisoning and certain other consequences of external causes complicating pregnancy, unspecified trimester (principal); R07.9 Chest pain, unspecified; M54.2 Cervicalgia; R51.9 Headache, unspecified; R10.32 Left lower quadrant pain; R10.2 Pelvic and perineal pain; V87.7XXA Person injured in collision between other specified motor vehicles (traffic), initial encounter; Z53.20 Procedure and treatment not carried out because of patient's decision for unspecified reasons
CPT/HCPCS: 71046; 72125; 93005; 93010; 99285

== ENCOUNTER → 2020-06-19 | Outpatient (CLI) | payer MEDICAID ==
--- NOTE | 2020-06-19 15:52 | RADIOLOGY REPORT (SQ) ---
EXAM DESCRIPTION: U/S ABDOMEN LIMITED W/O DOP IMAGES COMPLETED DATE/TIME: 06/19/2020 3:27 pm REASON FOR STUDY: R10.31 RIGHT LOWER QUADRANT PAIN R10.31 RIGHT LOWER QUADRANT PAIN COMPARISON: None. TECHNIQUE: Static and real time butler scale imaging performed of the right lower quadrant with additi onal compression maneuvers. LIMITATIONS: None. FINDINGS: APPENDIX: Not visualized. BOWEL: Active peristalsis with fluid in the bowel. COMPRESSION MANEUVERS: No rebound pain with compression. OTHER: No other significant finding. IMPRESSION: APPENDIX NOT IDENTIFIED. ACTIVE PERISTALSIS. TECHNICAL DOCUMENTATION: JOB ID: [id number] 2010 [employer]- All Rights Reserved Reading location - IP/workstation name: [id number]
== END ==
LOC: RAD 14:39
PROVIDERS: ATTEND Obstetrics & Gynecology
DX: R10.31 Right lower quadrant pain (principal); R19.2 Visible peristalsis
CPT/HCPCS: 76705

== ENCOUNTER 2020-07-06 23:01 | Emergency (ER) | payer MEDICAID ==
--- NOTE | 2020-07-07 00:23 | ER Document Report ---
ED Skin Rash/Insect Bite/Abscs - General Chief Complaint: Abscess Stated Complaint: POSSIBLE ABSCESS LEFT LEG/CHILLS VOMITING Time Seen by Provider: 07/06/20 23:16 Primary Care Provider: DEVIN VAZ NP [Primary Care Provider] - Follow up as needed Mode of Arrival: Ambulatory Information source: Patient Notes: Patient is a 24-year-old female comes emergency room complaining of having an abscess on her left lateral thigh. Patient states that it started approximately 2 to 3 days ago. She states that she contacted her [facility] video chat and the MD looked at it yesterday and told her it was probably "MRSA". She called her in some Bactrim. Patient went and got the Bactrim did not start until this morning and had a first dose but it is gotten more inflamed so she made another video call and the physician who took this call told her she needed to come to ER to have it evaluated. Patient denies any nausea vomiting or fevers. She is not had these in the past. TRAVEL OUTSIDE OF THE [place] IN LAST 30 DAYS: No - HPI Patient complains to provider of: Skin rash/lesion, Tender/swollen area, Possib le insect bite Onset: Other - 2 days ago Onset/Duration: Gradual Quality of pain: Achy, Throbbing Severity: Moderate Pain Level: 3 Skin Character: Abscess Skin Temperature: Hot Quality of rash: Painful Identify cause: No Exacerbated by: Denies Relieved by: Denies Similar symptoms previously: Yes Recently seen / treated by doctor: Yes - Related Data Allergies/Adverse Reactions: azithromycin [From Zithromax Z-Mark] Allergy (Mild, Verified 06/25/18 14:05) rash adhesive [Adhesive] Allergy (Verified 06/25/18 14:05) codeine [Codeine] Allergy (Verified 06/25/18 14:05) ITCHING, HIVES latex [Latex] Allergy (Verified 06/25/18 14:05) metoclopramide [From Reglan] Allergy (Verified 06/25/18 14:05) morphine [Morphine] Allergy (Verified 06/25/18 14:05) ITCHING, HIVES diphenhydramine [From Benadryl] Adverse Reaction (Verified 06/25/18 14:05) Tachycardia Past Medical History - General Information source: Patient - Social History Smoking Status: Never Smoker Chew tobacco use (# tins/day): No Smoking Education Provided: No Frequency of alcohol use: Occasional Drug Abuse: None Family History: Reviewed & Not Pertinent, CVA, Hyperlipidemia, Hypertension, Other - Lupus, [place] Patient has homicidal ideation: No - Past Medical History Cardiac Medical History: Reports: Hx Hypertension - KEN SYNDROME/murmur Pulmonary Medical History: Denies: Hx Asthma Renal/ Medical History: Reports: Hx Ovarian Cysts. Denies: Hx Peritoneal Dialysis Musculoskeletal Medical History: Reports Hx Musculoskeletal Trauma Skin Medical History: Reports Hx Eczema Psychiatric Medical History: Reports: Hx Anxiety, Hx Attention Deficit Hyperactivity Disorder, Hx Depression Past Surgical History: Reports: Hx Cholecystectomy, Hx Gynecologic Surgery - D&C x 2, Hx Orthopedic Surgery - left knee, Hx Tonsillectomy - Immunizations Immunizations up to date: Yes Hx Diphtheria, Pertussis, Tetanus Vaccination: Yes Review of Systems - Review of Systems Constitutional: No symptoms reported EENT: No symptoms reported Cardiovascular: No symptoms reported Respiratory: No symptoms reported Gastrointestinal: No symptoms reported Genitourinary: No symptoms reported Female Genitourinary: No symptoms reported Musculoskeletal: No symptoms reported Skin: See HPI, Other - Abscess/cellulitis Hematologic/Lymphatic: No symptoms reported Neurological/Psychological: No symptoms reported -: Yes All other systems reviewed and negative Physical Exam - Vital signs Vitals: Temp Pulse Resp BP Pulse Ox 97.8 F 93 16 130/71 H 100 07/06/20 23:07 07/06/20 23:07 07/06/20 23:07 07/06/20 23:07 07/06/20 23:07 Interpretation: Hypertensive - Notes Notes: PHYSICAL EXAMINATION: GENERAL: Patient is well-nourished well-developed 24-year-old female in no acute distress. She does appear somewhat uncomfortable. LUNGS: Breath sounds clear to auscultation bilaterally and equal. No wheezes rales or rhonchi. HEART: Regular rate and rhythm without murmurs Musculoskeletal: Normal range of motion, no pitting or edema. No cyanosis. NEUROLOGICAL: Normal speech, normal gait. Normal sensory, motor exams PSYCH: Normal mood, normal affect. SKIN: Examination patient's area concern is her left lateral mid thigh she has an area that is approximately 4 cm across that is erythematous and somewhat mildly indurated. In the center of this 4 cm area of erythema is a half a centimeter pustule. Palpation around the area does show some mild fluctuance. Mostly though the area feels like inflamed tissue. Course - Re-evaluation Re-evalutation: 07/07/20 00:22 I obtained only a small amount less than 1 mL of purulent white pus after the I&D and did not feel necessary to put in any iodoform. It appears patient had caught this early and had more cellulitis than abscess. She is on Bactrim DS 1 tablet twice daily for 10 days by her MD I am going to add some Keflex to this. I have cultured it and will send it out. - Vital Signs Vital signs: Temp Pulse Resp BP Pulse Ox 97.8 F 93 16 130/71 H 100 07/06/20 23:15 07/06/20 23:07 07/06/20 23:07 07/06/20 23:07 07/06/20 23:07 - Laboratory Results Critical Laboratory Results Reviewed: No Critical Results - Radiology Results Critical Radiology Results Reviewed: No Critical Results Procedures - Incision and Drainage Left Lateral Thigh Time completed: 00:23 Type: Simple Anesthetic type: 1% Lidocaine mL's of anesthetic: 2 Blade size: 11 I&D procedure: Shurclens applied Incision Method: Incision made by scalpel Amount/type of drainage: Small amount purulent thick pus approximately 1 mL Notes: 07/07/20 00:24 Patient tolerated this procedure without any complications. Discharge - Discharge Clinical Impression: Abscess, Cellulitis of left thigh Condition: Stable Disposition: HOME, SELF-CARE Instructions: Abscess ([facility]), Cephalexin ([facility]), Post Incision and Drainage, Tri methoprim-Sulfa ([facility]) Additional Instructions: As we discussed do not take a bath while this is actively open. You may take a shower. Also use warm moist compresses this can be a washrag as warm as you can stand up from the sink do not get it scalding apply it letter cool down reapply 3 times and let a cool down. Do this 3-4 times a day for the next 3 to 4 days. You may add an antibiotic cream if you would like but it is not necessary. You can also change to a Band-Aid when the bleeding stops. I am adding another antibiotic on which is Keflex you will take this 4 times a day for 7 days and continue to take your Bactrim as prescribed. I am also writing you for a Diflucan pill this will help stop you from getting a yeast infection. Also use some probiotics like yogurt which will also help coat your stomach and protect you from getting a yeast infection. Should you have any concerns or problems you can return to ER for reevaluation. Monitor closely if it should get any bigger over the next 48 hours return to ER for reevaluation. You can take ibuprofen and Tylenol for discomfort. Prescriptions: Fluconazole [Diflucan] 150 mg PO ONCE #1 tablet Cephalexin Monohydrate [Keflex 500 mg Capsule] 500 mg PO Q6H 7 Days #28 capsule Forms: Elevated Blood Pressure, Return to Work Referrals: DEVIN VAZ NP [Primary Care Provider] - Follow up as needed
[2020-07-07 00:41] VITALS: BP 119/59
== END 2020-07-07 00:43 | disposition home or self-care (01) ==
LOC: ER 23:01
DX: L02.416 Cutaneous abscess of left lower limb (principal); L03.116 Cellulitis of left lower limb; I10 Essential (primary) hypertension; Z88.1 Allergy status to other antibiotic agents; Z91.048 Other nonmedicinal substance allergy status; Z88.6 Allergy status to analgesic agent; Z88.5 Allergy status to narcotic agent; Z91.041 Radiographic dye allergy status; Z88.8 Allergy status to other drugs, medicaments and biological substances
CPT/HCPCS: 87070; 87075; 87077; 87186; 87205; 99283